=== PATIENT | female | born 1980 | race Caucasian/White ===

== ENCOUNTER 2019-04-27 17:23 | Emergency (ER) | payer OTHER, SELFPAY ==
[2019-04-27 17:33] VITALS: BP 122/78; PULSE 72; RESP 16; TEMP 36.9; O2SAT 99
--- NOTE | 2019-04-27 17:49 | ED.URI ---
HPI - URI/Sore Throat General Chief Complaint: Upper Respiratory Infection Stated Complaint: Sore Throat Time Seen by Provider: 04/27/19 17:49 Source: patient and RN notes reviewed Mode of arrival: ambulatory Limitations: no limitations History of Present Illness HPI Narrative: 38-year-old female presents with concern for sore throat, headache, exposure to strep pharyngitis, started this morning. Reports taking ibuprofen and Tylenol. MD elicited complaint: sore throat Related Data Home Medications Medication Instructions Recorded Confirmed lisinopril 02/10/19 Allergies Allergy/AdvReac Type Severity Reaction Status Date / Time codeine Allergy Intermediate Itching Verified 04/27/19 17:48 Sulfa (Sulfonamide Allergy Mild Unknown Verified 04/27/19 17:48 Antibiotics) Review of Systems Review of Systems: Narrative: CONSTITUTIONAL: Reports malaise, fatigue. Denies chills, sweats, or fever. EYES: Denies visual changes, redness, or discharge. ENT: Denies rhinorrhea, congestion, sinus pain, otalgia. Reports sore throat. CARDIOVASCULAR: Denies chest pain, palpitations, or edema. RESPIRATORY: Denies cough or dyspnea. GASTROINTESTINAL: Denies abdominal pain, nausea, vomiting, diarrhea SKIN: Denies rash or itching. MUSCULOSKELETAL: Denies myalgia. NEUROLOGIC: Reports headache. All systems reviewed & are unremarkable except as noted in HPI and below PMFSH Past Medical History Medical History Anxiety Hypertension Vapes nicotine containing substance Comments At time of signature, agree with nursing past medical, surgical, social and family history. There is no relevant family history pertinent to the presenting complaint Exam Narrative: Exam Narrative: GENERAL: Well-appearing, well-nourished, and in no acute distress. HEAD: Normocephalic EYES: PERRLA, conjunctivae clear ENT: Nares clear, turbinates pink, no discharge. Mucous membranes moist. TM pearly streeter with sharp light reflex bilaterally; no tragal tenderness. Oropharynx erythematous without lesions. Tonsils enlarged and without exudate, no drooling, no hoarseness, no trismus. NECK: Supple. CHEST: Clear to auscultation, breath sounds equal. No wheezing, rhonchi, rales, or stridor. No respiratory distress, speaks in full sentences. HEART: Regular rate and rhythm. No murmur heard. Normal peripheral pulses. SKIN: Warm, dry, no rash. NEURO: Alert and oriented x3. PSYCH: Normal mood and affect Course Course Emergency Course: Patient is aware of diagnosis, understands and agrees to treatment plan. Anticipatory guidance given. Patient agrees to follow-up as directed and is aware of reasons to seek care at the emergency department. Portions of this record may have been created with voice recognition software Vital Signs Vital signs: Vital Signs Temperature 98.4 F 04/27/19 17:33 Pulse Rate 72 04/27/19 17:33 Respiratory Rate 16 04/27/19 17:33 Blood Pressure 122/78 04/27/19 17:33 Pulse Oximetry 99 04/27/19 17:33 Temperature 98.4 F 04/27/19 17:33 Pulse Rate 72 04/27/19 17:33 Respiratory Rate 16 04/27/19 17:33 Blood Pressure 122/78 04/27/19 17:33 Pulse Oximetry 99 04/27/19 17:33 Reviewed. MDM - URI/Sore Throat MDM Narrative Medical decision making narrative: Differential diagnosis considered: Strep pharyngitis, allergic rhinitis, upper respiratory tract infection, sinusitis, rhinosinusitis, nasopharyngitis. viral pharyngitis, otitis media, otitis externa, pneumonia, bronchitis, viral cough syndrome, viral syndrome, and influenza. Exam findings show no acute concerns or changes; patient is non-toxic appearing and is in no distress. Patient is appropriate for outpatient treatment and follow-up. Lab Data Attestation: I reviewed the patient's lab results. Labs: Strep Screen Presumptive Negative *(Reference Range: Negative)* Critical Care Time Critical Care Time Critical Care Time: No Discharge Pl
== END 2019-04-27 18:17 | disposition home or self-care (01) ==
PROVIDERS: Emergency Provider Nurse Practitioner
DX: J03.90 Acute tonsillitis, unspecified (principal); Z20.818 Contact with and (suspected) exposure to other bacterial communicable diseases; I10 Essential (primary) hypertension; F17.200 Nicotine dependence, unspecified, uncomplicated
CPT/HCPCS: 87081; 87880; 99213; G0463

== ENCOUNTER 2021-01-25 17:59 | Emergency (ER) | payer OTHER, SELFPAY ==
[2021-01-25 18:14] VITALS: BP 141/93; PULSE 103; RESP 16; TEMP 36.9; O2SAT 99
--- NOTE | 2021-01-25 18:43 | ED.URI ---
HPI - URI/Sore Throat General Chief Complaint: Upper Respiratory Infection Stated Complaint: sore throat History of Present Illness HPI Narrative: This is a 40 year old female that come in complaining of 2 days of sore throat not feeling well, congestion, head pressure and feeling tired. Patient denies taking anything at this time for symptoms says that her child has strep throat at home Related Data Home Medications Medication Instructions Recorded Confirmed Iron 01/25/21 Xanax 01/25/21 ergocalciferol (vitamin D2) 01/25/21 folic acid 01/25/21 hydrochlorothiazide 01/25/21 lisinopril 01/25/21 metformin 01/25/21 Allergies Allergy/AdvReac Type Severity Reaction Status Date / Time codeine Allergy Intermediate Itching Verified 04/27/19 17:48 Sulfa (Sulfonamide Allergy Mild Unknown Verified 04/27/19 17:48 Antibiotics) vancomycin Allergy Hives Verified 01/25/21 18:29 Review of Systems Review of Systems: sore throat, body aches, headache All systems reviewed & are unremarkable except as noted in HPI and below PMFSH Past Medical History Medical History Anxiety Hypertension Vapes nicotine containing substance Comments At time as signature, I have reviewed and agree with nursing past medical, social, surgical and family history. Please see nursing chart for further information. There is no relevant family history pertinent to the presenting complaint. Exam Narrative: GENERAL:Ill-appearing, well-nourished, and in no acute distress. HEAD:Normocephalic EYES: PERRLA and EOMI. ENT: Nares clear,Mucous membranes moist. Pharyngeal erythema with enlarged tonsils CHEST: Clear to auscultation. No respiratory distress. HEART: Regular rate and rhythm. ABDOMEN: Soft, nontender,. EXTREMITIES: Normal range of motion. No edema. SKIN: Warm, dry, no rash. NEURO: No focal deficits. Alert and oriented x3. Course Course Emergency Course: Negative strep Vital Signs Vital signs: Vital Signs Temperature 98.4 F 01/25/21 18:14 Pulse Rate 103 H 01/25/21 18:14 Respiratory Rate 16 01/25/21 18:14 Blood Pressure 141/93 H 01/25/21 18:14 Pulse Oximetry 99 01/25/21 18:14 Temperature 98.4 F 01/25/21 18:14 Pulse Rate 103 H 01/25/21 18:14 Respiratory Rate 16 11/11/21 18:14 Blood Pressure 141/93 H 01/25/21 18:14 Pulse Oximetry 99 01/25/21 18:14 MDM - URI/Sore Throat Differential Diagnosis Differential diagnosis: Likely upper respiratory infection, otitis media, sinusitis, viral infection, bronchitis, influenza and pharyngitis Lab Data Labs: Strep Screen Presumptive Negative *(Reference Range: Negative)* Discharge Plan Discharge Clinical Impression: Upper respiratory infection Qualifiers: URI type: unspecified URI Qualified Code(s): J06.9 - Acute upper respiratory infection, unspecified Acute tonsillitis Qualifiers: Pharyngitis/tonsillitis etiology: unspecified etiology Qualified Code(s): J03.90 - Acute tonsillitis, unspecified Hypertension Qualifiers: Hypertension type: unspecified Qualified Code(s): I10 - Essential (primary) hypertension Patient Disposition: Home, Self-Care Condition: Stable Instructions: Antibiotic Form, Swimmer's Ear (ED), Tonsillitis (ED) Additional Instructions: Your strep test today was negative. A throat culture will be sent to the laboratory for further testing. IF the test is positive, you will receive a phone call within 48 hours and an appropriate antibiotic will be initiated at that time. You will not receive a phone call if the test is negative. Until the throat culture proves otherwise, you should proceed with treating this is as a viral pharyngitis. Salt water gargles may alleviate some of your throat discomfort. Take Tylenol and/or ibuprofen per the package instructions for pain/fever. We will go ahead and start you on some antibiotics Go to the ER if yo
== END 2021-01-25 18:52 | disposition home or self-care (01) ==
PROVIDERS: Emergency Provider Nurse Practitioner Family
DX: J06.9 Acute upper respiratory infection, unspecified (principal); J03.90 Acute tonsillitis, unspecified; I10 Essential (primary) hypertension; F17.290 Nicotine dependence, other tobacco product, uncomplicated
CPT/HCPCS: 87081; 87880; 99213; G0463

== ENCOUNTER 2021-06-08 10:36 | Emergency (ER) | payer OTHER, SELFPAY ==
[2021-06-08 10:51] VITALS: BP 126/83; PULSE 68; RESP 16; TEMP 37.1; O2SAT 100
--- NOTE | 2021-06-08 11:05 | ED.URI ---
HPI - URI/Sore Throat General Chief Complaint: Upper Respiratory Infection Stated Complaint: Sore Throat Time Seen by Provider: 06/08/21 11:05 Source: patient Mode of arrival: ambulatory Limitations: no limitations History of Present Illness HPI Narrative: 40-year-old female presents here with complaint of sore throat. States that it started this morning, also complaining of headache. Patient son was diagnosed with strep throat this morning. She is also wanting a strep swab. Denies fever and chills. Denies nausea vomiting diarrhea. All systems reviewed and negative except as noted above. Related Data Home Medications Medication Instructions Recorded Confirmed alprazolam 1 mg PO DIRECTED 06/08/21 06/08/21 amitriptyline 25 mg PO DIRECTED 06/08/21 06/08/21 ergocalciferol (vitamin D2) 1,250 mcg PO DIRECTED 06/08/21 06/08/21 famotidine 20 mg PO DAILY 06/08/21 06/08/21 folic acid 1 mg PO DAILY 06/08/21 06/08/21 lisinopril-hydrochlorothiazide 1 tablet PO DAILY 06/08/21 06/08/21 omeprazole 20 mg PO DAILY 06/08/21 06/08/21 trazodone 50 mg PO DIRECTED 06/08/21 06/08/21 Allergies Allergy/AdvReac Type Severity Reaction Status Date / Time codeine Allergy Mild Nausea and Verified 06/08/21 10:58 Vomiting Sulfa (Sulfonamide Allergy Mild Hives Verified 06/08/21 10:58 Antibiotics) vancomycin Allergy Hives Verified 06/08/21 10:58 Review of Systems Review of Systems: CONSTITUTIONAL: Denies fever, chills, or sweats. EYES: Denies visual changes, redness, or discharge. ENT: Denies rhinorrhea, congestion. Reports sore throat. Denies otalgia. CARDIOVASCULAR: Denies chest pain, palpitations, or edema. RESPIRATORY: Denies cough or dyspnea. GASTROINTESTINAL: Denies abdominal pain, nausea, vomiting, or diarrhea. GENITOURINARY: Denies dysuria or hematuria. SKIN: Denies rash or itching. MUSCULOSKELETAL: Denies back pain, joint pain, or myalgia. NEUROLOGIC: Reports headache. Denies numbness, or weakness. PSYCHIATRIC: Denies anxiety or depression. All other systems reviewed are negative, except as documented in HPI. PMFSH Past Medical History Medical History Anxiety Hypertension Vapes nicotine containing substance Comments At time of signature, agree with nursing past medical, surgical, social and family history. There is no relevant family history pertinent to the presenting complaint. Exam Narrative: GENERAL: This is a well-nourished, well-developed patient, in no apparent distress. HEAD: normocephalic, atraumatic. EYES: PERRL. Sclera clear/white. Vision is grossly intact. EARS: External ears normal NOSE: External nose normal THROAT: Mucous membranes moist, mild erythema to posterior pharynx with swelling. No exudates. NECK: Neck supple, non-tender without lymphadenopathy, masses or thyromegaly. CARDIOVASCULAR: Regular rate and rhythm without murmurs, gallops, or rubs. RESPIRATORY: Clear to auscultation. Breath sounds equal bilaterally. No wheezes, rales, or rhonchi. SKIN: warm, Dry, intact with no suspicious lesions or rash, good texture and turgor. NEURO: awake, alert, and oriented to person, place and time. There were no obvious focal neurologic abnormalities. EXTREMITIES: Normal range of motion to all extremities.. Course Course Level of Care: Express Care Visit Vital Signs Vital signs: Vital Signs Temperature 37.1 C 06/08/21 10:51 Pulse Rate 68 06/08/21 10:51 Respiratory Rate 16 06/08/21 10:51 Blood Pressure 126/83 06/08/21 10:51 Pulse Oximetry 100 06/08/21 10:51 Temperature 37.1 C 06/08/21 10:51 Pulse Rate 68 06/08/21 10:51 Respiratory Rate 16 06/08/21 10:51 Blood Pressure 126/83 06/08/21 10:51 Pulse Oximetry 100 06/08/21 10:51 Reviewed MDM - URI/Sore Throat MDM Narrative Medical decision making narrative: Rapid strep negative. Due to patient's symptoms and exposure to strep we will treat with ABX. Patient does not want amoxicillin, causes uses of
== END 2021-06-08 11:22 | disposition home or self-care (01) ==
PROVIDERS: Emergency Provider Nurse Practitioner Family
DX: J02.9 Acute pharyngitis, unspecified (principal); Z20.818 Contact with and (suspected) exposure to other bacterial communicable diseases; I10 Essential (primary) hypertension; F17.290 Nicotine dependence, other tobacco product, uncomplicated; F41.9 Anxiety disorder, unspecified
CPT/HCPCS: 87081; 87880; 99213; G0463

== ENCOUNTER 2021-07-29 10:33 | Emergency (ER) | payer OTHER, SELFPAY ==
[2021-07-29 10:43] VITALS: BP 119/81; PULSE 90; RESP 16; TEMP 36.6; O2SAT 100
--- NOTE | 2021-07-29 10:52 | ED.FEMALEGU ---
HPI - Female Genitourinary General Chief complaint: Urogenital-Female Stated complaint: UTI Time Seen by Provider: 07/29/21 10:52 Source: patient Mode of arrival: ambulatory Limitations: no limitations History of Present Illness HPI Narrative: 40-year-old female presents with complaint of urinary frequency, dysuria for 2 to 3 days. Reports she is using [id number] Azo with little relief. Today started having low back aching and pelvic pressure. Denies vaginal discharge. No concern for STDs. Afebrile. All systems reviewed and negative except as noted above. Related Data Home Medications Medication Instructions Recorded Confirmed alprazolam 1 mg PO DIRECTED 06/08/21 06/08/21 amitriptyline 25 mg PO DIRECTED 06/08/21 06/08/21 ergocalciferol (vitamin D2) 1,250 mcg PO DIRECTED 06/08/21 06/08/21 famotidine 20 mg PO DAILY 06/08/21 06/08/21 folic acid 1 mg PO DAILY 06/08/21 06/08/21 lisinopril-hydrochlorothiazide 1 tablet PO DAILY 06/08/21 06/08/21 omeprazole 20 mg PO DAILY 06/08/21 06/08/21 trazodone 50 mg PO DIRECTED 06/08/21 06/08/21 Allergies Allergy/AdvReac Type Severity Reaction Status Date / Time codeine Allergy Mild Nausea and Verified 06/08/21 10:58 Vomiting Sulfa (Sulfonamide Allergy Mild Hives Verified 06/08/21 10:58 Antibiotics) vancomycin Allergy Hives Verified 06/08/21 10:58 Review of Systems Review of Systems: CONSTITUTIONAL: Denies fever, chills, or sweats. EYES: Denies visual changes, redness, or discharge. ENT: Denies rhinorrhea, congestion, sore throat, or otalgia. CARDIOVASCULAR: Denies chest pain, palpitations, or edema. RESPIRATORY: Denies cough or dyspnea. GASTROINTESTINAL: Denies abdominal pain, nausea, vomiting, or diarrhea. GENITOURINARY: Reports dysuria, frequency, urgency. Denies hematuria. SKIN: Denies rash or itching. MUSCULOSKELETAL: Denies back pain, joint pain, or myalgia. NEUROLOGIC: Denies headache, numbness, or weakness. PSYCHIATRIC: Denies anxiety or depression. All other systems reviewed are negative, except as documented in HPI. PMFSH Past Medical History Medical History Anxiety Hypertension Vapes nicotine containing substance Comments At time of signature, agree with nursing past medical, surgical, social and family history. There is no relevant family history pertinent to the presenting complaint. Exam Narrative: GENERAL: This is a well-nourished, well-developed patient, in no apparent distress. HEAD: normocephalic, atraumatic. EYES: PERRL. Sclera clear/white. Vision is grossly intact. EARS: External ears normal NOSE: External nose normal NECK: Neck supple, non-tender without lymphadenopathy, masses or thyromegaly. CARDIOVASCULAR: Regular rate and rhythm without murmurs, gallops, or rubs. RESPIRATORY: Clear to auscultation. Breath sounds equal bilaterally. No wheezes, rales, or rhonchi. SKIN: warm, Dry, intact with no suspicious lesions or rash, good texture and turgor. NEURO: awake, alert, and oriented to person, place and time. There were no obvious focal neurologic abnormalities. EXTREMITIES: Normal range of motion to all extremities. Course Course Level of Care: Express Care Visit Vital Signs Vital signs: Vital Signs Temperature 36.6 C 07/29/21 10:43 Pulse Rate 90 07/29/21 10:43 Respiratory Rate 16 07/29/21 10:43 Blood Pressure 119/81 07/29/21 10:43 Pulse Oximetry 100 07/29/21 10:43 Temperature 36.6 C 07/29/21 10:43 Pulse Rate 90 07/29/21 10:43 Respiratory Rate 16 07/29/21 10:43 Blood Pressure 119/81 07/29/21 10:43 Pulse Oximetry 100 07/29/21 10:43 Reviewed MDM - Female Genitourinary MDM Narrative Medical decision making narrative: Patient is aware of diagnosis, understands and agrees to treatment plan. Anticipatory guidance given. Patient agrees to follow-up as directed and is aware of reasons to seek care at the emergency department. Portions of this record may have been created
== END 2021-07-29 11:06 | disposition home or self-care (01) ==
PROVIDERS: Emergency Provider Nurse Practitioner Family
DX: N39.0 Urinary tract infection, site not specified (principal); F41.9 Anxiety disorder, unspecified; I10 Essential (primary) hypertension; F17.290 Nicotine dependence, other tobacco product, uncomplicated
CPT/HCPCS: 81003; 87086; 87088; 99213; G0463

== ENCOUNTER 2021-08-28 17:44 | Outpatient (CLI) | payer OTHER, SELFPAY ==
--- NOTE | ~2021-08-28 | XR_ITS ---
EXAM: XR lumbar spine 2-3V DATE: 08/28/2021 18:09 HISTORY: ACUTE BI LOW BACK PAIN W/O SCIATICA . COMPARISON: 07/27/2018. FINDINGS: Cholecystectomy clips. 5 nonrib-bearing lumbar-type vertebral bodies. Pedicles intact. Nor mal vertebral body alignment. Vertebral body heights preserved. Mild disc space narrowing at L3-4 wit h marginal osteophytosis. Moderate disc space narrowing at L4-5. Multilevel lower lumbar facet sclero sis. No fracture or dislocation. IMPRESSION: Mild and moderate degenerative disc disease at L3-4 and L4-5, respectively. Multilevel lo wer lumbar facet arthropathy. Reviewed, dictated and finalized at location K. IMPRESSION: Mild and moderate degenerative disc disease at L3-4 and L4-5, respe ctively. Multilevel lower lumbar facet arthropathy.
== END 2021-08-28 17:45 | disposition home or self-care (01) ==
PROVIDERS: PCP Internal Medicine; Visit Provider Internal Medicine
DX: M47.816 Spondylosis without myelopathy or radiculopathy, lumbar region (principal)
CPT/HCPCS: 72100

== ENCOUNTER 2021-09-11 11:47 | Outpatient (CLI) | payer OTHER, SELFPAY ==
--- NOTE | ~2021-09-11 | MMUS_ITS ---
EXAMINATION: MM diagnostic dane BI w jermaine, US breast RT complete HISTORY: Possible right breast mass seen on outside CT examination. TECHNIQUE: Additional 3-D tomosynthesis images of the breasts were performed and synthetic 2-D images were generated. CAD analysis was submitted and interpreted. High resolution complete right breast ul trasound was performed. COMPARISON: Comparison to multiple prior studies sequentially, with oldest reviewed study dated 03/2017. BREAST PARENCHYMAL COMPOSITION: The breasts are heterogenously dense, which may obscure small masses FINDINGS: MAMMOGRAPHIC FINDINGS: There are no new masses, calcifications or architectural distortion in either breast to suggest malig tyrel. Stable benign-appearing left breast mass, previously biopsy-proven benign. ULTRASOUND: Complete US of all 4 quadrants of the right breast and retroareolar region was reviewed. Normal heter ogeneous echotexture without focal solid or cystic mass. IMPRESSION: 1. No evidence for malignancy in either breast. 2. Routine yearly screening mammogram and regular clinical breast examination are recommended. BI-RADS Category 2: Benign finding(s). Reviewed, dictated and finalized at location A. IMPRESSION: 1. No evidence for malignancy in either breast. 2. Routine yearly screening mammogram and regular clinical breast examination a re recommended. BI-RADS Category 2: Benign finding(s).
== END 2021-09-11 11:48 | disposition home or self-care (01) ==
LOC: ANHIMG 11:49
PROVIDERS: PCP Internal Medicine; Visit Provider Internal Medicine
DX: N63.11 Unspecified lump in the right breast, upper outer quadrant (principal)
CPT/HCPCS: 76641; 77062; 77066; G0279

== ENCOUNTER 2021-10-17 13:15 | Emergency (ER) | payer OTHER, SELFPAY ==
[2021-10-17 13:21] VITALS: BP 136/80; PULSE 78; RESP 16; TEMP 37.5; O2SAT 99
--- NOTE | 2021-10-17 13:38 | ED.URI ---
HPI - URI/Sore Throat General Chief Complaint: Upper Respiratory Infection Stated Complaint: sore throat Time Seen by Provider: 10/17/21 13:38 Source: patient Mode of arrival: ambulatory Limitations: no limitations History of Present Illness HPI Narrative: 40 yo F presents with c/o sore throat, sinus congestion, headache, fatigue since yesterday. No cough. Denes N/v/d. Taking tylenol to treat sore throat. Needs covid test before she can attend her PCP appt today at 3PM. All systems reviewed and negative except as noted above. Related Data Home Medications Medication Instructions Recorded Confirmed alprazolam 1 mg tablet 1 mg PO DIRECTED 06/08/21 06/08/21 amitriptyline 25 mg tablet 25 mg PO DIRECTED 06/08/21 06/08/21 ergocalciferol (vitamin D2) 1,250 1,250 mcg PO DIRECTED 06/08/21 06/08/21 mcg (50,000 unit) capsule famotidine 20 mg tablet 20 mg PO DAILY 06/08/21 06/08/21 folic acid 1 mg tablet 1 mg PO DAILY 06/08/21 06/08/21 omeprazole 20 mg capsule,delayed 20 mg PO DAILY 06/08/21 06/08/21 release trazodone 50 mg tablet 50 mg PO DIRECTED 06/08/21 06/08/21 atenolol 25 mg tablet mg 10/17/21 [id number] 10/17/21 hydrochlorothiazide 12.5 mg tablet mg 10/17/21 ondansetron HCl 4 mg tablet mg 10/17/21 potassium chloride 10 mEq meq PO 10/17/21 tablet,extended release Allergies Allergy/AdvReac Type Severity Reaction Status Date / Time codeine Allergy Mild Nausea and Verified 06/08/21 10:58 Vomiting Sulfa (Sulfonamide Allergy Mild Hives Verified 06/08/21 10:58 Antibiotics) vancomycin Allergy Hives Verified 06/08/21 10:58 Review of Systems Review of Systems: CONSTITUTIONAL: Reports fever, chills, or sweats. Reports fatigue. EYES: Denies visual changes, redness, or discharge. ENT: Denies rhinorrhea. Reports sinus congestion, sore throat. Denies otalgia. CARDIOVASCULAR: Denies chest pain, palpitations, or edema. RESPIRATORY: Denies cough or dyspnea. GASTROINTESTINAL: Denies abdominal pain, nausea, vomiting, or diarrhea. GENITOURINARY: Denies dysuria or hematuria. SKIN: Denies rash or itching. MUSCULOSKELETAL: Denies back pain, joint pain, or myalgia. NEUROLOGIC: Reports headache. Denies numbness, or weakness. PSYCHIATRIC: Denies anxiety or depression. All other systems reviewed are negative, except as documented in HPI. [facility] Past Medical History Medical History Anxiety Hypertension Vapes nicotine containing substance Comments At time of signature, agree with nursing past medical, surgical, social and family history. There is no relevant family history pertinent to the presenting complaint. Exam Narrative: GENERAL: This is a well-nourished, well-developed patient. Patient ill-appearing but no distress. HEAD: normocephalic, atraumatic. EYES: PERRL. Sclera clear/white. Vision is grossly intact. EARS: External ears normal, auditory canals clear and without drainage, TMs normal without perforation. Hearing grossly intact. NOSE: External nose normal with no obvious nasal discharge, nares without redness, no rhinorrhea. THROAT: Mucous membranes moist, mild erythema to posterior pharynx. No exudates, swelling or tonsillar enlargement. NECK: Neck supple, non-tender without lymphadenopathy, masses or thyromegaly. CARDIOVASCULAR: Regular rate and rhythm without murmurs, gallops, or rubs. RESPIRATORY: Clear to auscultation. Breath sounds equal bilaterally. No wheezes, rales, or rhonchi. SKIN: warm, Dry, intact with no suspicious lesions or rash, good texture and turgor. NEURO: awake, alert, and oriented to person, place and time. There were no obvious focal neurologic abnormalities. EXTREMITIES: No joint tenderness, effusion, or edema noted. Course Course Level of Care: Express Care Visit Vital Signs Vital signs: Vital Signs Temperature 37.5 C 10/17/21 13:21 Pulse Rate 78 10/17/21 13:21 Respiratory Rate 16 10/17/21 13:21 Blood Pressure 136/80 10/17/21 1
== END 2021-10-17 14:28 | disposition home or self-care (01) ==
PROVIDERS: Emergency Provider Nurse Practitioner Family; PCP Internal Medicine
DX: J06.9 Acute upper respiratory infection, unspecified (principal); Z20.822 Contact with and (suspected) exposure to COVID-19; I10 Essential (primary) hypertension; F17.290 Nicotine dependence, other tobacco product, uncomplicated; F41.9 Anxiety disorder, unspecified
CPT/HCPCS: 87081; 87426; 87804; 87880; 99213; C9803; G0463

== ENCOUNTER 2021-12-30 15:14 | Emergency (ER) | payer OTHER, SELFPAY ==
--- NOTE | 2021-12-30 15:21 | ED.URI ---
HPI - URI/Sore Throat General Chief Complaint: Upper Respiratory Infection Stated Complaint: Fever,Sore Throat Time Seen by Provider: 12/30/21 15:50 Source: patient and RN notes reviewed Mode of arrival: ambulatory Limitations: no limitations History of Present Illness HPI Narrative: 41-year-old female with history of asplenia presents with concern for sore throat, fever, headache that started yesterday. Reports exposure to people at home with similar symptoms. She has taken Tylenol. MD elicited complaint: sore throat Related Data Home Medications Medication Instructions Recorded Confirmed alprazolam 1 mg tablet 1 mg PO DIRECTED 06/08/21 12/30/21 amitriptyline 25 mg tablet 25 mg PO DIRECTED 06/08/21 12/30/21 ergocalciferol (vitamin D2) 1,250 1,250 mcg PO DIRECTED 06/08/21 12/30/21 mcg (50,000 unit) capsule famotidine 20 mg tablet 20 mg PO DAILY 06/08/21 12/30/21 folic acid 1 mg tablet 1 mg PO DAILY 06/08/21 12/30/21 omeprazole 20 mg capsule,delayed 20 mg PO DAILY 06/08/21 12/30/21 release trazodone 50 mg tablet 50 mg PO DIRECTED 06/08/21 12/30/21 atenolol 25 mg tablet 25 mg PO DAILY 10/17/21 12/30/21 hydrochlorothiazide 12.5 mg tablet 12.5 mg PO DAILY 10/17/21 12/30/21 Allergies Allergy/AdvReac Type Severity Reaction Status Date / Time codeine Allergy Mild Nausea and Verified 06/08/21 10:58 Vomiting Sulfa (Sulfonamide Allergy Mild Hives Verified 06/08/21 10:58 Antibiotics) vancomycin Allergy Hives Verified 06/08/21 10:58 Review of Systems Review of Systems: CONSTITUTIONAL: Reports malaise, fever. EYES: Denies visual changes, redness, or discharge. ENT: Denies rhinorrhea, congestion, sinus pain, otalgia. Reports sore throat. CARDIOVASCULAR: Denies chest pain, palpitations, or edema. RESPIRATORY: Reports cough. Denies dyspnea. GASTROINTESTINAL: Denies abdominal pain, nausea, vomiting, diarrhea SKIN: Denies rash or itching. MUSCULOSKELETAL: Denies myalgia. NEUROLOGIC: Reports headache. All systems reviewed & are unremarkable except as noted in HPI and below PMFSH Past Medical History Medical History Anxiety Hypertension Vapes nicotine containing substance Comments At time of signature, agree with nursing past medical, surgical, social and family history. There is no relevant family history pertinent to the presenting complaint Exam Narrative: GENERAL: Nontoxic-appearing and in no acute distress. HEAD: Normocephalic EYES: PERRLA, conjunctivae clear ENT: Nares clear. Mucous membranes moist. TM pearly streeter with sharp light reflex bilaterally; no tragal tenderness. Oropharynx erythematous without lesions. Tonsils not enlarged and without exudate, no drooling, no hoarseness, no trismus, uvula midline. NECK: Supple. No lymphadenopathy CHEST: Clear to auscultation, breath sounds equal. No wheezing, rhonchi, rales, or stridor. No respiratory distress, speaks in full sentences. HEART: Regular rate and rhythm. No murmur heard. SKIN: Warm, dry, no rash. NEURO: Alert and oriented x3. PSYCH: Normal mood and affect Course Course Emergency Course: Patient is aware of diagnosis, understands and agrees to treatment plan. Anticipatory guidance given. Patient agrees to follow-up as directed and is aware of reasons to seek care at the emergency department. Portions of this record may have been created with voice recognition software Level of Care: Express Care Visit Vital Signs Vital signs: Reviewed. MDM - URI/Sore Throat MDM Narrative Medical decision making narrative: Differential diagnosis considered: [place] virus, strep pharyngitis, allergic rhinitis, upper respiratory tract infection, sinusitis, rhinosinusitis, nasopharyngitis. viral pharyngitis, otitis media, otitis externa, pneumonia, bronchitis, viral cough syndrome, viral syndrome, and influenza. Exam findings show no acute concerns or changes; patient is non-toxic appearing and is in no distress. Patient is appropriate for outp
[2021-12-30 15:28] VITALS: BP 153/84; PULSE 96; RESP 16; TEMP 36.9; O2SAT 100
== END 2021-12-30 16:09 | disposition home or self-care (01) ==
PROVIDERS: Emergency Provider Nurse Practitioner; PCP Internal Medicine
DX: J02.0 Streptococcal pharyngitis (principal); F41.9 Anxiety disorder, unspecified; I10 Essential (primary) hypertension; F17.290 Nicotine dependence, other tobacco product, uncomplicated
CPT/HCPCS: 87880; 99213; G0463

== ENCOUNTER 2022-03-21 11:09 | Emergency (ER) | payer OTHER, SELFPAY ==
[2022-03-21 11:31] VITALS: BP 149/84; PULSE 86; RESP 16; TEMP 37.1; O2SAT 99
--- NOTE | 2022-03-21 11:56 | ED.URI ---
HPI - URI/Sore Throat General Chief Complaint: Upper Respiratory Infection Stated Complaint: e/n/t Time Seen by Provider: 03/21/22 11:57 History of Present Illness HPI Narrative: 41-year-old female presented for complaint of sore throat and the facial pressure over the last 2 days. She endorses she is ?breathing fire from nose up to eyes. She denies shortness of breath, wheezing, nausea, vomiting, diarrhea, fevers or chills. Not taking anything for symptoms. Reports sick contact 3 days ago. Patient vapes. 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 Cholecystectomy, pancreatic stents. Related Data Home Medications Medication Instructions Recorded Confirmed alprazolam 1 mg tablet 1 mg PO DIRECTED 06/08/21 03/21/22 amitriptyline 25 mg tablet 25 mg PO DIRECTED 06/08/21 03/21/22 ergocalciferol (vitamin D2) 1,250 1,250 mcg PO DIRECTED 06/08/21 03/21/22 mcg (50,000 unit) capsule famotidine 20 mg tablet 20 mg PO DAILY 06/08/21 03/21/22 folic acid 1 mg tablet 1 mg PO DAILY 06/08/21 03/21/22 omeprazole 20 mg capsule,delayed 20 mg PO DAILY 06/08/21 03/21/22 release trazodone 50 mg tablet 50 mg PO DIRECTED 06/08/21 03/21/22 atenolol 25 mg tablet 25 mg PO DAILY 10/17/21 03/21/22 hydrochlorothiazide 12.5 mg tablet 12.5 mg PO DAILY 10/17/21 03/21/22 Allergies Allergy/AdvReac Type Severity Reaction Status Date / Time codeine Allergy Mild Nausea and Verified 06/08/21 10:58 Vomiting Sulfa (Sulfonamide Allergy Mild Hives Verified 06/08/21 10:58 Antibiotics) vancomycin Allergy Hives Verified 06/08/21 10:58 Review of Systems Review of Systems: per HPI [facility] Past Medical History Medical History Anxiety Hypertension Vapes nicotine containing substance Exam Narrative: GENERAL: Ill-appearing, no acute distress. EYES: conjunctivae clear ENT: Mucous membranes moist. TMs pearly streeter with normal light reflex bilaterally; no tragal tenderness. Oropharynx erythematous without lesions. Tonsils enlarged 1+ without exudate. No drooling, no hoarseness, no trismus, uvula midline. No tripod positioning, hot potato voice, or soft palate swelling. NECK: Supple. No lymphadenopathy CHEST: Clear to auscultation, breath sounds equal. No respiratory distress, speaks in full sentences. HEART: Regular rate and rhythm. No murmur heard. SKIN: Warm, dry, no rash. NEURO: Alert and oriented x3. Course Course Emergency Course: Patient is aware of diagnosis, understands and agrees to treatment plan. Anticipatory guidance given. Patient agrees to follow-up as directed and is aware of reasons to seek care at the emergency department. Portions of this record may have been created with voice recognition software Level of Care: Express Care Visit Vital Signs Vital signs: Vital Signs Temperature 98.8 F 03/21/22 11:31 Pulse Rate 86 03/21/22 11:31 Respiratory Rate 16 03/21/22 11:31 Blood Pressure 149/84 H 03/21/22 11:31 Pulse Oximetry 99 03/21/22 11:31 Oxygen Delivery Room Air 03/21/22 11:31 Temperature 98.8 F 03/21/22 11:31 Pulse Rate 86 03/21/22 11:31 Respiratory Rate 16 03/21/22 11:31 Blood Pressure 149/84 H 03/21/22 11:31 Pulse Oximetry 99 03/21/22 11:31 Oxygen Delivery Room Air 03/21/22 11:31 MDM - URI/Sore Throat MDM Narrative Medical decision making narrative: flu and strep results reviewed with pt. Advise supportive treatments. Patient is appropriate for outpatient treatment and follow-up. Differential Diagnosis Differential diagnosis: Likely upper respiratory infection, viral infection and pharyngitis Lab Data Labs: Influenza A Screen Negative Reference Range: Negative Influenza B Screen Negative Reference Range: Negative Strep Screen Presumptive Negative *(Refer
== END 2022-03-21 12:36 | disposition home or self-care (01) ==
PROVIDERS: Emergency Provider Nurse Practitioner Family; PCP Internal Medicine
DX: J06.9 Acute upper respiratory infection, unspecified (principal); I10 Essential (primary) hypertension; F41.9 Anxiety disorder, unspecified
CPT/HCPCS: 87081; 87804; 87880; 99213; G0463

== ENCOUNTER 2022-04-19 12:04 | Emergency (ER) | payer OTHER, SELFPAY ==
--- NOTE | 2022-04-19 12:11 | ED.URI ---
HPI - URI/Sore Throat General Chief Complaint: Upper Respiratory Infection Stated Complaint: sore throat Time Seen by Provider: 04/19/22 12:39 Source: patient and RN notes reviewed Mode of arrival: ambulatory Limitations: no limitations History of Present Illness HPI Narrative: 41-year-old female presents with concern for nasal congestion, sinus pain, pressure, drainage for 9-10 days. Reports her son has strep throat. Reports she has been taking Tylenol and using sinus rinses. MD elicited complaint: cough, sore throat, rhinorrhea and nasal congestion Related Data Home Medications Medication Instructions Recorded Confirmed alprazolam 1 mg tablet 1 mg PO DIRECTED 06/08/21 04/19/22 amitriptyline 25 mg tablet 25 mg PO DIRECTED 06/08/21 04/19/22 ergocalciferol (vitamin D2) 1,250 1,250 mcg PO DIRECTED 06/08/21 04/19/22 mcg (50,000 unit) capsule famotidine 20 mg tablet 20 mg PO DAILY 06/08/21 04/19/22 folic acid 1 mg tablet 1 mg PO DAILY 06/08/21 04/19/22 omeprazole 20 mg capsule,delayed 20 mg PO DAILY 06/08/21 04/19/22 release trazodone 50 mg tablet 50 mg PO DIRECTED 06/08/21 04/19/22 atenolol 25 mg tablet 25 mg PO DAILY 10/17/21 04/19/22 hydrochlorothiazide 12.5 mg tablet 12.5 mg PO DAILY 10/17/21 04/19/22 Allergies Allergy/AdvReac Type Severity Reaction Status Date / Time codeine Allergy Mild Nausea and Verified 04/19/22 12:15 Vomiting Sulfa (Sulfonamide Allergy Mild Hives Verified 04/19/22 12:15 Antibiotics) vancomycin Allergy Hives Verified 04/19/22 12:15 Review of Systems Review of Systems: CONSTITUTIONAL: Denies malaise, chills, sweats, or fever. EYES: Denies visual changes, redness, or discharge. ENT: Reports rhinorrhea, congestion, sinus pain, and sore throat. CARDIOVASCULAR: Denies chest pain, palpitations, or edema. RESPIRATORY: Reports cough. Denies dyspnea. GASTROINTESTINAL: Denies abdominal pain, nausea, vomiting, diarrhea SKIN: Denies rash or itching. MUSCULOSKELETAL: Denies myalgia. NEUROLOGIC: Denies headache. All systems reviewed & are unremarkable except as noted in HPI and below PMFSH Past Medical History Medical History Anxiety Hypertension Vapes nicotine containing substance Comments At time of signature, agree with nursing past medical, surgical, social and family history. There is no relevant family history pertinent to the presenting complaint Exam Narrative: GENERAL: Well-appearing, well-nourished, and in no acute distress. HEAD: Normocephalic EYES: PERRLA, conjunctivae clear ENT: Nares clear, turbinates edematous and erythematous, clear discharge. Mucous membranes moist. TM pearly streeter with dull light reflex bilaterally; no tragal tenderness. Oropharynx not erythematous without lesions. Tonsils not enlarged and without exudate, no drooling, no hoarseness, no trismus, uvula midline. NECK: Supple. No lymphadenopathy CHEST: Clear to auscultation, breath sounds equal. No wheezing, rhonchi, rales, or stridor. No respiratory distress, speaks in full sentences. HEART: Regular rate and rhythm. No murmur heard. SKIN: Warm, dry, no rash. NEURO: Alert and oriented x3. PSYCH: Normal mood and affect Course Course Emergency Course: Patient is aware of diagnosis, understands and agrees to treatment plan. Anticipatory guidance given. Patient agrees to follow-up as directed and is aware of reasons to seek care at the emergency department. Portions of this record may have been created with voice recognition software Level of Care: Express Care Visit Vital Signs Vital signs: Reviewed. MDM - URI/Sore Throat MDM Narrative Medical decision making narrative: Differential diagnosis considered: [place] virus, strep pharyngitis, allergic rhinitis, upper respiratory tract infection, sinusitis, rhinosinusitis, nasopharyngitis. viral pharyngitis, otitis media, otitis externa, pneumonia, bronchitis, viral cough syndrome, viral syndrome, and influenza. Exam findings show no acute
[2022-04-19 12:19] VITALS: BP 142/82; PULSE 85; RESP 14; TEMP 37.2; O2SAT 100
== END 2022-04-19 13:03 | disposition home or self-care (01) ==
PROVIDERS: Emergency Provider Nurse Practitioner
DX: J06.9 Acute upper respiratory infection, unspecified (principal); Z20.818 Contact with and (suspected) exposure to other bacterial communicable diseases; I10 Essential (primary) hypertension; F41.9 Anxiety disorder, unspecified
CPT/HCPCS: 87081; 87880; 99213; G0463

== ENCOUNTER 2022-07-01 10:07 | Emergency (ER) | payer OTHER, SELFPAY ==
[2022-07-01 10:32] VITALS: BP 146/88; PULSE 76; RESP 16; TEMP 37.2; O2SAT 98
[2022-07-01 10:37] VITALS: BP 146/88; PULSE 76; RESP 16; TEMP 37.2; O2SAT 98
--- NOTE | 2022-07-01 11:21 | ED.URI ---
HPI - URI/Sore Throat General Chief Complaint: Upper Respiratory Infection Stated Complaint: Sore Throat Time Seen by Provider: 07/01/22 10:59 Source: patient Mode of arrival: ambulatory Limitations: no limitations History of Present Illness HPI Narrative: Patient presents today with a one-week history of sore throat, hoarseness, postnasal drip. Denies congestion, rhinorrhea, fever. Reports history of seasonal allergies for which he takes an antihistamine. She has also been gargling with salt water. She currently rates her pain 4/10. She is asplenic. Related Data Home Medications Medication Instructions Recorded Confirmed alprazolam 1 mg tablet 1 mg PO DIRECTED 06/08/21 04/19/22 amitriptyline 25 mg tablet 25 mg PO DIRECTED 06/08/21 04/19/22 ergocalciferol (vitamin D2) 1,250 1,250 mcg PO DIRECTED 06/08/21 04/19/22 mcg (50,000 unit) capsule famotidine 20 mg tablet 20 mg PO DAILY 06/08/21 04/19/22 folic acid 1 mg tablet 1 mg PO DAILY 06/08/21 04/19/22 omeprazole 20 mg capsule,delayed 20 mg PO DAILY 06/08/21 04/19/22 release atenolol 25 mg tablet 25 mg PO DAILY 10/17/21 04/19/22 hydrochlorothiazide 12.5 mg tablet 12.5 mg PO DAILY 10/17/21 04/19/22 acetaminophen 300 mg-codeine 30 mg tablet 07/01/22 tablet cyproheptadine 4 mg tablet mg 07/01/22 divalproex 125 mg tablet,delayed mg PO 07/01/22 release furosemide 20 mg tablet mg 07/01/22 potassium chloride 10 mEq meq PO 07/01/22 tablet,extended release Allergies Allergy/AdvReac Type Severity Reaction Status Date / Time codeine Allergy Mild Nausea and Verified 07/01/22 10:33 Vomiting Sulfa (Sulfonamide Allergy Mild Hives Verified 07/01/22 10:33 Antibiotics) vancomycin Allergy Mild Hives Verified 07/01/22 10:33 Review of Systems Review of Systems: CONSTITUTIONAL: Denies body aches, fever, chills, or sweats. EYES: Denies visual changes, redness, or discharge. ENT: Denies rhinorrhea, congestion, or otalgia.+ sore throat, postnasal drip, hoarseness CARDIOVASCULAR: Denies chest pain, palpitations, or edema. RESPIRATORY: Denies cough or dyspnea. GASTROINTESTINAL: Denies abdominal pain, nausea, vomiting, or diarrhea. GENITOURINARY: Denies dysuria or hematuria. SKIN: Denies rash, itching, or wounds. MUSCULOSKELETAL: Denies back pain, joint pain, or myalgia. NEUROLOGIC: Denies headache, numbness, tingling, or weakness. PSYCH: Denies depression or anxiety. PMFSH Past Medical History Medical History Anxiety Asplenia Hypertension Vapes nicotine containing substance Comments At time of signature, I have reviewed and agree with nursing past medical, surgical, social and family history unless otherwise noted. Please see nursing chart for further information. There is no relevant family history pertinent to the presenting complaint Exam Narrative: GENERAL: Well-appearing, well-nourished, and in no acute distress. HEAD: Normocephalic, atraumatic. EYES: EOMI. No redness or drainage. Conjunctivae normal. ENT: Mucous membranes pink and moist. Nares clear. No rhinorrhea. TMs normal bilaterally. Throat mildly erythematous without edema or exudate. Small amount of postnasal drainage. Uvula midline. Voice is worse. NECK: Normal AROM. Supple. No lymphadenopathy. CHEST: No respiratory distress. Clear to auscultation. HEART: Regular rate and rhythm. No murmur appreciated. Normal peripheral pulses. EXTREMITIES: Normal range of motion. No edema. SKIN: Warm, dry, no rash. Capillary refill normal. Normal skin turgor. NEURO: No focal deficits. Alert and oriented x3. Gait steady. PSYCH: Normal affect. No signs of depression or anxiety. Course Course Level of Care: Express Care Visit Vital Signs Vital signs: Vital Signs Temperature 98.9 F 07/01/22 10:32 Pulse Rate 76 07/01/22 10:32 Respiratory Rate 16 07/01/22 10:32 Blood Pressure 146/88 H 07/01/22 10:32 Pulse Oximetry 98 07/01/22 10:32 Oxygen Delivery Room Air 0
== END 2022-07-01 11:30 | disposition home or self-care (01) ==
PROVIDERS: Emergency Provider Nurse Practitioner; PCP Internal Medicine
DX: J30.2 Other seasonal allergic rhinitis (principal); I10 Essential (primary) hypertension; F41.9 Anxiety disorder, unspecified
CPT/HCPCS: 87081; 87880; 99213; G0463

== ENCOUNTER 2022-08-01 10:36 | Emergency (ER) | payer OTHER, SELFPAY ==
--- NOTE | 2022-08-01 10:41 | ED.SKABFB ---
HPI - Skin/Abscess/Foreign Bdy General Chief complaint: Skin/Abscess/Foreign Body Stated complaint: Wounds/Bumps Time Seen by Provider: 08/01/22 10:38 Source: patient Mode of arrival: ambulatory Limitations: no limitations History of Present Illness HPI narrative: Patient is a 41-year-old female that presents with draining wound under left breast. Patient states that has had large amounts of white discharge followed by some bloody discharge since last night. Patient also reports smaller wound to back that is painful and red. Denies any drainage to wound on back. Denies any nausea, vomiting, diarrhea, fever, chills. Reports history of staph infection. Related Data Home Medications Medication Instructions Recorded Confirmed alprazolam 1 mg tablet 1 mg PO DIRECTED 06/08/21 08/01/22 amitriptyline 25 mg tablet 25 mg PO DIRECTED 06/08/21 08/01/22 ergocalciferol (vitamin D2) 1,250 1,250 mcg PO DIRECTED 06/08/21 08/01/22 mcg (50,000 unit) capsule famotidine 20 mg tablet 20 mg PO DAILY 06/08/21 08/01/22 folic acid 1 mg tablet 1 mg PO DAILY 06/08/21 08/01/22 omeprazole 20 mg capsule,delayed 20 mg PO DAILY 06/08/21 08/01/22 release atenolol 25 mg tablet 25 mg PO DAILY 10/17/21 08/01/22 hydrochlorothiazide 12.5 mg tablet 12.5 mg PO DAILY 10/17/21 08/01/22 acetaminophen 300 mg-codeine 30 mg 1 tablet PO DIRECTED 07/01/22 08/01/22 tablet cyproheptadine 4 mg tablet 4 mg PO DIRECTED 07/01/22 08/01/22 divalproex 125 mg tablet,delayed 125 mg PO DIRECTED 07/01/22 08/01/22 release furosemide 20 mg tablet 20 mg PO DAILY 07/01/22 08/01/22 potassium chloride 10 mEq 10 meq PO DAILY 07/01/22 08/01/22 tablet,extended release Allergies Allergy/AdvReac Type Severity Reaction Status Date / Time codeine Allergy Mild Nausea and Verified 08/01/22 10:40 Vomiting Sulfa (Sulfonamide Allergy Mild Hives Verified 08/01/22 10:40 Antibiotics) vancomycin Allergy Mild Hives Verified 08/01/22 10:40 Review of Systems Review of Systems: All systems reviewed & are unremarkable except as noted in HPI and below Constitutional: Constitutional: Denies body ache(s), Denies chills, Denies fatigue, Denies fever(s), Denies headache(s), Denies malaise and Denies weakness Eyes: Eyes: Denies blurry vision, Denies irritation and Denies loss of vision ENT: Denies otalgia, Denies headache(s), Denies nasal discharge, Denies sinus pain and Denies sore throat Cardiovascular: Cardiovascular: Denies chest pain, Denies irregular heart rhythm and Denies dyspnea Respiratory: Respiratory: Denies dyspnea Gastrointestinal: Gastrointestinal: Denies abdominal pain, Denies melena, Denies hematochezia, Denies diarrhea, Denies nausea and Denies vomiting Musculoskeletal: Musculoskeletal: Denies back pain, Denies myalgias and Denies arthralgias Integumentary/Breasts: Skin/Breast: Denies pruritus, Denies rash and Reports wounds Neurologic: Denies headache(s), Denies loss of vision and Denies weakness Psychiatric: Psychiatric: Reports no additional psychiatric complaints Endocrine: Endocrine: Denies fatigue PMFSH Past Medical History Medical History Anxiety Asplenia Hypertension Vapes nicotine containing substance Comments At time of signature, agree with nursing past medical, surgical, social and family history. There is no relevant family history pertinent to the presenting complaint. Exam Const: General: cooperative, healthy appearing, comfortable, no acute distress and well nourished Nutritional Appearance: well nourished Orientation/consciousness: patient oriented x3 Limitations: no limitations HENMT: Head: normal to inspection, normocephalic and atraumatic Ears: hearing grossly normal bilaterally and external ears normal Face/Nose/Sinus: Normal external nose present, normal facial exam and face symmetric Face and sinus: normal facial exam and face symmetric Mouth: Yes lip normal Eyes: General: appearance normal, both eye
[2022-08-01 10:56] VITALS: BP 140/86; PULSE 85; RESP 16; TEMP 37.1; O2SAT 100
== END 2022-08-01 11:25 | disposition home or self-care (01) ==
PROVIDERS: Emergency Provider Nurse Practitioner Family; PCP Internal Medicine
DX: L02.213 Cutaneous abscess of chest wall (principal); I10 Essential (primary) hypertension; F17.290 Nicotine dependence, other tobacco product, uncomplicated; F41.9 Anxiety disorder, unspecified
CPT/HCPCS: 87070; 87075; 87076; 87205; 99213; G0463

== ENCOUNTER 2022-08-14 18:04 | Emergency (ER) | payer OTHER, SELFPAY ==
[2022-08-14 18:25] VITALS: BP 159/86; PULSE 72; RESP 16; TEMP 36.9; O2SAT 100
--- NOTE | 2022-08-14 18:43 | ED.GENADULT ---
HPI - General Adult General Chief complaint: Unspecified Stated complaint: multi complaints Source: patient Mode of arrival: ambulatory Limitations: no limitations History of Present Illness HPI narrative: 41-year-old female presenting for multiple complaints today. She endorses she was seen here recently for abscess under left breast, completed the prescribed antibiotics as directed. Now is concerned the abscess is returning and thinks she has a yeast infection from completing the antibiotics. States the abscess site had a 'pus pocket' on it and after scratching it the site drained blood, and states there is a 'core' that needs to come out. Has kept it covered with bandaid. Also reports redness under the left breast with itching and burning sensation under the breast and around the nipple. Since the clinic visit, she took a steroid course for poison [place] to left forearm which is now healing. States she tends to get UTI's after taking steroids, Endorses burning with urination, frequency. Denies flank pain, abdominal pain, n/v/d/f/c. Related Data Home Medications Medication Instructions Recorded Confirmed alprazolam 1 mg tablet 1 mg PO DIRECTED 06/08/21 08/14/22 amitriptyline 25 mg tablet 25 mg PO DIRECTED 06/08/21 08/14/22 ergocalciferol (vitamin D2) 1,250 1,250 mcg PO DIRECTED 06/08/21 08/14/22 mcg (50,000 unit) capsule famotidine 20 mg tablet 20 mg PO DAILY 06/08/21 08/14/22 folic acid 1 mg tablet 1 mg PO DAILY 06/08/21 08/14/22 omeprazole 20 mg capsule,delayed 20 mg PO DAILY 06/08/21 08/14/22 release atenolol 25 mg tablet 25 mg PO DAILY 10/17/21 08/14/22 hydrochlorothiazide 12.5 mg tablet 12.5 mg PO DAILY 10/17/21 08/14/22 acetaminophen 300 mg-codeine 30 mg 1 tablet PO DIRECTED 07/01/22 08/14/22 tablet cyproheptadine 4 mg tablet 4 mg PO DIRECTED 07/01/22 08/14/22 divalproex 125 mg tablet,delayed 125 mg PO DIRECTED 07/01/22 08/14/22 release furosemide 20 mg tablet 20 mg PO DAILY 04/17/23 05/31/23 potassium chloride 10 mEq 10 meq PO DAILY 07/01/22 08/14/22 tablet,extended release Allergies Allergy/AdvReac Type Severity Reaction Status Date / Time codeine Allergy Mild Nausea and Verified 08/14/22 18:21 Vomiting Sulfa (Sulfonamide Allergy Mild Hives Verified 08/14/22 18:21 Antibiotics) vancomycin Allergy Mild Hives Verified 08/14/22 18:21 Review of Systems Review of Systems: CONSTITUTIONAL: Denies body aches, fever, chills, or sweats. EYES: Denies visual changes, redness, or discharge. ENT: Denies rhinorrhea, congestion CARDIOVASCULAR: Denies chest pain, palpitations, or edema. RESPIRATORY: Denies cough or dyspnea. GASTROINTESTINAL: Denies abdominal pain, nausea, vomiting, or diarrhea. : per HPI SKIN: per HPI MUSCULOSKELETAL: Denies back pain, joint pain, or myalgia. NEUROLOGIC: Denies headache, numbness, tingling, or weakness. PMFSH Past Medical History Medical History Anxiety Asplenia Hypertension Vapes nicotine containing substance Comments At time of signature, I have reviewed and agree with nursing past medical, surgical, social and family history unless otherwise noted. Please see nursing chart for further information. There is no relevant family history pertinent to the presenting complaint Exam Narrative: GENERAL: Well-appearing HEAD: Normocephalic, atraumatic. EYES: conjunctivae clear, and EOMI. ENT: Mucous membranes moist. Oropharynx without edema, erythema or lesions. NECK: Supple. No lymphadenopathy CHEST: Clear to auscultation. HEART: Regular rate and rhythm. SKIN: Warm, dry. Erythematous papular rash under the left breast c/w candidiasis. Left lateral breast fold with approximately 1 cm diameter brown flat nodule consistent with healing abscess. No fluctuance or induration to the site, no active drainage. Left forearm with scaly erythematous rash c/w healing contact dermatitis. Scattered mildly erythematous/pink papules to arms an
== END 2022-08-14 19:40 | disposition home or self-care (01) ==
PROVIDERS: Emergency Provider Nurse Practitioner Family
DX: L30.9 Dermatitis, unspecified (principal); R10.2 Pelvic and perineal pain; I10 Essential (primary) hypertension; F17.290 Nicotine dependence, other tobacco product, uncomplicated; F41.9 Anxiety disorder, unspecified
CPT/HCPCS: 81003; 87086; 99213; G0463

== ENCOUNTER → 2022-08-25 13:57 | Outpatient (CLI) | payer OTHER, SELFPAY ==
--- NOTE | ~2022-08-25 | XR_ITS ---
XR shoulder RT min 2V DATE: 08/25/2022 15:13 INDICATION: Right shoulder pain, limited range of motion TECHNIQUE: 4 views COMPARISON: right shoulder FINDINGS: No fracture or dislocation, periosteal reaction or bone destruction or abnormal soft tissue calcification. Normal alignment at the acromioclavicular and glenohumeral joints. IMPRESSION: Negative Reviewed, dictated and finalized at location A. IMPRESSION: Negative
== END ==
PROVIDERS: PCP Pain Medicine Pain Medicine; Visit Provider Pain Medicine Pain Medicine
DX: M25.511 Pain in right shoulder (principal)
CPT/HCPCS: 73030

== ENCOUNTER 2022-08-25 14:18 | Emergency (ER) | payer OTHER, SELFPAY ==
[2022-08-25 14:22] VITALS: BP 153/83; PULSE 96; RESP 16; TEMP 36.9; O2SAT 100
[2022-08-25 14:24] VITALS: BP 153/83; PULSE 96; RESP 16; TEMP 36.9; O2SAT 100
--- NOTE | 2022-08-25 14:24 | ECG_ITS ---
Measurements Intervals [place] Rate: 86 P: 57 VT: 142 QRS: 52 QRSD: 88 T: 32 QT: 366 QTc: 438 Interpretive Statements SINUS RHYTHM NORMAL ELECTROCARDIOGRAM COMPARED WITH 08/12/2018 NO DIFFERENCE Electronically Signed On 08-26-2022 11:14:22 CDT by Kirk Acharya M.D.
--- NOTE | 2022-08-25 14:26 | ED.GENADULT ---
HPI - General Adult General Chief complaint: Unspecified Stated complaint: Multiple Complaints Time Seen by Provider: 08/25/22 14:20 Source: patient Mode of arrival: ambulatory Limitations: no limitations History of Present Illness HPI narrative: Margarita is a 41-year-old female patient presenting to clinic today with complaints of heart palpitations. She reports that she feels as though her heart rate is dropping and increasing. States that her watch stated her highest heart rate was 120s and lowest heart rate was in the 40s. She is currently taking atenolol. Has taken is Xanax prior to arrival in the clinic today. States she experiences some short of breath when her heart rate drops in the 40s. Denies any chest pain or shortness of breath currently. Vital signs are currently stable with a heart rate of 96 beats per minute. EKG was completed in the clinic. She denies any headache, dizziness, weakness, visual changes, chest pain, edema, or abdominal pain. 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 No history of Jaimee Parkinson's white or other cardiac dysrhythmias Related Data Home Medications Medication Instructions Recorded Confirmed alprazolam 1 mg tablet 1 mg PO DIRECTED 06/08/21 08/14/22 amitriptyline 25 mg tablet 25 mg PO DIRECTED 06/08/21 08/14/22 ergocalciferol (vitamin D2) 1,250 1,250 mcg PO DIRECTED 06/08/21 08/14/22 mcg (50,000 unit) capsule famotidine 20 mg tablet 20 mg PO DAILY 06/08/21 08/14/22 folic acid 1 mg tablet 1 mg PO DAILY 06/08/21 08/14/22 omeprazole 20 mg capsule,delayed 20 mg PO DAILY 06/08/21 08/14/22 release atenolol 25 mg tablet 25 mg PO DAILY 10/17/21 08/14/22 hydrochlorothiazide 12.5 mg tablet 12.5 mg PO DAILY 10/17/21 08/14/22 acetaminophen 300 mg-codeine 30 mg 1 tablet PO DIRECTED 07/01/22 08/14/22 tablet cyproheptadine 4 mg tablet 4 mg PO DIRECTED 07/01/22 08/14/22 divalproex 125 mg tablet,delayed 125 mg PO DIRECTED 07/01/22 08/14/22 release furosemide 20 mg tablet 20 mg PO DAILY 07/01/22 08/14/22 potassium chloride 10 mEq 10 meq PO DAILY 07/01/22 08/14/22 tablet,extended release buprenorphine 5 mcg/hour weekly 08/25/22 transdermal patch Allergies Allergy/AdvReac Type Severity Reaction Status Date / Time codeine Allergy Mild Nausea and Verified 08/25/22 14:21 Vomiting Sulfa (Sulfonamide Allergy Mild Hives Verified 08/25/22 14:21 Antibiotics) vancomycin Allergy Mild Hives Verified 08/25/22 14:21 Review of Systems Review of Systems: Pertinent positives per HPI. Patient denies any fever, chills, rash, headache, visual changes, dizziness, cough, runny nose, sore throat,chest pain, palpitations, nausea, vomiting, diarrhea, constipation, abdominal pain, or any urinary issues. PMFSH Past Medical History Medical History Anxiety Asplenia Hypertension Vapes nicotine containing substance Comments At the time of my signature, I reviewed and agree with the nursing past medical, surgical, social, and family history. There is no relevant family history pertinent to the patient complaint. Exam Narrative: General: Well-developed, in no apparent distress Head: Normocephalic, atraumatic. Cardio: Regular rate and rhythm, s1 and s2 normal, no murmur appreciated. Resp: Clear to auscultation bilaterally, no rhonchi, rales, wheezing or rubs. Extremities: No deformity, no edema, no cyanosis, capillary refill less than 2 seconds, peripheral pulses palpable and strong. Integumentary: [place], warm, and dry, intact without lesion, no rashes. Course Course Emergency Course: Portions of this record may have been created with voice recognition software. Level of Care: Express Care Visit Vital Signs Vital signs: Vital Signs Temperature 36.9 C 08/25/22 14:22 Pulse Rate 96 08/25/22 14:22 Respiratory Rate 16 08/25/22 14:22 Blood Pressure 153/83 H 08/25/22 14:22 Pulse Oximetry 100 08/25/22 14:22 Oxygen Delivery Room Air 08/25/22 14
== END 2022-08-25 15:00 | disposition home or self-care (01) ==
PROVIDERS: Emergency Provider Nurse Practitioner Family; PCP Pain Medicine Pain Medicine
DX: R00.2 Palpitations (principal); I10 Essential (primary) hypertension; F17.200 Nicotine dependence, unspecified, uncomplicated; F41.9 Anxiety disorder, unspecified
CPT/HCPCS: 93005; 99213; G0463

== ENCOUNTER 2022-10-18 14:17 | Emergency (ER) | payer OTHER, SELFPAY ==
--- NOTE | 2022-10-18 14:25 | ED.GENADULT ---
HPI - General Adult General Chief complaint: Urogenital-Female Stated complaint: Sore Throat Time Seen by Provider: 10/18/22 14:26 Source: patient, RN notes reviewed and old records reviewed Mode of arrival: ambulatory Limitations: no limitations History of Present Illness HPI narrative: 41-year-old female presents to the [facility] with multiple complaints. 1. First complaint is patient states that she just finished an antibiotic from a UTI, developed a yeast infection and has been using [id number] products for the last 3-4 days. Also tried calling her primary care provider and they will not return her call. Requesting a Diflucan Patient also has a small red itchy rash to the right forearm, and also the right lower abdomen. States it just appeared today. Denies any fevers. No new contacts. No new soaps, ointments, lotions, detergents or foods. Patient also states she has had sore throat and sore gums. Was not able to put her dentures in today. States it just started just prior to arrival Related Data Home Medications Medication Instructions Recorded Confirmed alprazolam 1 mg tablet 1 mg PO DIRECTED 06/08/21 10/18/22 ergocalciferol (vitamin D2) 1,250 1,250 mcg PO DIRECTED 06/08/21 10/18/22 mcg (50,000 unit) capsule famotidine 20 mg tablet 20 mg PO DAILY 06/08/21 10/18/22 folic acid 1 mg tablet 1 mg PO DAILY 06/08/21 10/18/22 omeprazole 20 mg capsule,delayed 20 mg PO DAILY 06/08/21 10/18/22 release atenolol 25 mg tablet 25 mg PO DAILY 10/17/21 10/18/22 hydrochlorothiazide 12.5 mg tablet 12.5 mg PO DAILY 10/17/21 10/18/22 acetaminophen 300 mg-codeine 30 mg 1 tablet PO DIRECTED 07/01/22 10/18/22 tablet divalproex 125 mg tablet,delayed 125 mg PO DIRECTED 07/01/22 10/18/22 release potassium chloride 10 mEq 10 meq PO DAILY 07/01/22 10/18/22 tablet,extended release Allergies Allergy/AdvReac Type Severity Reaction Status Date / Time codeine Allergy Mild Nausea and Verified 08/25/22 14:21 Vomiting Sulfa (Sulfonamide Allergy Mild Hives Verified 08/25/22 14:21 Antibiotics) vancomycin Allergy Mild Hives Verified 08/25/22 14:21 Review of Systems Review of Systems: All systems reviewed & are unremarkable except as noted in HPI and below Constitutional: Constitutional: Reports no additional constitutional complaints Eyes: Eyes: Reports no additional eye complaints ENT: Reports as per HPI Cardiovascular: Cardiovascular: Reports no additional cardiovascular complaints, Denies chest pain and Denies dyspnea Respiratory: Respiratory: Reports no additional respiratory complaints, Denies chest congestion, Denies cough and Denies dyspnea Gastrointestinal: Gastrointestinal: Reports no additional gastrointestinal complaints, Denies abdominal pain, Denies nausea and Denies vomiting Genitourinary: Genitourinary: Reports as per HPI Musculoskeletal: Musculoskeletal: Reports no additional musculoskeletal complaints Integumentary/Breasts: Skin/Breast: Reports as per HPI Neurologic: Reports system reviewed and no additional complaints, except as documented Psychiatric: Psychiatric: Reports no additional psychiatric complaints Allergic/Immunologic: Allergic/Immunologic: Reports no additional allergic/immunologic complaints PMFSH Past Medical History Medical History Anxiety Asplenia Back pain Hypertension Leg pain, bilateral Vapes nicotine containing substance Comments At the time of my signature, I reviewed and agree with the nursing past medical, surgical, social, and family history. There is no relevant family history pertinent to the patient complaint. Exam Const: General: cooperative, healthy appearing, comfortable, no acute distress, well developed, alert and well nourished Nutritional Appearance: well nourished Orientation/consciousness: patient oriented x3 Limitations: no limitations HENMT: Head: normal to inspection Ears: hearing grossly normal bilaterally, exter
[2022-10-18 14:26] VITALS: BP 142/97; PULSE 85; RESP 16; TEMP 36.9; O2SAT 100
== END 2022-10-18 14:47 | disposition home or self-care (01) ==
PROVIDERS: Emergency Provider Nurse Practitioner; PCP Pain Medicine Pain Medicine
DX: J02.9 Acute pharyngitis, unspecified (principal); B37.31 Acute candidiasis of vulva and vagina; L25.9 Unspecified contact dermatitis, unspecified cause; I10 Essential (primary) hypertension; F41.9 Anxiety disorder, unspecified; F12.90 Cannabis use, unspecified, uncomplicated
CPT/HCPCS: 87081; 87880; 99213; G0463

== ENCOUNTER 2022-11-14 10:31 | Emergency (ER) | payer OTHER, SELFPAY ==
[2022-11-14 10:52] VITALS: BP 151/83; PULSE 88; RESP 16; TEMP 37.4; O2SAT 100
[2022-11-14 10:55] VITALS: BP 151/83; PULSE 88; RESP 16; TEMP 37.4; O2SAT 100
--- NOTE | 2022-11-14 11:39 | ED.GENADULT ---
HPI - General Adult General Chief complaint: Upper Respiratory Infection Stated complaint: fever, mouth hurts, bump on nose, heart beat off Time Seen by Provider: 11/14/22 11:39 Source: patient, RN notes reviewed and old records reviewed Mode of arrival: ambulatory Limitations: no limitations History of Present Illness HPI narrative: 42 year old female who presents to [facility] care with complaints of 2 day history of nasal congestion and drainage and awoke this morning with 102 fever. Patient reports that she feels like a 'walking Zombie' with generalized body pain, her nose is sore inside and has red raised bump on the bridge of her nose and also has some white spots on her gums. She states that her blood pressure has been fluctuating more lately and she has had more palpitation than usual. Patient denies any known exposure to anyone ill. Patient reports that she has used peroxide gargles for her mouth and has taken some Tylenol for her fever. MD complaint: nasal drainage, generalized body aches, temperature reported, spots gums Onset (ago): day(s) (2) Location: face (nose) and mouth (gums) Severity scale (1-10): 8 Quality: aching and other (soreness) Treatments prior to arrival: other (Tylenol, peroxide/H20 gargles for her mouth) Related Data Home Medications Medication Instructions Recorded Confirmed alprazolam 1 mg tablet 1 mg PO DIRECTED 06/08/21 11/14/22 ergocalciferol (vitamin D2) 1,250 1,250 mcg PO DIRECTED 06/08/21 11/14/22 mcg (50,000 unit) capsule famotidine 20 mg tablet 20 mg PO DAILY 06/08/21 11/14/22 folic acid 1 mg tablet 1 mg PO DAILY 06/08/21 11/14/22 omeprazole 20 mg capsule,delayed 20 mg PO DAILY 06/08/21 11/14/22 release atenolol 25 mg tablet 25 mg PO DAILY 10/17/21 11/14/22 hydrochlorothiazide 12.5 mg tablet 12.5 mg PO DAILY 10/17/21 11/14/22 acetaminophen 300 mg-codeine 30 mg 1 tablet PO DIRECTED 07/01/22 11/14/22 tablet divalproex 125 mg tablet,delayed 125 mg PO DIRECTED 07/01/22 11/14/22 release potassium chloride 10 mEq 10 meq PO DAILY 07/01/22 11/14/22 tablet,extended release tizanidine 2 mg tablet 2 mg DIRECTED 11/14/22 11/14/22 Allergies Allergy/AdvReac Type Severity Reaction Status Date / Time codeine Allergy Mild Nausea and Verified 08/25/22 14:21 Vomiting nitrofurantoin Allergy Mild Swelling Verified 11/14/22 10:51 [From Macrobid] Sulfa (Sulfonamide Allergy Mild Hives Verified 08/25/22 14:21 Antibiotics) vancomycin Allergy Mild Hives Verified 08/25/22 14:21 Review of Systems Review of Systems: CONSTITUTIONAL: Reports fever this morning, chills, or sweats. EYES: Denies visual changes, redness, or discharge. ENT: Positive for rhinorrhea, congestion,no sore throat, or otalgia. CARDIOVASCULAR: Denies chest pain, states some palpitations, no edema. RESPIRATORY: Denies cough or dyspnea. GASTROINTESTINAL: Denies abdominal pain, nausea, vomiting, or diarrhea. GENITOURINARY: Denies dysuria or hematuria. SKIN: Denies rash or itching. MUSCULOSKELETAL: Reports chronic back and neck pain, ,reports generalized body aches NEUROLOGIC: Denies headache, numbness, or weakness. PSYCHIATRIC: Positive for history of anxiety or depression. 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, bilateral Vapes nicotine containing substance Surgical History Surgical History (Updated 11/15/22 @ 11:20 by Gudelia Rainey NP) H/O splenectomy thrombocytopenia,reports has 2 pancreatic stents History of bladder suspension procedure Hx of cholecystectomy Previous section Social History Social History (Updated 11/15/22 @ 11:21 by Gudelia Rainey NP) Smoking status: Current every day smoker Tobacco type: e-cigarettes/vaping Living arrangements: with family Gender identity
== END 2022-11-14 12:10 | disposition home or self-care (01) ==
PROVIDERS: Emergency Provider Registered Nurse; PCP Internal Medicine
DX: J32.9 Chronic sinusitis, unspecified (principal); K13.70 Unspecified lesions of oral mucosa; K21.9 Gastro-esophageal reflux disease without esophagitis; I10 Essential (primary) hypertension; F17.290 Nicotine dependence, other tobacco product, uncomplicated; F41.9 Anxiety disorder, unspecified
CPT/HCPCS: 99213; G0463

== ENCOUNTER 2022-11-21 10:19 | Emergency (ER) | payer OTHER, SELFPAY ==
[2022-11-21 10:45] VITALS: BP 122/77; PULSE 60; RESP 16; TEMP 36.9; O2SAT 100
--- NOTE | 2022-11-21 11:25 | ED.GENADULT ---
HPI - General Adult General Chief complaint: Ear Stated complaint: Ear Irritation/Sore Throat Time Seen by Provider: 11/21/22 11:13 Source: patient and RN notes reviewed Mode of arrival: ambulatory Limitations: no limitations History of Present Illness HPI narrative: Patient presents today complaining of fever up to 101, right jaw pain, sore throat, and right ear pain since last night. Pain increases with chewing. She has been taking ibuprofen for pain and also takes [place] 3 times daily for her chronic pain. Patient was sick last week with some sinus symptoms and was seen at [facility] and prescribed azithromycin. States those symptoms had resolved prior to current symptoms appearing. Patient was exposed to COVID-19 last week, and although she was also tested during her last week's visit, she is also requesting a test today. Related Data Home Medications Medication Instructions Recorded Confirmed alprazolam 1 mg tablet 1 mg PO DIRECTED 06/08/21 11/21/22 ergocalciferol (vitamin D2) 1,250 1,250 mcg PO DIRECTED 06/08/21 11/21/22 mcg (50,000 unit) capsule famotidine 20 mg tablet 20 mg PO DAILY 06/08/21 11/21/22 folic acid 1 mg tablet 1 mg PO DAILY 06/08/21 11/21/22 omeprazole 20 mg capsule,delayed 20 mg PO DAILY 06/08/21 11/21/22 release atenolol 25 mg tablet 25 mg PO DAILY 10/17/21 11/21/22 divalproex 125 mg tablet,delayed 125 mg PO DIRECTED 07/01/22 11/21/22 release potassium chloride 10 mEq 10 meq PO DAILY 07/01/22 11/21/22 tablet,extended release tizanidine 2 mg tablet 2 mg DIRECTED 11/14/22 11/21/22 Iron 65 mg PO DAILY 11/21/22 hydrocodone 7.5 mg-acetaminophen 1 tablet PO DIRECTED PRN Pain, 11/21/22 11/21/22 325 mg tablet Moderate Allergies Allergy/AdvReac Type Severity Reaction Status Date / Time codeine Allergy Mild Nausea and Verified 11/21/22 10:23 Vomiting nitrofurantoin Allergy Mild Swelling Verified 11/21/22 10:23 [From Macrobid] Sulfa (Sulfonamide Allergy Mild Hives Verified 11/21/22 10:23 Antibiotics) vancomycin Allergy Mild Hives Verified 11/21/22 10:23 Review of Systems Review of Systems: CONSTITUTIONAL: Denies body aches, chills, or sweats.+ fever EYES: Denies visual changes, redness, or discharge. ENT: Denies rhinorrhea, congestion.+ sore throat, right ear pain, jaw pain CARDIOVASCULAR: Denies chest pain, palpitations, or edema. RESPIRATORY: Denies cough or dyspnea. GASTROINTESTINAL: Denies abdominal pain, nausea, vomiting, or diarrhea. GENITOURINARY: Denies dysuria or hematuria. SKIN: Denies rash, itching, or wounds. MUSCULOSKELETAL: Denies back pain, joint pain, or myalgia. NEUROLOGIC: Denies headache, numbness, tingling, or weakness. PSYCH: Denies depression or anxiety. 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, bilateral Vapes nicotine containing substance Surgical History Surgical History H/O splenectomy thrombocytopenia,reports has 2 pancreatic stents History of bladder suspension procedure Hx of cholecystectomy Previous section Social History Social History Smoking status: Current every day smoker Tobacco type: e-cigarettes/vaping Living arrangements: with family Gender identity (if verbalized by the patient): Female Comments At time of signature, I have reviewed and agree with nursing past medical, surgical, social and family history unless otherwise noted. Please see nursing chart for further information. There is no relevant family history pertinent to the presenting complaint Exam Narrative: GENERAL: Well-appearing, well-nourished, and in no acute distress. HEAD: Normocephalic, atraumatic. EYES: EOMI. No redness or drainage. Conjunctivae normal. ENT: Mucous membranes
== END 2022-11-21 12:15 | disposition home or self-care (01) ==
PROVIDERS: Emergency Provider Nurse Practitioner; PCP Internal Medicine
DX: J02.9 Acute pharyngitis, unspecified (principal); Z20.822 Contact with and (suspected) exposure to COVID-19; F17.290 Nicotine dependence, other tobacco product, uncomplicated; K21.9 Gastro-esophageal reflux disease without esophagitis; I10 Essential (primary) hypertension; F41.9 Anxiety disorder, unspecified
CPT/HCPCS: 87081; 87426; 87880; 99213; C9803; G0463

== ENCOUNTER 2022-12-08 13:00 | Outpatient (CLI) | payer OTHER, SELFPAY ==
--- NOTE | ~2022-12-08 | MR_ITS ---
EXAMINATION: MR lumbar spine wo con DATE: 12/08/2022 13:37 INDICATION: Dorsalgia, unspecified. TECHNIQUE: Magnetic resonance imaging (MRI) of the lumbar spine was performed without intravenous con trast. Sequences included sagittal T2-weighted FSE, sagittal T2-weighted FS FSE, sagittal T1-weighted FSE, and axial T2-weighted FSE. COMPARISON: None FINDINGS: Bone alignment is normal. There are Schmorl's nodes at multiple levels. There is mildly dec reased disc height at L4-L5. The distal spinal cord signal intensity is normal. The conus medullaris is at L1-L2. The following disc levels are specifically discussed: L1-L2: The disc does not extend beyond the endplate margin. There is mild bilateral facet joint osteo arthritis. There is no neural foraminal stenosis. There is no central canal stenosis. L2-L3: The disc is mildly bulging. There is moderate right and severe left facet joint osteoarthritis . There is mild bilateral neural foraminal stenosis. There is no central canal stenosis. L3-L4: The disc is bulging. There is severe bilateral facet joint osteoarthritis. There is mild bilat eral neural foraminal stenosis. There is no central canal stenosis. L4-L5: The disc is bulging and has an annular fissure. There is moderate bilateral facet joint osteoa rthritis. There is mild bilateral neural foraminal stenosis. There is mild central canal stenosis. L5-S1: The disc does not extend beyond the endplate margin. There is severe bilateral facet joint ost eoarthritis. There is no neural foraminal stenosis. There is no central canal stenosis. IMPRESSION: 1. Mild lumbar spondylosis. Reviewed, dictated and finalized at location A. IMPRESSION: 1. Mild lumbar spondylosis.
== END 2022-12-08 13:01 | disposition home or self-care (01) ==
PROVIDERS: PCP Internal Medicine; Referring Provider Anesthesiology Pain Medicine; Visit Provider Neurological Surgery
DX: M79.604 Pain in right leg (principal); M79.605 Pain in left leg; M47.896 Other spondylosis, lumbar region
CPT/HCPCS: 72148

== ENCOUNTER 2022-12-19 19:02 | Emergency (ER) | payer OTHER, SELFPAY ==
[2022-12-19 19:10] VITALS: BP 136/81; PULSE 79; RESP 16; TEMP 37.3; O2SAT 100
--- NOTE | 2022-12-19 19:23 | ED.SKABFB ---
HPI - Skin/Abscess/Foreign Bdy General Chief complaint: Skin/Abscess/Foreign Body Stated complaint: Insect Bite History of Present Illness HPI narrative: Pt is a 42 y/o female, presents to with insect bite to her nose that she sustained on Friday while walking outdoors. She notes the area was painful briefly but improved after until yesterday when she noticed redness that worsened this morning after applying several OTC topical products, makeup and makeup remover. She has no pain to the inner nares bilaterally and she has no swelling or pain extending from the nasal bridge to the periorbital regions. She does endorse hx of similar skin infections in the past that resolved with oral abx and topical abx ointment. She is UTD on tetanus. She denies chance of . Related Data Home Medications Medication Instructions Recorded Confirmed alprazolam 1 mg tablet 1 mg PO DIRECTED 06/08/21 12/19/22 ergocalciferol (vitamin D2) 1,250 1,250 mcg PO DIRECTED 06/08/21 12/19/22 mcg (50,000 unit) capsule famotidine 20 mg tablet 20 mg PO DAILY 06/08/21 12/19/22 folic acid 1 mg tablet 1 mg PO DAILY 06/08/21 12/19/22 omeprazole 20 mg capsule,delayed 20 mg PO DAILY 06/08/21 12/19/22 release atenolol 25 mg tablet 25 mg PO DAILY 10/17/21 12/19/22 divalproex 125 mg tablet,delayed 125 mg PO DIRECTED 07/01/22 12/19/22 release potassium chloride 10 mEq 10 meq PO DAILY 07/01/22 12/19/22 tablet,extended release Iron 65 mg PO DAILY 11/21/22 12/19/22 hydrocodone 7.5 mg-acetaminophen 1 tablet PO DIRECTED PRN Pain, 11/21/22 12/19/22 325 mg tablet Moderate Allergies Allergy/AdvReac Type Severity Reaction Status Date / Time codeine Allergy Mild Nausea and Verified 12/19/22 19:05 Vomiting nitrofurantoin Allergy Mild Swelling Verified 12/19/22 19:05 [From Macrobid] Sulfa (Sulfonamide Allergy Mild Hives Verified 12/19/22 19:05 Antibiotics) vancomycin Allergy Mild Hives Verified 12/19/22 19:05 Review of Systems Constitutional: Constitutional: Reports as per HPI and Reports no additional constitutional complaints Eyes: Eyes: Reports as per HPI ENT: Reports as per HPI 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, bilateral Vapes nicotine containing substance Surgical History Surgical History H/O splenectomy thrombocytopenia,reports has 2 pancreatic stents History of bladder suspension procedure Hx of cholecystectomy Previous section Social History Social History Smoking status: Current every day smoker Tobacco type: e-cigarettes/vaping Living arrangements: with family Gender identity (if verbalized by the patient): Female Exam Const: General: healthy appearing and no acute distress Nutritional Appearance: well nourished Orientation/consciousness: patient oriented x3 Limitations: no limitations HENMT: Head: normal to inspection Ears: external ears normal and TM's normal bilaterally Face and sinus: sinuses nontender Mouth: Yes Normal oral and palatal mucosa present Throat: posterior oropharynx normal and uvula midline Other: pt has a small area of erythema to the mid nasal bridge with TTP. THere is some honey crusting present. No lymphangitis, no periorbital erythema, nasal turbinates and nares are unremarkable bilaterally Eyes: Conjunctivae: conjunctivae normal Pupils: Equal, round and reactive pupils present EOM: EOMs intact bilaterally Neck: Neck: normal visual inspection, no lymphadenopathy and no meningeal signs Resp: Effort & Inspection: normal respiratory effort Auscultation: clear to auscultation bilaterally Cardio: Rate: regular rate Rhythm: regular rhythm Back/Spine/Pelvis: Back: no CVA tenderness Skin: General skin exam: normal color O
== END 2022-12-19 19:38 | disposition home or self-care (01) ==
PROVIDERS: Emergency Provider Nurse Practitioner Family; PCP Internal Medicine
DX: J34.0 Abscess, furuncle and carbuncle of nose (principal); K21.9 Gastro-esophageal reflux disease without esophagitis; I10 Essential (primary) hypertension; F41.9 Anxiety disorder, unspecified; F17.290 Nicotine dependence, other tobacco product, uncomplicated
CPT/HCPCS: 97110; 97140; 97161; 99213; G0463

== ENCOUNTER 2022-12-26 11:24 | Outpatient (CLI) | payer OTHER, SELFPAY ==
--- NOTE | ~2022-12-26 | MMUS_ITS ---
EXAMINATION: MM diagnostic dane BI w jermaine, US breast LT limited HISTORY: Lump outer half of left breast TECHNIQUE: ML, MLO and CC 3-D tomosynthesis images of both breasts and additional cone compression To mosynthesis images of left breast were performed and synthetic 2-D images were generated. CAD analysi s was submitted and interpreted. High resolution upper outer and lower-outer quadrant left breast ult rasound was performed. COMPARISON: 09/11/2021 diagnostic bilateral mammogram and complete right breast ultrasound 08/12/2018 bilateral diagnostic mammogram and limited left breast ultrasound FINDINGS: MAMMOGRAPHIC FINDINGS: Approximately 1.5 x 2.3 cm circumscribed low-density mass with halo sign and biopsy marker is noted i n the upper outer left breast posteriorly. Another biopsy marker is noted anteriorly in the upper outer quadrant. Benign-appearing grouping microcalcifications are noted in the posterior outer mid left breast. No suspicious mass, architectural distortion, malignant calcification, skin thickening or retraction or significant new or developing density of either breast is noted otherwise. ULTRASOUND: 2:00 8 cm from nipple: 2.3 x 1.2 x 2.3 cm circumscribed hypoechoic solid mass without posterior shado wing, with some through transmission, likely a benign fibroadenoma 3:00 4 cm from nipple: Superficial parallel circumscribed hypoechoic lesion measuring 2.8 x 5.4 x 4.1 mm, with some through transmission, benign in appearance. No suspicious mass or shadowing is detected in the outer half of the left breast sonographically. IMPRESSION: 1. Benign findings 2. Routine annual mammographic screening is recommended BI-RADS Category 2: Benign finding(s). Reviewed, dictated and finalized at location A. IMPRESSION: 1. Benign findings 2. Routine annual mammographic screening is recommended BI-RADS Category 2: Benign finding(s).
== END 2022-12-26 11:25 | disposition home or self-care (01) ==
PROVIDERS: PCP Internal Medicine; Visit Provider Nurse Practitioner
DX: N63.20 Unspecified lump in the left breast, unspecified quadrant (principal)
CPT/HCPCS: 76642; 77062; 77066; G0279

== ENCOUNTER 2023-01-06 12:42 | Emergency (ER) | payer OTHER, SELFPAY ==
[2023-01-06 12:51] VITALS: BP 128/79; PULSE 62; RESP 16; TEMP 36.7; O2SAT 100
--- NOTE | 2023-01-06 13:06 | ED.EAR ---
HPI - Ear Problem General Chief complaint: Ear Stated complaint: nose swollen,left ear pain Time Seen by Provider: 01/06/23 13:06 Source: patient Mode of arrival: ambulatory Limitations: no limitations History of Present Illness HPI Narrative: 42-year-old female presents with complaint of redness and swelling to external aspect left nose that improved after taking doxycycline but is still painful. States now it feels like infection is inside left nare. Afebrile. No drainage. Patient thinks she needs another antibiotic. Also reports sticky drainage from bilateral eyes. No injury, does wear contacts. All systems reviewed and negative except as noted above. Related Data Home Medications Medication Instructions Recorded Confirmed alprazolam 1 mg tablet 1 mg PO DIRECTED 06/08/21 01/06/23 ergocalciferol (vitamin D2) 1,250 1,250 mcg PO DIRECTED 06/08/21 01/06/23 mcg (50,000 unit) capsule famotidine 20 mg tablet 20 mg PO DAILY 06/08/21 01/06/23 folic acid 1 mg tablet 1 mg PO DAILY 06/08/21 01/06/23 omeprazole 20 mg capsule,delayed 20 mg PO DAILY 06/08/21 01/06/23 release atenolol 25 mg tablet 25 mg PO DAILY 10/17/21 01/06/23 divalproex 125 mg tablet,delayed 125 mg PO DIRECTED 07/01/22 01/06/23 release potassium chloride 10 mEq 10 meq PO DAILY 07/01/22 01/06/23 tablet,extended release Iron 65 mg PO DAILY 11/21/22 12/19/22 Allergies Allergy/AdvReac Type Severity Reaction Status Date / Time codeine Allergy Mild Nausea and Verified 01/06/23 12:53 Vomiting nitrofurantoin Allergy Mild Swelling Verified 01/06/23 12:53 [From Macrobid] Sulfa (Sulfonamide Allergy Mild Hives Verified 01/06/23 12:53 Antibiotics) vancomycin Allergy Mild Hives Verified 01/06/23 12:53 Review of Systems Review of Systems: CONSTITUTIONAL: Denies fever, chills, or sweats. EYES: Denies visual changes, redness . Reports discharge from both eyes. ENT: Denies rhinorrhea, congestion, sore throat, or otalgia. CARDIOVASCULAR: Denies chest pain, palpitations, or edema. RESPIRATORY: Denies cough or dyspnea. GASTROINTESTINAL: Denies abdominal pain, nausea, vomiting, or diarrhea. GENITOURINARY: Denies dysuria or hematuria. SKIN: Denies rash or itching. Reports redness, swelling and pain to external and internal aspect of left nare MUSCULOSKELETAL: Denies back pain, joint pain, or myalgia. NEUROLOGIC: Denies headache, numbness, or weakness. PSYCHIATRIC: Denies anxiety or depression. All other systems reviewed are negative, except as documented in HPI. 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, bilateral Vapes nicotine containing substance Surgical History Surgical History H/O splenectomy thrombocytopenia,reports has 2 pancreatic stents History of bladder suspension procedure Hx of cholecystectomy Previous section Social History Social History Smoking status: Current every day smoker Tobacco type: e-cigarettes/vaping Living arrangements: with family Gender identity (if verbalized by the patient): Female Comments At time of signature, agree with nursing past medical, surgical, social and family history. There is no relevant family history pertinent to the presenting complaint. Exam Narrative: GENERAL: This is a well-nourished, well-developed patient, in no apparent distress. HEAD: normocephalic, atraumatic. EYES: PERRL. Sclera clear/white. Vision is grossly intact. EARS: External ears normal, auditory canals clear and without drainage, TMs normal without perforation. Hearing grossly intact. NOSE: redness, swelling and tenderness to L side of nose approx. 2cm diameter. L nare is swollen with redness, tender on exam. no drainage. noted. THROAT: Mucous membranes moist, po
== END 2023-01-06 13:26 | disposition home or self-care (01) ==
PROVIDERS: Emergency Provider Nurse Practitioner Family; PCP Internal Medicine
DX: J34.0 Abscess, furuncle and carbuncle of nose (principal); H10.33 Unspecified acute conjunctivitis, bilateral; F17.290 Nicotine dependence, other tobacco product, uncomplicated; K21.9 Gastro-esophageal reflux disease without esophagitis; I10 Essential (primary) hypertension; F41.9 Anxiety disorder, unspecified
CPT/HCPCS: 99213; G0463

== ENCOUNTER 2023-01-23 12:17 | Emergency (ER) | payer OTHER, SELFPAY ==
--- NOTE | 2023-01-23 12:28 | ED.GENADULT ---
HPI - General Adult General Chief complaint: Skin/Abscess/Foreign Body Stated complaint: stuffy nose, nose swollen on inside Time Seen by Provider: 01/23/23 12:28 Source: patient, RN notes reviewed and old records reviewed Mode of arrival: ambulatory Limitations: no limitations History of Present Illness HPI narrative: 42-year-old female presents to the [facility] with complaints of left-sided near swelling, redness, pain Patient had been seen for same on December 19 and again on January 06. Reports that she did follow-up with her primary care provider last week Patient has been prescribed doxycycline on the 1st visit, 2nd visit was a clindamycin. Has been using Mupirocin twice daily with a Q-tip Discussed with patient concern for treatment failure offered to send patient to ER for evaluation, patient states ?I do not have time right now. ? Will send in more Mupirocin and cefuroxime Will treat was being completed patient states that she will go to [facility]. Will drive herself. Related Data Home Medications Medication Instructions Recorded Confirmed alprazolam 1 mg tablet 1 mg PO DIRECTED 06/08/21 01/23/23 ergocalciferol (vitamin D2) 1,250 1,250 mcg PO DIRECTED 06/08/21 01/23/23 mcg (50,000 unit) capsule famotidine 20 mg tablet 20 mg PO DAILY 06/08/21 01/23/23 folic acid 1 mg tablet 1 mg PO DAILY 06/08/21 01/23/23 omeprazole 20 mg capsule,delayed 20 mg PO DAILY 06/08/21 01/23/23 release atenolol 25 mg tablet 25 mg PO DAILY 10/17/21 01/23/23 divalproex 125 mg tablet,delayed 125 mg PO DIRECTED 07/01/22 01/23/23 release potassium chloride 10 mEq 10 meq PO DAILY 07/01/22 01/23/23 tablet,extended release Allergies Allergy/AdvReac Type Severity Reaction Status Date / Time codeine Allergy Mild Nausea and Verified 01/23/23 12:27 Vomiting nitrofurantoin Allergy Mild Swelling Verified 01/23/23 12:27 [From Macrobid] Sulfa (Sulfonamide Allergy Mild Hives Verified 01/23/23 12:27 Antibiotics) vancomycin Allergy Mild Hives Verified 01/23/23 12:27 Review of Systems Review of Systems: All systems reviewed & are unremarkable except as noted in HPI and below Constitutional: Constitutional: Reports no additional constitutional complaints Eyes: Eyes: Reports no additional eye complaints ENT: Reports as per HPI Cardiovascular: Cardiovascular: Reports no additional cardiovascular complaints, Denies chest pain and Denies dyspnea Respiratory: Respiratory: Reports no additional respiratory complaints, Denies chest congestion, Denies cough and Denies dyspnea Gastrointestinal: Gastrointestinal: Reports no additional gastrointestinal complaints, Denies abdominal pain, Denies nausea and Denies vomiting Musculoskeletal: Musculoskeletal: Reports no additional musculoskeletal complaints Integumentary/Breasts: Skin/Breast: Reports system reviewed and no additional complaints, except as docu Neurologic: Reports system reviewed and no additional complaints, except as documented Psychiatric: Psychiatric: Reports no additional psychiatric complaints Allergic/Immunologic: Allergic/Immunologic: Reports no additional allergic/immunologic complaints 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, bilateral Vapes nicotine containing substance Surgical History Surgical History H/O splenectomy thrombocytopenia,reports has 2 pancreatic stents History of bladder suspension procedure Hx of cholecystectomy Previous section Social History Social History Smoking status: Current every day smoker Tobacco type: e-cigarettes/vaping Living arrangements: with family Gender identity (if verbalized by the patient): Female Comments At the time of my signature, I reviewed
[2023-01-23 12:31] VITALS: BP 129/84; PULSE 77; RESP 16; TEMP 37.1; O2SAT 100
[2023-01-23 12:34] VITALS: BP 129/84; PULSE 77; RESP 16; TEMP 37.1; O2SAT 100
== END 2023-01-23 13:01 | disposition short-term general hospital (02) ==
PROVIDERS: Emergency Provider Nurse Practitioner; PCP Internal Medicine
DX: J34.0 Abscess, furuncle and carbuncle of nose (principal); I10 Essential (primary) hypertension; F17.290 Nicotine dependence, other tobacco product, uncomplicated; Z79.899 Other long term (current) drug therapy
CPT/HCPCS: 99212; G0463

== ENCOUNTER 2023-02-01 09:35 | Emergency (ER) | payer OTHER, SELFPAY ==
[2023-02-01 09:56] VITALS: BP 176/81; PULSE 92; RESP 16; TEMP 37.4; O2SAT 99
--- NOTE | 2023-02-01 10:46 | ED.GENADULT ---
HPI - General Adult General Chief complaint: Recheck/Abnormal Lab/Rx Stated complaint: lost medicine last pm Time Seen by Provider: 02/01/23 10:46 Source: patient Mode of arrival: ambulatory Limitations: no limitations History of Present Illness HPI narrative: 42-year-old female [facility] with complaints of a numbness on the top of her head, down her left arm, and of the left lower leg. Patient states she is unaware whether the symptoms are due to her present anxiety, her cervical neck problems, or not having her medications. Patient reports going to the bar last night and took her medications with her in her purse. She states she walked away briefly and when she came back the medications were gone. Patient is reporting high anxiety at the current moment. Denies headaches, dizziness, blurred vision. Patient reports having water retention due to not having her water pill. Pt denies chest pain or SOB but states she is having difficulty breathing due to her anxiety. Related Data Home Medications Medication Instructions Recorded Confirmed alprazolam 1 mg tablet 1 mg PO TID 06/08/21 01/23/23 ergocalciferol (vitamin D2) 1,250 1,250 mcg PO DIRECTED 06/08/21 01/23/23 mcg (50,000 unit) capsule famotidine 20 mg tablet 20 mg PO BID 06/08/21 01/23/23 folic acid 1 mg tablet 1 mg PO DAILY 06/08/21 01/23/23 omeprazole 20 mg capsule,delayed 20 mg PO DAILY 06/08/21 01/23/23 release atenolol 25 mg tablet 12.5 mg PO DAILY 10/17/21 01/23/23 divalproex 125 mg tablet,delayed 125 mg PO HS 07/01/22 01/23/23 release potassium chloride 10 mEq 10 meq PO DAILY 07/01/22 01/23/23 tablet,extended release amoxicillin 875 mg-potassium tablet 02/01/23 clavulanate 125 mg tablet clindamycin HCl 300 mg capsule mg 02/01/23 hydrochlorothiazide 12.5 mg tablet mg 02/01/23 02/01/23 mupirocin 2 % topical ointment topical 02/01/23 pregabalin 75 mg capsule 75 mg PO DAILY radiculopathy 02/01/23 Allergies Allergy/AdvReac Type Severity Reaction Status Date / Time codeine Allergy Mild Nausea and Verified 02/01/23 10:18 Vomiting nitrofurantoin Allergy Mild Swelling Verified 02/01/23 10:18 [From Macrobid] Sulfa (Sulfonamide Allergy Mild Hives Verified 02/01/23 10:18 Antibiotics) vancomycin Allergy Mild Hives Verified 02/01/23 10:18 Review of Systems Review of Systems: CONSTITUTIONAL: Denies fever, chills, or sweats. Positive shakiness in general unwell feeling. EYES: Denies visual changes, redness, or discharge. ENT: Denies rhinorrhea, congestion, sore throat, or otalgia. CARDIOVASCULAR: Denies chest pain, palpitations, or edema. RESPIRATORY: Denies cough or dyspnea. GASTROINTESTINAL: Denies abdominal pain, nausea, vomiting, or diarrhea. GENITOURINARY: Denies dysuria or hematuria. SKIN: Denies rash or itching. MUSCULOSKELETAL: Positive upper back pain, joint pain of the left shoulder elbow and hands as well as the left lower leg, and generalized myalgia. NEUROLOGIC: Denies headache, positive numbness of the top of her head left arm and lower leg, denies weakness. PSYCHIATRIC: Positive anxiety, denies depression. [facility] Past Medical History Medical History Anxiety Asplenia Back pain GERD (gastroesophageal reflux disease) Heart palpitations Hypertension Leg pain, bilateral 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 Lumbosacral radiculopathy Vapes nicotine containing substance Surgical History Surgical History H/O splenectomy thrombocytopenia,reports has 2 pancreatic stents History of bladder suspension procedure Hx of cholecystectomy Previous section Social History Social History Smoking status: Current every day smoker Tobacco type: e-cigarettes/vaping Living arrangements: with family Gender identity (if verbalized by the patient): Female Comments Vital signs r
== END 2023-02-01 11:20 | disposition home or self-care (01) ==
PROVIDERS: Emergency Provider Nurse Practitioner Family; PCP Internal Medicine
DX: Z76.0 Encounter for issue of repeat prescription (principal); K21.9 Gastro-esophageal reflux disease without esophagitis; I10 Essential (primary) hypertension; F41.9 Anxiety disorder, unspecified
CPT/HCPCS: 99211; 99213; G0463

== ENCOUNTER 2023-02-11 13:11 | Emergency (ER) | payer OTHER, SELFPAY ==
--- NOTE | 2023-02-11 13:15 | ED.EAR ---
HPI - Ear Problem General Chief complaint: Ear Stated complaint: left ear pain Time Seen by Provider: 02/11/23 14:10 Source: patient and RN notes reviewed Mode of arrival: ambulatory Limitations: no limitations History of Present Illness HPI Narrative: 42-year-old female presents concern for left ear pain. She reports feeling of fullness, fluid in the ear. She is currently taking an antibiotic for a staph infection. She denies taking any [id number] medications for her ear pain. She denies drainage from the ear MD Complaint: ear pain Related Data Home Medications Medication Instructions Recorded Confirmed alprazolam 1 mg tablet 1 mg PO TID 06/08/21 01/23/23 ergocalciferol (vitamin D2) 1,250 1,250 mcg PO DIRECTED 06/08/21 01/23/23 mcg (50,000 unit) capsule famotidine 20 mg tablet 20 mg PO BID 06/08/21 01/23/23 folic acid 1 mg tablet 1 mg PO DAILY 06/08/21 01/23/23 omeprazole 20 mg capsule,delayed 20 mg PO DAILY 06/08/21 01/23/23 release potassium chloride 10 mEq 10 meq PO DAILY 07/01/22 01/23/23 tablet,extended release clindamycin HCl 300 mg capsule 300 mg PO DAILY 02/01/23 02/11/23 pregabalin 75 mg capsule 75 mg PO DAILY radiculopathy 02/01/23 ferrous gluconate 324 mg (38 mg mg 02/11/23 iron) tablet hydrochlorothiazide 25 mg tablet mg 02/11/23 naproxen 500 mg tablet mg 02/11/23 Allergies Allergy/AdvReac Type Severity Reaction Status Date / Time codeine Allergy Mild Nausea and Verified 02/11/23 13:19 Vomiting nitrofurantoin Allergy Mild Swelling Verified 02/11/23 13:19 [From Macrobid] Sulfa (Sulfonamide Allergy Mild Hives Verified 02/11/23 13:19 Antibiotics) vancomycin Allergy Mild Hives Verified 02/11/23 13:19 Review of Systems Review of Systems: CONSTITUTIONAL: Denies malaise, chills, sweats, or fever. EYES: Denies visual changes, redness, or discharge. ENT: Reports left ear pain and fullness CARDIOVASCULAR: Denies chest pain, palpitations, or edema. RESPIRATORY: Denies cough. Denies dyspnea. GASTROINTESTINAL: Denies abdominal pain, nausea, vomiting, diarrhea SKIN: Denies rash or itching. MUSCULOSKELETAL: Denies myalgia. NEUROLOGIC: Denies headache. 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, bilateral detention (current) use 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 Lumbosacral radiculopathy Vapes nicotine containing substance Surgical History Surgical History H/O splenectomy thrombocytopenia,reports has 2 pancreatic stents History of bladder suspension procedure Hx of cholecystectomy Previous section Social History Social History Smoking status: Current every day smoker Tobacco type: e-cigarettes/vaping Living arrangements: with family Gender identity (if verbalized by the patient): Female Comments At time of signature, agree with nursing past medical, surgical, social and family history. There is no relevant family history pertinent to the presenting complaint Exam Narrative: GENERAL: Well-appearing, well-nourished, and in no acute distress. HEAD: Normocephalic EYES: PERRLA, conjunctivae clear ENT: Nares clear. Mucous membranes moist. Left TM pearly streeter with dull light reflex, right TM a sharp might reflux; no tragal tenderness. NECK: Supple. No lymphadenopathy CHEST: Clear to auscultation, breath sounds equal. No wheezing, rhonchi, rales, or stridor. No respiratory distress, speaks in full sentences. HEART: Regular rate and rhythm. No murmur heard. SKIN: Warm, dry, no rash. NEURO: Alert and oriented x3. PSYCH: Normal mood and affect Course Course Emergency Course: Patient is aware of diagnosis, understands and agrees to treatment plan. Anticipatory
[2023-02-11 13:27] VITALS: BP 126/82; PULSE 66; RESP 16; TEMP 37; O2SAT 100
== END 2023-02-11 14:34 | disposition home or self-care (01) ==
PROVIDERS: Emergency Provider Nurse Practitioner; PCP Internal Medicine
DX: H73.892 Other specified disorders of tympanic membrane, left ear (principal); K21.9 Gastro-esophageal reflux disease without esophagitis; I10 Essential (primary) hypertension; F41.9 Anxiety disorder, unspecified
CPT/HCPCS: 99213; G0463

== ENCOUNTER 2023-02-17 11:15 | Outpatient (RCR) | payer OTHER, SELFPAY ==
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
--- NOTE | 2022-12-19 11:12 | OPREHPOC ---
Outpatient Therapy Plan of Care This is a Multidisciplinary Plan of Care that may contain components documented by all disciplines (PT, OT, and ST.) PT Problem 1 PT Problem #1 Knowledge Deficit PT Goal 1 Goal Independent with a HEP addressing strength, ROM and postural awareness Target Visit 2 PT Problem 2 PT Problem #2 Pain PT Goal 1 Goal Pt. will report pain levels at 5/10 at worst and demonsrate 20% improvement in NDI score. Target Visit 10 PT Problem 3 PT Problem #3 Impaired Functional Mobil PT Goal 1 Goal -Pt. will demonstrate safe mechanics with lifting from floor to waist with 10-20# object. -Pt. will report being able to sleep through the night without pain disturbance. PT Problem 4 PT Problem #4 Impaired Range of Motion PT Goal 1 Goal Pt. will increase cervical rotation to 85 degrees to the right and cervical lateral flexion to 40 degrees to the right for improved visual field. Target Visit 10 PT Problem 5 PT Problem #5 Impaired Strength PT Goal 1 Goal Pt. will present with 5/5 hip abduction strength, 4/5 lower abdominal and oblique abdominal strength -Increase strength to allow for improve postural awareness in standing. Target Visit 10
--- NOTE | 2022-12-24 13:08 | PCPTNOTE ---
pt was 15 minutes late for appt today, reports she was delayed due to road construction.
--- NOTE | 2023-01-07 12:57 | PCPTNOTE ---
Cancelled scheduled appointment this date due to showing up with an active staff infection. Advised Pt to be on medication for 24hrs prior to returning to therapy. Also advised Pt to call MD to discuss therapy and approve use of electrical stimulation as treatment even though Pt has an active staff infection. Physical therapist informed.
--- NOTE | 2023-01-16 11:01 | PCPTNOTE ---
Pt. did not show for appointment on 01/16/23.
--- NOTE | 2023-01-23 11:41 | PTOPPROG ---
Assessment and note entered by Javier Atkinson, PT Evaluation Information Assessment Status Progress Diagnosis neck pain and low back pain Onset 09/14/21 Subjective Information Reports that since starting therapy she has not seen consistent improvement to this point. Pain is still consistently high and she has not been able to sleep well at night. She has been going through a custody hoang for her son so she is trying to not take pain medication even as prescribed just in case. Pain is mostly on her left side today and has historically been a little more present on her right side. Has pain at end range of all cervical motions. Assessment PT Clinical Summary Patient continues to present with significant debilitating pain in neck. Objectively she has shown improvement but subjective symptoms continue to limit quality of life and sleep. Patient presented very fatigued this session. Would continue to benefit from skilled therapy to address deficits and emphasize pain relief with integration of Dry Needling. Plan of Care Interventions Electrical Stimulation,Hot Pack/Cold Pack,Manual Therapy,Neuro Re-education,Patient/Caregiver Educati,Therapeutic Activities,Therapeutic Exercise PT Services Indicated Yes Treatment Frequency and 2x/week x 10 visits Duration These treatments will address the objective and functional deficits as defined above. The patient will be advanced safely and appropriately in order for the patient to progress towards his/her prior level of function. Additional exercises will be introduced and as well as a comprehensive home exercise program upon discharge, if needed, ?to ensure carryover of functional gains achieved in the clinic. This treatment plan has been reviewed and agreement upon by the patient.
--- NOTE | 2023-02-04 16:30 | PCPTNOTE ---
Patient did not show up for scheduled appointment this date. Called Pt, she apologized because she forgot to call and cancel appointment due to not having her script yet to aid with pain. This is Pt's second N/S.
--- NOTE | 2023-02-11 13:14 | PCPTNOTE ---
Pt NS visit today.
--- NOTE | 2023-02-13 11:56 | PCPTNOTE ---
Patient no show for todays appointment.
--- NOTE | 2023-03-03 09:46 | PTOPDC ---
Assessment and note entered by Melissa Baltazar, PT Discharge Information Assessment Status Discharge - Pt Not Present Diagnosis neck pain and low back pain Onset 09/14/21 Assessment PT Clinical Summary PHYSICAL THERAPY DISCHARGE Margarita has received 8 PT sessions, from December 19 to today. She called and canceled 1 and did not show for 4 appointments. Then, she did not show for today's reevaluation, therefore she will be discharged from PT services. The goals were not addressed. Plan of Care PT Services Indicated No
== END 2023-03-03 11:54 | disposition home or self-care (01) ==
LOC: ANHPT 11:15
PROVIDERS: PCP Internal Medicine; Visit Provider Anesthesiology Pain Medicine
DX: M54.2 Cervicalgia (principal); M54.17 Radiculopathy, lumbosacral region; M54.12 Radiculopathy, cervical region; M54.9 Dorsalgia, unspecified
CPT/HCPCS: 97014; 97110; 97140; 97161; 99199; 99212; G0283; G0463

== ENCOUNTER 2023-03-07 12:23 | Emergency (ER) | payer OTHER, SELFPAY ==
[2023-03-07 12:39] VITALS: BP 123/81; PULSE 69; RESP 16; TEMP 36.5; O2SAT 100
--- NOTE | 2023-03-07 13:42 | ED.URI ---
HPI - URI/Sore Throat General Chief Complaint: Skin/Abscess/Foreign Body Stated Complaint: Sore Throat/Multiple Complaints Time Seen by Provider: 03/07/23 13:27 Source: patient and RN notes reviewed Mode of arrival: ambulatory Limitations: no limitations History of Present Illness HPI Narrative: Patient presents today complaining of sore throat, headache, rhinorrhea since yesterday with subjective fever today. Denies cough congestion. She has been taking Tylenol and ibuprofen without much relief. She also reports some scabs to her right upper buttock area that have been there for, ?a while?. States she has had something similar in the past related to staph infection. Related Data Home Medications Medication Instructions Recorded Confirmed alprazolam 1 mg tablet 1 mg PO TID 06/08/21 03/07/23 ergocalciferol (vitamin D2) 1,250 1,250 mcg PO DIRECTED 06/08/21 03/07/23 mcg (50,000 unit) capsule omeprazole 20 mg capsule,delayed 20 mg PO DAILY 06/08/21 03/07/23 release potassium chloride 10 mEq 20 meq PO DAILY 07/01/22 03/07/23 tablet,extended release pregabalin 75 mg capsule 75 mg PO DAILY radiculopathy 02/01/23 03/07/23 ferrous gluconate 324 mg (38 mg 324 mg PO DAILY 02/11/23 03/07/23 iron) tablet naproxen 500 mg tablet 500 mg PO DAILY 02/11/23 03/07/23 furosemide 20 mg tablet mg 03/07/23 03/07/23 midodrine 5 mg tablet mg 03/07/23 Allergies Allergy/AdvReac Type Severity Reaction Status Date / Time codeine Allergy Mild Nausea and Verified 03/07/23 12:56 Vomiting nitrofurantoin Allergy Mild Swelling Verified 03/07/23 12:56 [From Macrobid] Sulfa (Sulfonamide Allergy Mild Hives Verified 03/07/23 12:56 Antibiotics) vancomycin Allergy Mild Hives Verified 03/07/23 12:56 Review of Systems Review of Systems: CONSTITUTIONAL: Denies body aches, fever, chills, or sweats. EYES: Denies visual changes, redness, or discharge. ENT: Denies congestion, or otalgia.+ rhinorrhea, sore throat CARDIOVASCULAR: Denies chest pain, palpitations, or edema. RESPIRATORY: Denies cough or dyspnea. GASTROINTESTINAL: Denies abdominal pain, nausea, vomiting, or diarrhea. GENITOURINARY: Denies dysuria or hematuria. SKIN: Denies rash, itching, or wounds.+ scabs to right buttock MUSCULOSKELETAL: Denies back pain, joint pain, or myalgia. NEUROLOGIC: Denies numbness, tingling, or weakness.+ headache PSYCH: Denies depression or anxiety. 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 Please see nursing chart for further information. There is no relevant family history pertinent to the presenting complaint Exam Narrative: GENERAL: Mildly ill-appearing, well-nourished, and in no acute distress. HEAD: Normocephalic, atraumatic. EYES: EOMI. No redness or drainage. Conjunctivae normal. ENT: Mucous membranes pink and moist. Nares congested. No rhinorrhea. TMs normal bilaterally. Throat normal. Uvula midline. NECK: Normal AROM. Supple. No lymphadenopathy. CHEST: No respiratory distress. Clear to auscultation. HEART: Regular rate and rhythm
== END 2023-03-07 13:58 | disposition home or self-care (01) ==
PROVIDERS: Emergency Provider Nurse Practitioner; PCP Internal Medicine
DX: L98.9 Disorder of the skin and subcutaneous tissue, unspecified (principal); J06.9 Acute upper respiratory infection, unspecified; I10 Essential (primary) hypertension; F17.290 Nicotine dependence, other tobacco product, uncomplicated; Z79.899 Other long term (current) drug therapy; Z79.1 Long term (current) use of non-steroidal anti-inflammatories (NSAID)
CPT/HCPCS: 87081; 87804; 87880; 99213; G0463

== ENCOUNTER 2023-03-22 10:53 | Emergency (ER) | payer OTHER, SELFPAY ==
[2023-03-22 11:15] VITALS: BP 110/73; PULSE 86; RESP 16; TEMP 36.9; O2SAT 100
--- NOTE | 2023-03-22 11:26 | ED.URI ---
HPI - URI/Sore Throat General Chief Complaint: Upper Respiratory Infection Stated Complaint: Sore Throat/Eyes Irritation Time Seen by Provider: 03/22/23 11:26 Source: patient and RN notes reviewed Mode of arrival: ambulatory Limitations: no limitations History of Present Illness HPI Narrative: 42-year-old female presents with concern for 2 day history of sore throat, hoarse voice, runny nose, nasal congestion, sinus pain, eye drainage. She reports her child has strep throat. MD elicited complaint: sore throat and sinus pain Related Data Home Medications Medication Instructions Recorded Confirmed alprazolam 1 mg tablet 1 mg PO TID 06/08/21 03/07/23 ergocalciferol (vitamin D2) 1,250 1,250 mcg PO DIRECTED 06/08/21 03/07/23 mcg (50,000 unit) capsule omeprazole 20 mg capsule,delayed 20 mg PO DAILY 06/08/21 03/07/23 release potassium chloride 10 mEq 20 meq PO DAILY 07/01/22 03/07/23 tablet,extended release ferrous gluconate 324 mg (38 mg 324 mg PO DAILY 02/11/23 03/07/23 iron) tablet naproxen 500 mg tablet 500 mg PO DAILY 02/11/23 03/07/23 furosemide 20 mg tablet mg 03/07/23 03/07/23 midodrine 5 mg tablet mg 03/07/23 Allergies Allergy/AdvReac Type Severity Reaction Status Date / Time codeine Allergy Mild Nausea and Verified 03/22/23 11:17 Vomiting nitrofurantoin Allergy Mild Swelling Verified 03/22/23 11:17 [From Macrobid] Sulfa (Sulfonamide Allergy Mild Hives Verified 03/22/23 11:17 Antibiotics) vancomycin Allergy Mild Hives Verified 03/22/23 11:17 Review of Systems Review of Systems: CONSTITUTIONAL: Reports malaise. Denies fever. EYES: Denies visual changes, redness, or discharge. ENT: Reports rhinorrhea, congestion, sinus pain, and sore throat. CARDIOVASCULAR: Denies chest pain, palpitations, or edema. RESPIRATORY: Denies cough. Denies dyspnea. GASTROINTESTINAL: Denies abdominal pain, nausea, vomiting, diarrhea SKIN: Denies rash or itching. MUSCULOSKELETAL: Denies myalgia. NEUROLOGIC: Reports headache. 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, bilateral longterm (current) use 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 Lumbosacral radiculopathy Vapes nicotine containing substance Surgical History Surgical History H/O splenectomy thrombocytopenia,reports has 2 pancreatic stents History of bladder suspension procedure Hx of cholecystectomy Previous section Social History Social History Smoking status: Current every day smoker Tobacco type: e-cigarettes/vaping Living arrangements: with family Gender identity (if verbalized by the patient): Female Comments At time of signature, agree with nursing past medical, surgical, social and family history. There is no relevant family history pertinent to the presenting complaint Exam Narrative: GENERAL: Nontoxic-appearing, well-nourished, and in no acute distress. HEAD: Normocephalic EYES: PERRLA, conjunctivae clear ENT: Nares clear, turbinates edematous and erythematous. Mucous membranes moist. TM pearly streeter with sharp light reflex bilaterally; no tragal tenderness. Oropharynx erythematous without lesions. Tonsils not enlarged and without exudate, no drooling, no hoarseness, no trismus, uvula midline. NECK: Supple. No lymphadenopathy CHEST: Clear to auscultation, breath sounds equal. No wheezing, rhonchi, rales, or stridor. No respiratory distress, speaks in full sentences. HEART: Regular rate and rhythm. No murmur heard. SKIN: Warm, dry, no rash. NEURO: Alert and oriented x3. PSYCH: Normal mood and affect Course Course Emergency Course: Patient is aware of diagnosis, understands and agrees to treatment plan. Raymundo
== END 2023-03-22 12:20 | disposition home or self-care (01) ==
PROVIDERS: Emergency Provider Nurse Practitioner; PCP Internal Medicine
DX: J06.9 Acute upper respiratory infection, unspecified (principal); Z20.822 Contact with and (suspected) exposure to COVID-19; F17.290 Nicotine dependence, other tobacco product, uncomplicated; K21.9 Gastro-esophageal reflux disease without esophagitis; I10 Essential (primary) hypertension; F41.9 Anxiety disorder, unspecified
CPT/HCPCS: 87081; 87426; 87804; 87880; 99213; C9803; G0463

== ENCOUNTER 2023-03-31 00:37 | Day surgery (SDC) | payer OTHER, SELFPAY ==
[2023-03-25 09:23] VITALS: BMI 24.5
--- NOTE | 2023-03-25 09:37 | PC.NURSE ---
Report to the Outpatient Waiting Room, entrance under the green pavilion located off [facility], at time __1445__ on date _03/31/23_. Planned Procedure Time: ___1545 . Time changes happen often and if your time is changed the preop area will call you the afternoon before. - You and your visitor will be asked to self-screen and do not enter if you have any COVID symptoms. - A mask is optional within the hospital at this time. Patients may have clear liquids (water, carbonated beverages, clear teas, apple juice) until hours prior to surgery with a maximum of 20 ounces. - No food from midnight until time of surgery - Infants may have breast milk until 4 hours before surgery, infant formula 6 hours prior to surgery. - Children will be allowed to drink immediately following surgery. If applicable, please bring a bottle or sippy cup to assist with drinking. Juice, water, soda, and popsicles are readily available. For infants on formula, please bring formula the day of surgery. Pacifiers are allowed. Take the following medications with a SIP of water the morning of surgery: ____MORNING MEDICATIONS DO NOT STOP ANY OF YOUR OTHER PRESCRIPTION MEDICATIONS PRIOR TO SURGERY ?EXCEPT THE FOLLOWING Medications to discontinue per physician NONE Date to take last dose Please no make-up, nail latvian, hairspray, perfume, deodorant, or body powder the day of surgery. No jewelry (including any body piercings) or valuables the day of surgery, leave them at home. Please take a shower or bath the night before, or the morning of, surgery with an antibacterial soap. Wear comfortable, loose fitting clothing. Children are encouraged to wear pajamas. - Jewelry must be removed prior to entering the operating room. Rings and piercings that are not removed may be cut off. - The hospital will not accept responsibility for valuables. - Please leave all valuables, including medications, at home the day of surgery. If you are going home after surgery, a licensed salesperson driver must drive you home. - NO public transportation without another adult if you receive anesthesia. - We recommend that an adult stay with you for 24 hours following discharge. - We also recommend that you do not drive, make important decision, drink alcoholic beverages, or take any drugs that were not prescribed by your health care provider for at least 24 hours after your discharge time. For Pediatric surgeries, we recommend two adults accompany the child home. Follow any additional instructions given to you from your surgeon. If you or anyone in your household have experienced Covid symptoms in the past week, please notify your surgeon or the nurse liaison at the phone number below for possible testing. Telephone instructions given to __PATIENT___and asked if any additional questions and then verbalized understanding. Patient advised to call surgeon office or pre surgery nurse liaison [phone] if any additional questions.
--- NOTE | ~2023-03-31 | XR_ITS ---
EXAMINATION: XR fluoroscopy no charge INDICATION: Steroid injection TECHNIQUE: Three intraoperative fluoroscopic images are submitted for review. Total fluoroscopic time was 21 seconds. COMPARISON: None available FINDINGS: Fluoroscopic image demonstrates a posterior needle at the level of the C6 vertebral body. P lease refer to procedure note for full details. IMPRESSION: 1. Please refer to procedure note for full details. Reviewed, dictated and finalized at location [facility]
--- NOTE | 2023-03-31 10:50 | PM.HPGS ---
History of Present Illness History of Present Illness Consent: Risks, benefits, and alternatives have been discussed and questions answered. Patient agrees to proceed with procedure. Chief complaint: Radiculopathy Cervical Region Narrative: Margarita Anaya is a 42 year old female with chronic , disabling and recalcitrant right upper extremity and neck pain consistent with cervical radiculopathy confirmed by appropriate findings and MRI. She has failed to respond to conservative therapies to include physical therapy, medications, opioid and nonopioid medications, oral and topical analgesics, time, rest and activity/behavior modification. presents for cervical interlaminar epidural steroid injection from the right for approach at the C6-7 level. she denies any interval change in her medical history although she has been to the emergency department several times for recurrent upper respiratory infections, likely viral. Symptoms have resolved. Review of Systems Review of Systems: patient denies any interval change in her cardiopulmonary status, presence of new neurologic deficit, development of any new cough/ cold or flu-like symptoms, denies fevers /chills /night sweats, denies dysuria or diarrhea, increasing shortness of breath or dyspnea on exertion, increasing peripheral edema or activity limitations related to other medical conditions than pain since last seen in November of 2022. 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 Lumbosacral radiculopathy Vapes nicotine containing substance Surgical History Surgical History H/O splenectomy thrombocytopenia,reports has 2 pancreatic stents History of bladder suspension procedure Hx of cholecystectomy Previous section Social History Social History Smoking packs per day: 1 Smoking cigarettes per day: 20.0 Years smoked: 20 Smoking pack-years: 20.00 Smoking status: Former smoker Tobacco type: cigarettes and e-cigarettes/vaping Additional smoking assessment comments: 1.5 YR VAPING Alcohol intake: former Substance use: former Substance use type: prescription drug Other substance usage details: FENTANYL Last use: 2008 Living arrangements: alone Gender identity (if verbalized by the patient): Female Meds Home Medications and Allergies Home Medications Medication Instructions Recorded Confirmed Type alprazolam 1 mg tablet 1 mg PO TID 06/08/21 03/25/23 History ergocalciferol (vitamin D2) 1,250 1,250 mcg PO DIRECTED 06/08/21 03/25/23 History mcg (50,000 unit) capsule omeprazole 20 mg capsule,delayed 20 mg PO DAILY 06/08/21 03/25/23 History release potassium chloride 10 mEq 20 meq PO DAILY 07/01/22 03/25/23 History tablet,extended release divalproex 125 mg tablet,delayed 125 mg PO DAILY #14 tabs 02/01/23 03/25/23 Rx release folic acid 1 mg tablet 1 mg PO DAILY #30 tabs 02/01/23 03/25/23 Rx ferrous gluconate 324 mg (38 mg 324 mg PO DAILY 02/11/23 03/25/23 History iron) tablet naproxen 500 mg tablet 500 mg PO DAILY PRN Pain 02/11/23 03/25/23 History furosemide 20 mg tablet 20 mg PO DAILY 03/07/23 03/25/23 History midodrine 5 mg tablet 5 mg PO PRN PRN HYPOTESION 03/07/23 03/25/23 History pregabalin 75 mg capsule 75 mg PO Q12H radiculopathy 30 03/19/23 03/25/23 Rx days #60 caps famotidine 20 mg tablet 20 mg PO BID 03/25/23 03/25/23 History Allergies Allergy/AdvReac Type Severity Reaction Status Date / Time codeine Allergy Mild Nausea and Verified 03/22/23 11:17 Vomiting nitrofurantoin Allergy Mild Swelling Verified 03/22/23 11:17 [From Macrobid] Sul
--- NOTE | 2023-03-31 10:57 | WPDHPUPDATE1 ---
History and Physical Update Update Date/Time: 03/31/23 10:57 History and Physical has been reviewed, including an updated exam of the patient. There are NO changes in the patient's condition. Risks, benefits, and alternatives have been discussed and questions answered. Patient agrees to proceed with procedure.
[2023-03-31 15:41] VITALS: BP 121/71; PULSE 87; RESP 14; TEMP 36.9; O2SAT 100
--- NOTE | 2023-03-31 16:33 | W.PM.PROC2 ---
Procedure Note - Detailed Date of Procedure 03/31/23 Pre-op Diagnosis Radiculopathy Cervical Region Post-op Diagnosis Same Procedure Performed rightward C6-7 interlaminar epidural steroid injection under fluoroscopic guidance with contrast control. Surgeon Haim Moreno MD Anesthesia Local Description of Procedure INFORMED CONSENT: Risks, benefits and alternatives to the procedure were discussed in detail with the patient who expressed explicit understanding and consent to proceed. Patient was informed verbally and in written form regarding the risks associated with the procedure including the low risk of serious infection, bleeding/bruising, allergic reaction, nerve or organ injury, paralysis, procedural site pain or discomfort, worsening pain and/or mobility, failure to treat and/or disfigurement. The patient expressed explicit understanding and consent to proceed. All materials required for the procedure were available prior to procedure start. Site and side was marked prior to procedure and confirmed in the presence of the patient. PROCEDURE IN DETAIL: The patient was brought to the procedural suite and placed in the prone position. Patient's head was positioned and stabilized with a ProneView pillow or equivalent. Patient was made comfortable with use of pillows under the chest, hips and ankles. Skin overlying the injection site was prepared broadly with ChloraPrep applicator and draped in a sterile manner. Aseptic technique was employed throughout. The endplates of the vertebral body at the site of interest were aligned in the AP view. Slight caudad tilt and ipsilateral oblique angulation was utilized to optimize visualization of the targeted posterior intervertebral foramen at C6-7. Local anesthesia was established by infiltration with approximately 5 mL of 2% lidocaine via a 1-1/2 inch 27-gauge needle. A 20-gauge 4-inch Tuohy epidural needle was advanced intermittently until appropriate loss of resistance to air was identified via plastic loss of resistance syringe. Lateral view was used to confirm the appropriate positioning of the needle tip within the posterior epidural space. In the AP view, 2.0 mL of Omnipaque 300 contrast medium was injected after negative aspiration for CSF, blood or other bodily fluid, showing appropriate epidural spread of contrast without evidence of intravascular or intrathecal placement. After negative repeat aspiration for CSF, blood or other bodily fluid, A 4 mL solution containing 6 mg of betamethasone in sterile PF Normal Saline was injected after negative repeat aspiration. Appropriate spread of the injectate was confirmed with washout of previously injected contrast. No parasthesias were elicited. Needle was removed completely intact without difficulty. Images were saved and documented in the patient chart. Patient's skin was cleansed and sterile bandage applied. The patient tolerated the procedure well. The patient was transported to the recovery area in stable condition where they were observed for an appropriate amount of time prior to discharge, without evidence of complication. The patient was instructed to avoid excessive activity for the next 48 hours, including overhead work, reaching or extended device/computer usage. Showers only for 48 hours. They were instructed not to drive or operate heavy machinery for 24 hours. They are to monitor for severe headaches, fevers, chills, night sweats, erythema/swelling at the site or any other signs of infection, bleeding/bruising, bowel or bladder changes as well as new pain, weakness or numbness in the upper or lower extremity. Should they notice these changes, they are instructed to call our office immediately or report directly to the nearest Emergency Department if no answer or if after posted office hours. CONTRAST WASTED: 28mL Omnipaque 300. Complications None Condition Stable Disposition Same day [facility] Billing Surgery - Charge Forward: Surgery Billing
[2023-03-31 16:42] VITALS: BP 123/83; PULSE 63; RESP 14; O2SAT 100
[2023-03-31 16:50] VITALS: BP 149/91; PULSE 64; RESP 14; O2SAT 100
[2023-03-31] MEDS: LIDOCAINE HCL 1% LOCAL INJ 20 ML VIAL 5 ML INFILTRATE (16:53)
[2023-03-31] MEDS: BETAMETHASONE SODIUM PHOSPHATE PF INJ 6 MG/ML VIAL INFILTRATE (16:53)
[2023-03-31 16:56] VITALS: BP 135/81; PULSE 72; RESP 16; O2SAT 100
== END 2023-03-31 17:34 | disposition home or self-care (01) ==
PROVIDERS: PCP Internal Medicine; Visit Provider Anesthesiology Pain Medicine
PROC: (CPT 62321; principal; 2023-03-31 15:45)
DX: M54.12 Radiculopathy, cervical region (principal); F41.9 Anxiety disorder, unspecified; K21.9 Gastro-esophageal reflux disease without esophagitis; I10 Essential (primary) hypertension; Z79.1 Long term (current) use of non-steroidal anti-inflammatories (NSAID); Z90.49 Acquired absence of other specified parts of digestive tract; Z90.81 Acquired absence of spleen; Z87.891 Personal history of nicotine dependence
CPT/HCPCS: 62321; 99199

== ENCOUNTER 2023-04-30 10:31 | Outpatient (CLI) | payer OTHER, SELFPAY ==
--- NOTE | ~2023-04-30 | US_ITS ---
EXAMINATION: US venous doppler [facility] DATE: 04/30/2023 11:53 INDICATION: Lower limb pain and swelling TECHNIQUE: Grayscale ultrasound images without and with compression and Doppler ultrasound images of the bilateral lower extremity veins were obtained. COMPARISON: None. FINDINGS: The visualized portions of right common femoral vein, profunda (deep) femoral vein, femoral vein, pop liteal vein, posterior tibial veins, peroneal veins and greater saphenous vein outflow are patent. The visualized portions of left common femoral vein, profunda femoral vein, femoral vein, popliteal v ein, posterior tibial veins, peroneal veins and greater saphenous vein outflow are patent. IMPRESSION: 1. No deep venous thrombosis in either lower limb. Reviewed, dictated and finalized at location [facility] [employer]
== END 2023-04-30 10:32 | disposition home or self-care (01) ==
LOC: ANHIMG 10:34
PROVIDERS: PCP Internal Medicine; Visit Provider Internal Medicine
DX: R60.0 Localized edema (principal)
CPT/HCPCS: 93970

== ENCOUNTER 2023-05-23 08:04 | Emergency (ER) | payer OTHER, SELFPAY ==
--- NOTE | 2023-05-23 08:14 | ED.FEMALEGU ---
HPI - Female Genitourinary General Chief complaint: Urogenital-Female Stated complaint: urinary issue/passed kidney stone Sun Time Seen by Provider: 05/23/23 08:16 Source: patient Mode of arrival: ambulatory Limitations: no limitations History of Present Illness HPI Narrative: Margarita is a 42-year-old female patient presenting to the clinic today with complaints of possible UTI. She reports she is having burning with urination, frequency, and some low back pain. She states that this started after passing a kidney stone on Friday. She reports she does have a history of kidney stones and passes kidney stones frequently. She denies any fever but has had some chills. She denies any concern for sexually transmitted infections. Denies any vaginal discharge. Related Data Home Medications Medication Instructions Recorded Confirmed alprazolam 1 mg tablet 1 mg PO TID 06/08/21 05/23/23 ergocalciferol (vitamin D2) 1,250 1,250 mcg PO DIRECTED 06/08/21 05/23/23 mcg (50,000 unit) capsule omeprazole 20 mg capsule,delayed 20 mg PO DAILY 06/08/21 05/23/23 release potassium chloride 10 mEq 40 meq PO DAILY 07/01/22 05/23/23 tablet,extended release ferrous gluconate 324 mg (38 mg 324 mg PO DAILY 02/11/23 05/23/23 iron) tablet naproxen 500 mg tablet 500 mg PO DAILY PRN Pain 02/11/23 05/23/23 furosemide 20 mg tablet 20 mg PO DAILY 03/07/23 05/23/23 midodrine 5 mg tablet 5 mg PO PRN PRN HYPOTESION 03/07/23 05/23/23 famotidine 20 mg tablet 20 mg PO BID 03/25/23 05/23/23 pregabalin 150 mg capsule 150 mg PO BID 04/18/23 05/23/23 tizanidine 2 mg tablet 2 mg PO TID 04/18/23 05/23/23 tramadol 50 mg tablet See Rx Instructions .Route .COMPLEX 05/23/23 05/23/23 Allergies Allergy/AdvReac Type Severity Reaction Status Date / Time codeine Allergy Mild Nausea and Verified 05/23/23 08:11 Vomiting nitrofurantoin Allergy Mild Swelling Verified 05/23/23 08:11 [From Macrobid] Sulfa (Sulfonamide Allergy Mild Hives Verified 05/23/23 08:11 Antibiotics) vancomycin Allergy Mild Hives Verified 05/23/23 08:11 Review of Systems Review of Systems: Pertinent positives per HPI. Patient denies any fever, chills, rash, headache, visual changes, dizziness, cough, runny nose, sore throat, shortness of breath, chest pain, palpitations, nausea, vomiting, diarrhea, constipation, abdominal pain, or any urinary issues. 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 Lumbosacral radiculopathy Vapes nicotine containing substance Surgical History Surgical History H/O splenectomy thrombocytopenia,reports has 2 pancreatic stents History of bladder suspension procedure Hx of cholecystectomy Previous section Social History Social History Smoking packs per day: 1 Smoking cigarettes per day: 20.0 Years smoked: 20 Smoking pack-years: 20.00 Smoking status: Former smoker Tobacco type: cigarettes and e-cigarettes/vaping Additional smoking assessment comments: 1.5 YR VAPING Alcohol intake: former Substance use: former Substance use type: prescription drug Other substance usage details: FENTANYL Last use: 2008 Living arrangements: alone Gender identity (if verbalized by the patient): Female Comments At the time of my signature, I reviewed and agree with the nursing past medical, surgical, social, and family history. There is no relevant family history pertinent to the patient complaint. Exam Narrative: General: Well-developed, well nourished, in no apparent distress. Head: Normocephalic, atraumatic. Cardio: Regular rate and rhythm, s1 and s2 normal, no murmur appreciated. Resp: Clear to auscultation bilaterally, no rhonchi,
[2023-05-23 08:23] VITALS: BP 132/74; PULSE 63; RESP 16; TEMP 36.8; O2SAT 99
== END 2023-05-23 08:42 | disposition home or self-care (01) ==
PROVIDERS: Emergency Provider Nurse Practitioner Family
DX: N30.01 Acute cystitis with hematuria (principal); I10 Essential (primary) hypertension; Z79.899 Other long term (current) drug therapy; Z79.1 Long term (current) use of non-steroidal anti-inflammatories (NSAID); Z87.891 Personal history of nicotine dependence
CPT/HCPCS: 81003; 87077; 87086; 87088; 87186; 99213; G0463

== ENCOUNTER 2023-07-02 11:55 | Emergency (ER) | payer OTHER, SELFPAY ==
[2023-07-02 12:06] VITALS: BP 126/92; PULSE 81; RESP 16; TEMP 37.2; O2SAT 100
--- NOTE | 2023-07-02 12:53 | ED.URI ---
HPI - URI/Sore Throat General Chief Complaint: Upper Respiratory Infection Stated Complaint: Neck/Eyes Pain Time Seen by Provider: 07/02/23 12:44 Source: patient and RN notes reviewed Mode of arrival: ambulatory Limitations: no limitations History of Present Illness HPI Narrative: Patient presents today with a 4 day history of nasal congestion, postnasal drip, headache, left ear pain, chills. She also reports tenderness and swelling of the lymph node on the left side of her neck. Denies sore throat, fever, cough. No known sick contacts. She has been using ibuprofen, Zyrtec, and Flonase without much relief. Related Data Home Medications Medication Instructions Recorded Confirmed alprazolam 1 mg tablet 1 mg PO TID 06/08/21 07/02/23 ergocalciferol (vitamin D2) 1,250 1,250 mcg PO DIRECTED 06/08/21 07/02/23 mcg (50,000 unit) capsule omeprazole 20 mg capsule,delayed 20 mg PO DAILY 06/08/21 07/02/23 release potassium chloride 10 mEq 40 meq PO DAILY 07/01/22 07/02/23 tablet,extended release ferrous gluconate 324 mg (38 mg 324 mg PO DAILY 02/11/23 07/02/23 iron) tablet naproxen 500 mg tablet 500 mg PO DAILY PRN Pain 02/11/23 05/23/23 furosemide 20 mg tablet 20 mg PO DAILY 03/07/23 07/02/23 midodrine 5 mg tablet 5 mg PO PRN PRN HYPOTESION 03/07/23 07/02/23 famotidine 20 mg tablet 20 mg PO BID 03/25/23 07/02/23 pregabalin 150 mg capsule 150 mg PO BID 04/18/23 07/02/23 tizanidine 2 mg tablet 2 mg PO TID 04/18/23 07/02/23 tramadol 50 mg tablet See Rx Instructions .Route .COMPLEX 05/23/23 07/02/23 Allergies Allergy/AdvReac Type Severity Reaction Status Date / Time codeine Allergy Mild Nausea and Verified 07/02/23 12:05 Vomiting nitrofurantoin Allergy Mild Swelling Verified 07/02/23 12:05 [From Macrobid] Sulfa (Sulfonamide Allergy Mild Hives Verified 07/02/23 12:05 Antibiotics) vancomycin Allergy Mild Hives Verified 07/02/23 12:05 Review of Systems Review of Systems: CONSTITUTIONAL: Denies body aches, fever, or sweats.+ chills EYES: Denies visual changes, redness, or discharge. ENT: Denies rhinorrhea, sore throat.+ congestion, postnasal drip, ear pain, left neck pain CARDIOVASCULAR: Denies chest pain, palpitations, or edema. RESPIRATORY: Denies cough or dyspnea. GASTROINTESTINAL: Denies abdominal pain, nausea, vomiting, or diarrhea. GENITOURINARY: Denies dysuria or hematuria. SKIN: Denies rash, itching, or wounds. MUSCULOSKELETAL: Denies back pain, joint pain, or myalgia. NEUROLOGIC: Denies numbness, tingling, or weakness.+ headache PSYCH: Denies depression or anxiety. 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 Lumbosacral radiculopathy Vapes nicotine containing substance Surgical History Surgical History H/O splenectomy thrombocytopenia,reports has 2 pancreatic stents History of bladder suspension procedure Hx of cholecystectomy Previous section Social History Social History Smoking packs per day: 1 Smoking cigarettes per day: 20.0 Years smoked: 20 Smoking pack-years: 20.00 Smoking status: Former smoker Tobacco type: cigarettes and e-cigarettes/vaping Additional smoking assessment comments: 1.5 YR VAPING Alcohol intake: former Substance use: former Substance use type: prescription drug Other substance usage details: FENTANYL Last use: 2008 Living arrangements: alone Gender identity (if verbalized by the patient): Female Comments At time of signature, I have reviewed and agree with nursing past medical, surgical, social and family history unless otherwise noted. Please see nursing chart for further information. There is no relevant family history pertinen
== END 2023-07-02 13:05 | disposition home or self-care (01) ==
PROVIDERS: Emergency Provider Nurse Practitioner; PCP Internal Medicine
DX: J06.9 Acute upper respiratory infection, unspecified (principal); F17.290 Nicotine dependence, other tobacco product, uncomplicated; K21.9 Gastro-esophageal reflux disease without esophagitis; I10 Essential (primary) hypertension; F41.9 Anxiety disorder, unspecified
CPT/HCPCS: 99213; G0463

== ENCOUNTER 2023-07-28 11:27 | Emergency (ER) | payer OTHER, SELFPAY ==
--- NOTE | ~2023-07-28 | XR_ITS ---
EXAMINATION: XR abdomen/kub 1V DATE: 07/28/2023 12:07 INDICATION: Flank pain. Nephrolithiasis. TECHNIQUE: A supine view of the abdomen on 2 radiographs was obtained. COMPARISON: None. FINDINGS: Cholecystectomy clips in right upper quadrant. There are few round calcifications in the pelvis with appearance and location most consistent with phleboliths. No other suspicious calcifications in the a bdomen or pelvis to suggest urolithiasis. Normal bowel gas pattern. Mild to moderate lower lumbar spo ndylosis. IMPRESSION: 1. Several small round calcifications in the pelvis and favor phleboliths over urolithiasis. Reviewed, dictated and finalized at location B.
--- NOTE | 2023-07-28 11:34 | ED.FEMALEGU ---
HPI - Female Genitourinary General Chief complaint: Urogenital-Female Stated complaint: passed a kidney stone,now spasm,fever Time Seen by Provider: 07/28/23 11:46 Source: patient and RN notes reviewed Mode of arrival: ambulatory Limitations: no limitations History of Present Illness HPI Narrative: 42-year-old female presents with concern for hematuria, urethral spasming, flank pain, fever, body aches, chills. Reports she passed a stone on Friday and has been having hematuria and pain since then. She has taken [id number] urine pain medication. MD elicited complaint: flank pain Related Data Home Medications Medication Instructions Recorded Confirmed alprazolam 1 mg tablet 1 mg PO TID 06/08/21 07/28/23 ergocalciferol (vitamin D2) 1,250 1,250 mcg PO DIRECTED 06/08/21 07/28/23 mcg (50,000 unit) capsule omeprazole 20 mg capsule,delayed 20 mg PO DAILY 06/08/21 07/28/23 release potassium chloride 10 mEq 40 meq PO DAILY 07/01/22 07/28/23 tablet,extended release ferrous gluconate 324 mg (38 mg 324 mg PO DAILY 02/11/23 07/28/23 iron) tablet naproxen 500 mg tablet 500 mg PO DAILY PRN Pain 02/11/23 07/28/23 furosemide 20 mg tablet 20 mg PO DAILY 03/07/23 07/28/23 midodrine 5 mg tablet 5 mg PO PRN PRN HYPOTESION 03/07/23 07/28/23 famotidine 20 mg tablet 20 mg PO BID 03/25/23 07/28/23 pregabalin 150 mg capsule 150 mg PO BID 04/18/23 07/28/23 tizanidine 2 mg tablet 2 mg PO TID 04/18/23 07/28/23 tramadol 50 mg tablet See Rx Instructions .Route .COMPLEX 05/23/23 07/28/23 Allergies Allergy/AdvReac Type Severity Reaction Status Date / Time codeine Allergy Mild Nausea and Verified 07/28/23 11:38 Vomiting nitrofurantoin Allergy Mild Swelling Verified 07/28/23 11:38 [From Macrobid] Sulfa (Sulfonamide Allergy Mild Hives Verified 07/28/23 11:38 Antibiotics) vancomycin Allergy Mild Hives Verified 07/28/23 11:38 Review of Systems Review of Systems: CONSTITUTIONAL: Reports malaise, fever. CARDIOVASCULAR: Denies chest pain, palpitations, or edema. RESPIRATORY: Denies cough or dyspnea. GASTROINTESTINAL: Denies abdominal pain, nausea, vomiting, diarrhea GENITOURINARY: Reports dysuria, bladder spasms, flank pain, hematuria. SKIN: Denies rash or itching. MUSCULOSKELETAL: Reports back pain, myalgia. 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 Lumbosacral radiculopathy Vapes nicotine containing substance Surgical History Surgical History H/O splenectomy thrombocytopenia,reports has 2 pancreatic stents History of bladder suspension procedure Hx of cholecystectomy Previous section Social History Social History Smoking packs per day: 1 Smoking cigarettes per day: 20.0 Years smoked: 20 Smoking pack-years: 20.00 Smoking status: Former smoker Tobacco type: cigarettes and e-cigarettes/vaping Additional smoking assessment comments: 1.5 YR VAPING Alcohol intake: former Substance use: former Substance use type: prescription drug Other substance usage details: FENTANYL Last use: 2008 Living arrangements: alone Gender identity (if verbalized by the patient): Female Comments At time of signature, agree with nursing past medical, surgical, social and family history. There is no relevant family history pertinent to the presenting complaint Exam Narrative: GENERAL: Well-appearing, well-nourished, and in no acute distress. HEAD: Normocephalic. EYES: PERRLA, conjunctivae clear. NECK: Supple. No lymphadenopathy CHEST: Clear to auscultation. No respiratory distress. HEART: Regular rate and rhythm. ABDOMEN:
[2023-07-28 11:36] VITALS: BP 167/86; PULSE 77; RESP 14; TEMP 36.9; O2SAT 100
== END 2023-07-28 12:27 | disposition short-term general hospital (02) ==
PROVIDERS: Emergency Provider Nurse Practitioner; PCP Internal Medicine
DX: R31.9 Hematuria, unspecified (principal); F41.9 Anxiety disorder, unspecified; K21.9 Gastro-esophageal reflux disease without esophagitis; I10 Essential (primary) hypertension; F17.290 Nicotine dependence, other tobacco product, uncomplicated
CPT/HCPCS: 74018; 81003; 99213; G0463

== ENCOUNTER 2023-07-28 12:48 | Emergency (ER) | payer OTHER, SELFPAY ==
--- NOTE | ~2023-07-28 | CT_ITS ---
EXAMINATION: CT abdomen pelvis wo con DATE: 07/28/2023 13:39 INDICATION: Left flank pain. TECHNIQUE: Computed tomography (CT) of the abdomen and pelvis was performed without intravenous contr ast. Automated exposure control and iterative reconstruction technique were employed. The dose-length product was 295.55 mGy-cm. COMPARISON: CT abdomen and pelvis 06/24/2013 FINDINGS: The visualized portions of the lung bases demonstrate mild atelectasis. No pleural effusion . The heart size is normal. No pericardial effusion. The liver is normal. There are changes of cholec ystectomy. There are changes of splenectomy. There is splenosis in left upper quadrant. The pancreas, adrenal glands, and kidneys are normal. There is no urolithiasis. There is physiologic fluid in the pelvis. There are no dilated loops of bowel. The appendix is normal. There are no pathologically enla rged lymph nodes. There is mild thoracic and lumbar spondylosis. IMPRESSION: 1. No urolithiasis. Reviewed, dictated and finalized at location A. IMPRESSION: 1. No urolithiasis.
[2023-07-28 12:55] VITALS: BP 159/82; PULSE 78; RESP 12; TEMP 36.8; O2SAT 100
[2023-07-28 13:38] LABS: Basophils Absolute Auto 0.1 K/mm3 (0.0-0.1); Eosinophils Absolute Auto 0.6 K/mm3 (0-0.3); Eosinophils Percent Auto 5.3 % (0-4.4); Hematocrit 39.7 % (37.0-47.0); Hemoglobin 13.1 g/dL (12.0-15.0); Immature Granulocyte Absolute 0.02 K/mm3 (0.00-0.031); Immature Granulocyte Percent A 0.2 % (0-0.5); Lymphocytes Absolute Auto 3.51 K/mm3 (0.9-3.2); Lymphocytes Percent Auto 32.7 % (18.3-44.2); Mean Corpuscular Hemoglobin 32.6 pg (26-34); Mean Corpuscular Volume 98.8 fl (80-100); Mean Platelet Volume 9.4 fl (7.4-10.4); Monocytes Absolute Auto 0.9 K/mm3 (0.1-0.6); Monocytes Percent Auto 8.8 % (2.6-8.5); Neutrophils Absolute Auto 5.6 K/mm3 (1.3-6.7); Platelet Count Result 448 k/mm3 (150-375); Red Blood Count 4.02 M/mm3 (4.2-5.4); Red Cell Distribution Width 14.7 % (11.5-14.5); White Blood Count 10.7 K/mm3 (4.5-10.0)
[2023-07-28 13:51] LABS: Lactic Acid Reflex 0.8 mmol/L (0.7-2.0)
[2023-07-28 13:53] VITALS: BP 147/78; PULSE 62; RESP 18; O2SAT 100
[2023-07-28 13:53] LABS: Alanine Aminotransferase 19 U/L (6-35); Albumin Level 4.9 g/dL (3.5-5.1); Alkaline Phosphatase 66 U/L (38-126); Anion Gap 9 mmol/L (4-12); Aspartate Amino Transferase 29 U/L (14-36); Bilirubin,Total 0.8 mg/dL (0.2-1.3); Blood Urea Nitrogen 12 mg/dL (7-17); Calcium 9.9 mg/dL (8.4-10.2); Carbon Dioxide 26 mmol/L (22-30); Chloride 106 mmol/L (98-107); Estimated CRCL calculation 78 ml/min; Estimated Glomerular Filt Rate > 60; Glucose 81 mg/dL (65-110); Potassium 3.6 mmol/L (3.4-5.0); Sodium 141 mmol/L (137-145)
[2023-07-28] MEDS: SODIUM CHLORIDE 0.9% IV 1,000 ML 999 ML IV CONT (13:54)
[2023-07-28] MEDS: ONDANSETRON INJ 4 MG/2 ML VIAL IV PUSH (13:54)
[2023-07-28] MEDS: MORPHINE SULFATE (*CRX) 4 MG/ML INJ IV PUSH (13:54)
[2023-07-28 14:01] LABS: Appearance Urine Clear (Clear); Bilirubin Urine Negative (Negative); Blood Urine Negative (Negative); Color Urine Dark Yellow (Yellow); Glucose Urine UA Negative (Negative); Ketones Urine Negative (Negative); Leukocyte Esterase Ur Negative LEU/UL (Negative); Need Manual Microscopic Need Manual; Nitrate Urine Positive (Negative); Non Pathogenic Casts 0-2; Protein Urine Negative (Negative); RBC Urine 0-2 /hpf (0-2); Specific Grav Ur 1.014 (1.001-1.035); Squamous Epithelial Cell Urine Occasional /hpf (Few); WBC Urine 0-5 /hpf (0-3); pH Urine 6.5 (5.0-9.0)
[2023-07-28 14:02] LABS: Bacteria Urine 1+ /hpf
[2023-07-28 14:06] LABS: Add Urine Microscopic? YES
[2023-07-28 14:36] VITALS: BP 138/82; PULSE 67; RESP 18; O2SAT 99
[2023-07-28 15:00] VITALS: BP 144/83; PULSE 67; RESP 18; O2SAT 100
--- NOTE | 2023-07-28 15:15 | ED.GENADULT ---
HPI - General Adult General Chief complaint: Urogenital-Female Stated complaint: hematuria, flank pain Time Seen by Provider: 07/28/23 13:06 History of Present Illness HPI narrative: Patient is a 42-year-old female who presents ER with hematuria. She passed a kidney stone over the weekend and has continued to have intermittent hematuria since then. She will also have cramping in lower abdomen moving up the left side. No fevers or chills or sweats. She has not been seen for her kidney stones years recently started passing them more frequently. Related Data Home Medications Medication Instructions Recorded Confirmed alprazolam 1 mg tablet 1 mg PO TID 06/08/21 07/28/23 ergocalciferol (vitamin D2) 1,250 1,250 mcg PO DIRECTED 06/08/21 07/28/23 mcg (50,000 unit) capsule omeprazole 20 mg capsule,delayed 20 mg PO DAILY 06/08/21 07/28/23 release potassium chloride 10 mEq 40 meq PO DAILY 07/01/22 07/28/23 tablet,extended release ferrous gluconate 324 mg (38 mg 324 mg PO DAILY 02/11/23 07/28/23 iron) tablet naproxen 500 mg tablet 500 mg PO DAILY PRN Pain 02/11/23 07/28/23 furosemide 20 mg tablet 20 mg PO DAILY 03/07/23 07/28/23 midodrine 5 mg tablet 5 mg PO PRN PRN HYPOTESION 03/07/23 07/28/23 famotidine 20 mg tablet 20 mg PO BID 03/25/23 07/28/23 pregabalin 150 mg capsule 150 mg PO BID 04/18/23 07/28/23 tizanidine 2 mg tablet 2 mg PO TID 04/18/23 07/28/23 tramadol 50 mg tablet See Rx Instructions .Route .COMPLEX 05/23/23 07/28/23 Allergies Allergy/AdvReac Type Severity Reaction Status Date / Time codeine Allergy Mild Nausea and Verified 07/28/23 13:06 Vomiting nitrofurantoin Allergy Mild Swelling Verified 07/28/23 13:06 [From Macrobid] Sulfa (Sulfonamide Allergy Mild Hives Verified 07/28/23 13:06 Antibiotics) vancomycin Allergy Mild Hives Verified 07/28/23 13:06 Review of Systems Review of Systems: All systems reviewed & are unremarkable except as noted in HPI and below Constitutional: Constitutional: Reports no additional constitutional complaints Cardiovascular: Cardiovascular: Reports no additional cardiovascular complaints Respiratory: Respiratory: Reports no additional respiratory complaints Gastrointestinal: Gastrointestinal: Reports no additional gastrointestinal complaints Genitourinary: Genitourinary: Reports hematuria, Reports nocturia, Denies dysuria and Reports flank pain 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, bilateral 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 Lumbosacral radiculopathy Vapes nicotine containing substance Surgical History Surgical History H/O splenectomy thrombocytopenia,reports has 2 pancreatic stents History of bladder suspension procedure Hx of cholecystectomy Previous section Social History Social History Smoking packs per day: 1 Smoking cigarettes per day: 20.0 Years smoked: 20 Smoking pack-years: 20.00 Smoking status: Former smoker Tobacco type: cigarettes and e-cigarettes/vaping Additional smoking assessment comments: 1.5 YR VAPING Alcohol intake: former Substance use: former Substance use type: prescription drug Other substance usage details: FENTANYL Last use: 2008 Living arrangements: alone Gender identity (if verbalized by the patient): Female Exam Narrative: GENERAL: Well-appearing, well-nourished, and in no acute distress. HEAD: Normocephalic, atraumatic. ENT: Mucous membranes moist. CHEST: Clear to auscultation. No respiratory distress. HEART: Regular rate and rhythm. Normal peripheral pulses. ABDOMEN: Soft, nontender, nondistended, Mild left CVA tenderness. EXTREMITIES: Normal range of motion. No edema. SKIN: Warm, dry, no rash. NEURO: Alert
== END 2023-07-28 15:35 | disposition home or self-care (01) ==
PROVIDERS: Physician Assistant; Emergency Provider Emergency Medicine; PCP Internal Medicine
DX: N39.0 Urinary tract infection, site not specified (principal); I10 Essential (primary) hypertension; K21.9 Gastro-esophageal reflux disease without esophagitis; F41.9 Anxiety disorder, unspecified; F17.290 Nicotine dependence, other tobacco product, uncomplicated; Z90.81 Acquired absence of spleen; Z90.49 Acquired absence of other specified parts of digestive tract; Z79.891 Long term (current) use 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; Z79.899 Other long term (current) drug therapy
CPT/HCPCS: 36415; 74018; 74176; 80053; 81001; 81003; 81025; 83605; 85025; 96361; 96374; 96375; 99284; J2270; J2405; J7030

== ENCOUNTER 2023-09-04 15:15 | Outpatient (RCR) | payer OTHER, SELFPAY ==
--- NOTE | 2023-08-12 09:05 | OPREHPOC ---
Outpatient Therapy Plan of Care This is a Multidisciplinary Plan of Care that may contain components documented by all disciplines (PT, OT, and ST.) PT Problem 1 PT Problem #1 Knowledge Deficit PT Goal 1 Goal *pt able to state 3 methods for pain control Target Visit 8 PT Problem 2 PT Problem #2 Pain PT Goal 1 Goal 1* pt report pain at worst of 8/10 2* self assessment Neck Disability Index rating of 50% limitation 3* pt report sleeping duration of 1 & 1/ 2 hour at time Target Visit 8 PT Problem 3 PT Problem #3 Impaired Range of Motion PT Goal 1 Goal 1*active cervical rotation R/L and shoulder flexion and abduction ROM R and L, maintain at WNL, to be able to perform self care and light home tasks Target Visit 8
--- NOTE | 2023-08-12 09:05 | PTOPEVAL1 ---
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 prior to neck pain--active, ran, did pilates Reported Pain Level Pain Score Self Report Additional Pain Score Comments pain range of 6-15/10; neck, radicular into R UE to finger tips--numbness comes and goes, but pain is constant; increase pain: sitting, move arm, move head, lie down, driving decrease pain: nothing try stretching, muscle relaxer, heat, ice, every muscle cream---nothing really helps sleeping is about 3 hours total/night, with awakening about every 45 minutes also---lumbar pain with radicular pain into L LE have home stim unit--helps a little, only helps when it it on and going discussed cervical collar for relief of neck; Assessment PT Clinical Summary Margarita has the diagnosis of cervical herniated disc. Neck Disability Index self rating of 62% limitation. She is not working due to cervical pain and radicular into both UE's. Sleep and activity level are disrupted. She is scheduled for surgery November 03. With the evaluation: cervical and shoulder ROM active is WNL with increase pain; tightness and spasms over cervical and upper traps areas. Skilled PT services are indicated for modalities and education to manage her pain prior to surgery; orders for education for home traction use. Plan of Care Interventions Hot Pack/Cold Pack,Manual Therapy,Mechanical Traction,Neuro Re-education,Therapeutic Activities ,Therapeutic Exercise,Ultrasound,pt education Other Interventions taping, dry needling PT Services Indicated
--- NOTE | 2023-08-21 12:52 | PCPTNOTE ---
No call No show. AKS
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
--- NOTE | 2023-09-02 09:24 | PCPTNOTE ---
Pt no showed visit today and was left message about next appt and to call and cancel if she needed.
--- NOTE | 2023-09-09 12:05 | PCPTNOTE ---
pt did not show for today's appt; called her and she reported she slept through her alarm this AM; stated she will be here at next appt on Fri.
--- NOTE | 2023-09-12 10:14 | PCPTNOTE ---
No call No show, reason unknown. AKLiyah
--- NOTE | 2023-09-16 15:16 | PCPTNOTE ---
Pt NS visit today.
--- NOTE | 2023-09-19 08:42 | PTOPDC ---
Assessment and note entered by Melissa Baltazar, PT Discharge Report Assessment Status Discharge - Pt Not Present Diagnosis C 4-5, C 5-6 and C6-7 herniated disc Onset Mar 2023 Subjective Information pt was not seen this date Assessment PT Clinical Summary Margarita has received 4 PT sessions, from August 11 to September 03. She call/cancelled 1 and did not show for 5 appointments. Discharge PT due to not attending. The goals were not addressed. Plan of Care PT Services Indicated No
== END 2023-10-20 11:01 | disposition home or self-care (01) ==
LOC: ANHPT 15:15
PROVIDERS: PCP Internal Medicine; Visit Provider Neurological Surgery
DX: M50.221 Other cervical disc displacement at C4-C5 level (principal); M50.222 Other cervical disc displacement at C5-C6 level; M50.223 Other cervical disc displacement at C6-C7 level
CPT/HCPCS: 97012; 97035; 97110; 97140; 97161

== ENCOUNTER 2023-11-25 13:27 | Emergency (ER) | payer OTHER, SELFPAY ==
[2023-11-25 13:33] VITALS: BP 127/84; PULSE 67; RESP 16; TEMP 37.1; O2SAT 99
[2023-11-25 13:34] VITALS: BP 127/84; PULSE 67; RESP 16; TEMP 37.1; O2SAT 99
--- NOTE | 2023-11-25 13:38 | ED.DENTAL ---
HPI - Dental/Oral General Chief complaint: Dental/Oral Stated complaint: Dental Pain Time Seen by Provider: 11/25/23 13:38 Source: patient Mode of arrival: ambulatory Limitations: no limitations History of Present Illness HPI Narrative: Patient is a 43-year-old female who presents with right lower dental pain due to dentures rubbing. Patient states her dentist cannot get her in until next week. Reports there is a sore and has had pus draining from it with bitter taste in mouth. Related Data Home Medications Medication Instructions Recorded Confirmed alprazolam 1 mg tablet 1 mg PO TID 06/08/21 11/25/23 ergocalciferol (vitamin D2) 1,250 1,250 mcg PO DIRECTED 06/08/21 11/25/23 mcg (50,000 unit) capsule omeprazole 20 mg capsule,delayed 20 mg PO DAILY 06/08/21 11/25/23 release potassium chloride 10 mEq 40 meq PO DAILY 07/01/22 11/25/23 tablet,extended release ferrous gluconate 324 mg (38 mg 324 mg PO DAILY 02/11/23 11/25/23 iron) tablet furosemide 20 mg tablet 20 mg PO DAILY 03/07/23 11/25/23 famotidine 20 mg tablet 20 mg PO BID 03/25/23 11/25/23 tramadol 50 mg tablet See Rx Instructions .Route .COMPLEX 05/23/23 11/25/23 Allergies Allergy/AdvReac Type Severity Reaction Status Date / Time cephalexin Allergy Intermediate Swelling Verified 11/25/23 13:34 Sulfa (Sulfonamide Allergy Intermediate Hives Verified 10/27/23 16:29 Antibiotics) vancomycin Allergy Intermediate Hives Verified 10/27/23 16:29 codeine Allergy Mild Nausea and Verified 10/27/23 16:29 Vomiting nitrofurantoin Allergy Mild Swelling Verified 10/27/23 16:29 [From Macrobid] Review of Systems Review of Systems: All systems reviewed & are unremarkable except as noted in HPI and below Constitutional: Constitutional: Denies body ache(s), Denies fever(s), Denies headache(s), Denies malaise and Denies weakness Eyes: Eyes: Denies loss of vision ENT: Denies otalgia, Reports facial pain (jaw), Denies headache(s), Denies nasal discharge, Denies sinus pain and Denies sore throat Cardiovascular: Cardiovascular: Denies chest pain, Denies irregular heart rhythm and Denies dyspnea Respiratory: Respiratory: Denies dyspnea Gastrointestinal: Gastrointestinal: Denies abdominal pain, Denies melena, Denies hematochezia, Denies diarrhea, Denies nausea and Denies vomiting Musculoskeletal: Musculoskeletal: Denies back pain, Denies myalgias and Denies arthralgias Integumentary/Breasts: Skin/Breast: Denies pruritus and Denies rash Neurologic: Denies headache(s), Denies loss of vision and Denies weakness Psychiatric: Psychiatric: Reports no additional psychiatric complaints [facility] Past Medical History Medical History Anxiety Asplenia Back pain GERD (gastroesophageal reflux disease) Heart palpitations Hypertension Leg pain, bilateral 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) use 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 Lumbosacral radiculopathy Vapes nicotine containing substance Surgical History Surgical History H/O splenectomy thrombocytopenia,reports has 2 pancreatic stents History of bladder suspension procedure Hx of cholecystectomy Previous section Social History Social History Smoking packs per day: 1 Smoking cigarettes per day: 20.0 Years smoked: 20 Smoking pack-years: 20.00 Smoking status: Former smoker Tobacco type: cigarettes and e-cigarettes/vaping Additional smoking assessment comments: 1.5 YR VAPING Alcohol intake: former Substance use: former Substance use type: prescription drug Other substance usage details: FENTANYL Last use: 2008 Do You Feel Safe in your Home?: Yes Lack of Transportation: No Lack of Food: Sometimes True Current Housing: I Have Housing Concerned About Future Housing: Decline to Answer Difficulty Paying Gas/Electric Bills: YES Difficulty Paying for Meds: YES Currently Unemployed: Dec
== END 2023-11-25 14:00 | disposition home or self-care (01) ==
PROVIDERS: Emergency Provider Nurse Practitioner Family; PCP Internal Medicine
DX: K04.7 Periapical abscess without sinus (principal); F17.290 Nicotine dependence, other tobacco product, uncomplicated; K21.9 Gastro-esophageal reflux disease without esophagitis; I10 Essential (primary) hypertension; F41.9 Anxiety disorder, unspecified
CPT/HCPCS: 99213; G0463

== ENCOUNTER 2024-02-03 15:13 | Outpatient (CLI) | payer OTHER, SELFPAY ==
--- NOTE | ~2024-02-03 | CT_ITS ---
EXAMINATION: CT abdomen pelvis wo/w con DATE: 02/03/2024 16:35 INDICATION: Gross hematuria. TECHNIQUE: Computed tomography (CT) of the abdomen and pelvis was performed without and with intraven ous contrast using a total of 130 mL Omnipaque-350 intravenous contrast with a double-bolus technique for simultaneous opacification of the renal parenchyma and renal collecting system. Automated exposu re control and iterative reconstruction technique were employed. The dose-length product was 1502.64 mGy-cm. COMPARISON: CT abdomen and pelvis 07/28/2023 FINDINGS: The visualized portions of the lung bases demonstrate mild atelectasis. No pleural effusion. The hear t size is normal. No pericardial effusion. The liver is normal. There are changes of cholecystectomy. The spleen is absent. The pancreas and adrenal glands are normal. Right kidney is normal. There is a 10 mm cyst in left kidney. There is no urolithiasis. The ureters are well opacified and are normal. There is motion artifact on the postcontrast images. The bladder is normal. There are no dilated loop s of bowel. There are no pathologically enlarged lymph nodes. There is physiologic fluid in the pelvi s. There is mild thoracic and lumbar spondylosis. IMPRESSION: 1. No etiology for hematuria. Reviewed, dictated and finalized at location A. BUSTER
== END 2024-02-03 15:14 | disposition home or self-care (01) ==
PROVIDERS: PCP Internal Medicine; Visit Provider Internal Medicine
DX: R31.0 Gross hematuria (principal)
CPT/HCPCS: 74178; Q9967

== ENCOUNTER 2024-02-03 16:50 | Emergency (ER) | payer OTHER, SELFPAY ==
[2024-02-03 16:59] VITALS: BP 128/75; PULSE 72; RESP 16; TEMP 36.7; O2SAT 99
--- NOTE | 2024-02-03 17:22 | ED.GENADULT ---
HPI - General Adult General Chief complaint: Upper Respiratory Infection Stated complaint: NAUSEA/POSS STREP Source: patient Mode of arrival: ambulatory Limitations: no limitations History of Present Illness HPI narrative: Patient presents for evaluation of sore throat. Symptom onset today. She reports cervical lymphadenopathy and left ear pain. Her boyfriend's child was diagnosed with strep today. No fever, chills, shortness of breath or cough. She also indicates that she had a CT scan done today. She had nausea and vomiting after receiving IV dye. She was advised to go to urgent care to get a prescription for antiemetics. Related Data Home Medications Medication Instructions Recorded Confirmed alprazolam 1 mg tablet 1 mg PO TID 06/08/21 11/25/23 ergocalciferol (vitamin D2) 1,250 1,250 mcg PO DIRECTED 06/08/21 11/25/23 mcg (50,000 unit) capsule omeprazole 20 mg capsule,delayed 20 mg PO DAILY 06/08/21 11/25/23 release potassium chloride 10 mEq 40 meq PO DAILY 07/01/22 11/25/23 tablet,extended release ferrous gluconate 324 mg (38 mg 324 mg PO DAILY 02/11/23 11/25/23 iron) tablet furosemide 20 mg tablet 20 mg PO DAILY 03/07/23 11/25/23 famotidine 20 mg tablet 20 mg PO BID 03/25/23 11/25/23 tramadol 50 mg tablet See Rx Instructions .Route .COMPLEX 05/23/23 11/25/23 Allergies Allergy/AdvReac Type Severity Reaction Status Date / Time cephalexin Allergy Intermediate Swelling Verified 02/03/24 16:52 Sulfa (Sulfonamide Allergy Intermediate Hives Verified 02/03/24 16:52 Antibiotics) vancomycin Allergy Intermediate Hives Verified 02/03/24 16:52 codeine Allergy Mild Nausea and Verified 02/03/24 16:52 Vomiting nitrofurantoin Allergy Mild Swelling Verified 02/03/24 16:52 [From Macrobid] Review of Systems Review of Systems: CONSTITUTIONAL: Denies fever, chills, or sweats. EYES: Denies visual changes, redness, or discharge. ENT: Reports sore throat and left sided ear pain. Denies rhinorrhea and congestion. CARDIOVASCULAR: Denies chest pain, palpitations, or edema. RESPIRATORY: Denies cough or dyspnea. GASTROINTESTINAL:Reports nausea and vomiting earlier, now resolved. Denies abdominal pain or diarrhea. GENITOURINARY: Denies dysuria or hematuria. SKIN: Denies rash or itching. MUSCULOSKELETAL: Denies back pain, joint pain, or myalgia. NEUROLOGIC: Denies headache, numbness, dizziness, or weakness. PSYCHIATRIC: Denies anxiety or depression. 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 Lumbosacral radiculopathy Vapes nicotine containing substance Surgical History Surgical History H/O splenectomy thrombocytopenia,reports has 2 pancreatic stents History of bladder suspension procedure Hx of cholecystectomy Previous section Social History Social History Smoking packs per day: 1 Smoking cigarettes per day: 20.0 Years smoked: 20 Smoking pack-years: 20.00 Smoking status: Former smoker Tobacco type: cigarettes and e-cigarettes/vaping Additional smoking assessment comments: 1.5 YR VAPING Alcohol intake: former Substance use: former Substance use type: prescription drug Other substance usage details: FENTANYL Last use: 2008 Do You Feel Safe in your Home?: Yes Lack of Transportation: No Lack of Food: Sometimes True Current Housing: I Have Housing Concerned About Future Housing: Decline to Answer Difficulty Paying Gas/Electric Bills: YES Difficulty Paying for Meds: YES Currently Unemployed: Decline to Answer Education: High School Diploma/GED Difficulty w/ Childcare or Family Care: YES Living arrangements: alone Gender identity (if verbalized by the patient): Female Exam Narrative: GENERAL: Well-appearing, well-nourished, and in no acute distress. HEAD: Normocephalic, atraumatic. EYES: PERRLA and EOMI. ENT: Nares clear, no rhinorrhea or epistaxis. Mucous membranes moist. Posterior pharyngeal erythema without exudate. Uvula is midline. Mild left TM erythema NECK: Supple. No adenopathy or masses. No carotid bruits or JVD CHEST: Clear to auscultation. No respiratory distress. No wheezes rales or rhonchi HEART: Regular rate and rhythm. No murmur heard. Normal peripheral pulses. ABDOMEN: Soft, nontender, nondistended, normal active bowel sounds. EXTREMITIES: Normal range of motion. No edema. SKIN: Warm, dry, no rash. NEURO: No focal deficits. Alert and oriented x3. PSYCH: Normal mood and affect. Course Course Emergency Course: This is a 43-year-old female who presented for evaluation of sore throat and left ear pain after recent strep exposure. Through shared decision making opted to proceed with antibiotic therapy. She has several drug allergies was given azithromycin. [id number] agents for symptom management. Follow up with primary provider. Go to the ER for worsening symptoms. Will give her prescription for Zofran. Patient in agreement plan of care Level of Care: Express Care Visit Vital Signs Vital signs: Vital Signs Temperature 36.7 C 02/03/24 16:59 Pulse Rate 72 02/03/24 16:59 Respiratory Rate 16 02/03/24 16:59 Blood Pressure 128/75 02/03/24 16:59 Pulse Oximetry 99 02/03/24 16:59 Oxygen Delivery Room Air 02/03/24 16:59 Temperature 36.7 C 02/03/24 16:59 Pulse Rate 72 02/03/24 16:59 Respiratory Rate 16 02/03/24 16:59 Blood Pressure 128/75 02/03/24 16:59 Pulse Oximetry 99 02/03/24 16:59 Oxygen Delivery Room Air 02/03/24 16:59 Medical Decision Making Vital Signs Vital Signs: Vital Signs Temperature 36.7 C 02/03/24 16:59 Pulse Rate 72 02/03/24 16:59 Respiratory Rate 16 02/03/24 16:59 Blood Pressure 128/75 02/03/24 16:59 Pulse Oximetry 99 02/03/24 16:59 Oxygen Delivery Room Air 02/03/24 16:59 Temperature 36.7 C 02/03/24 16:59 Pulse Rate 72 02/03/24 16:59 Respiratory Rate 16 02/03/24 16:59 Blood Pressure 128/75 02/03/24 16:59 Pulse Oximetry 99 02/03/24 16:59 Oxygen Delivery Room Air 02/03/24 16:59 Discharge Plan Discharge Clinical Impression: Exposure to strep throat, Pharyngitis, Nausea & vomiting Patient Disposition: Home, Self-Care Condition: Stable Instructions: Antibiotic Form, Pharyngitis (ED), Acute Nausea and Vomiting (ED) Patient Language: Luxembourgish Prescriptions: New ondansetron 4 mg tablet,disintegrating 4 mg PO Q8H PRN (Reason: nausea and vomiting) Qty: 15 0RF azithromycin 250 mg tablet See Rx Instructions .ROUTE .COMPLEX Qty: 6 0RF Rx Instructions: For 250 mg dose pack: take 500 mg today (day 1), then 250 mg for 4 days (days 2-5) No Action folic acid 1 mg tablet 1 mg PO DAILY Qty: 30 0RF divalproex 125 mg tablet,delayed release (DR/EC) 125 mg PO DAILY Qty: 14 0RF ferrous gluconate 324 mg (38 mg iron) tablet 324 mg PO DAILY alprazolam 1 mg tablet 1 mg PO TID omeprazole 20 mg capsule,delayed release(DR/EC) 20 mg PO DAILY ergocalciferol (vitamin D2) 1,250 mcg (50,000 unit) capsule 1,250 mcg PO DIRECTED Rx Instructions: -FRIDAY potassium chloride 10 mEq tablet extended release 40 meq PO DAILY furosemide 20 mg tablet 20 mg PO DAILY tramadol 50 mg tablet See Rx Instructions .ROUTE .COMPLEX Rx Instructions: Rx amoxicillin-pot clavulanate 875-125 mg tablet 1 tablet PO Q12H 10 Days Qty: 20 0RF lidocaine HCl [Lidocaine Viscous] 2 % solution 1 applic mucous membrane TID PRN (Reason: pain) 7 Days Qty: 600 0RF lidocaine 5 % adhesive patch,medicated 1 patch topical DAILY Qty: 30 1RF Rx Instructions: leave on most painful area for up to 12 hrs famotidine 20 mg tablet 20 mg PO BID methocarbamol 500 mg tablet 500 mg PO QID PRN (Reason: spasms) Qty: 30 1RF Follow-up/Referrals: Travis Laura DO [Physician] - Time of Disposition: 17:20
[2024-02-03 17:23] LABS: EDSTREPNEGPOS1 Negative (Negative)
== END 2024-02-03 17:25 | disposition home or self-care (01) ==
PROVIDERS: Emergency Provider Nurse Practitioner
DX: J02.9 Acute pharyngitis, unspecified (principal); R11.2 Nausea with vomiting, unspecified; Z20.818 Contact with and (suspected) exposure to other bacterial communicable diseases; F17.290 Nicotine dependence, other tobacco product, uncomplicated; K21.9 Gastro-esophageal reflux disease without esophagitis; I10 Essential (primary) hypertension; F41.9 Anxiety disorder, unspecified
CPT/HCPCS: 87081; 87880; 99213; G0463

== ENCOUNTER 2024-05-05 16:59 | Emergency (ER) | payer OTHER, SELFPAY ==
--- NOTE | ~2024-05-05 | XR_ITS ---
EXAMINATION: XR chest 2V DATE: 05/05/2024 18:23 INDICATION: Cough and fever. TECHNIQUE: Frontal and lateral views of the chest were obtained. COMPARISON: Chest single view 12/10/2017 FINDINGS: There is no pneumonia, pleural effusion, or pneumothorax. The heart size is normal. Surgica l clips in the right upper quadrant are likely from cholecystectomy. IMPRESSION: 1. No acute cardiopulmonary disease. Reviewed, dictated and finalized at location A. 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
[2024-05-05 17:15] VITALS: BP 156/88; PULSE 97; RESP 16; TEMP 36.8; O2SAT 100
--- NOTE | 2024-05-05 17:57 | ED_ITS ---
HPI - URI/Sore Throat General Chief Complaint: Upper Respiratory Infection Stated Complaint: Sinus/Sore Throat Time Seen by Provider: 05/05/24 17:57 Source: patient, RN notes reviewed and old records reviewed Mode of arrival: ambulatory Limitations: no limitations History of Present Illness HPI Narrative: Patient presents with complaints of right ear pain, sore throat, fever, chills, sweats, coughing. She also complains of diarrhea. Symptoms present for about 3 days Related Data Home Medications ?Medication ?Instructions ?Recorded ?Confirmed ?Last Taken ?Type alprazolam 1 mg tablet 1 mg PO TID 06/08/21 11/25/23 Unknown History ergocalciferol (vitamin D2) 1,250 1,250 mcg PO DIRECTED 06/08/21 11/25/23 Unknown History mcg (50,000 unit) capsule omeprazole 20 mg capsule,delayed 20 mg PO DAILY 06/08/21 11/25/23 Unknown History release potassium chloride 10 mEq 40 meq PO DAILY 07/01/22 11/25/23 Unknown History tablet,extended release ferrous gluconate 324 mg (38 mg 324 mg PO DAILY 02/11/23 11/25/23 Unknown History iron) tablet furosemide 20 mg tablet 20 mg PO DAILY 03/07/23 11/25/23 Unknown History famotidine 20 mg tablet 20 mg PO BID 03/25/23 11/25/23 Unknown History tramadol 50 mg tablet See Rx Instructions .Route .COMPLEX 05/23/23 11/25/23 Unknown History Allergies Allergy/AdvReac Type Severity Reaction Status Date / Time cephalexin Allergy Intermediate Swelling Verified 05/05/24 17:24 Sulfa (Sulfonamide Allergy Intermediate Hives Verified 05/05/24 17:24 Antibiotics) vancomycin Allergy Intermediate Hives Verified 05/05/24 17:24 codeine Allergy Mild Nausea and Verified 05/05/24 17:24 Vomiting nitrofurantoin (From Allergy Mild Swelling Verified 05/05/24 17:24 Macrobid) Review of Systems Review of Systems: All systems reviewed & are unremarkable except as noted in HPI and below Constitutional: Constitutional: Reports no additional constitutional complaints ENT: Reports system reviewed and no additional complaints, except as documented, Reports nasal discharge and Reports sore throat Cardiovascular: Cardiovascular: Reports no additional cardiovascular complaints Respiratory: Respiratory: Reports no additional respiratory complaints and Reports cough Gastrointestinal: Gastrointestinal: Reports no additional gastrointestinal complaints and Reports diarrhea 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, bilateral 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 Lumbosacral radiculopathy Vapes nicotine containing substance Surgical History Surgical History H/O splenectomy thrombocytopenia,reports has 2 pancreatic stents History of bladder suspension procedure Hx of cholecystectomy Previous section Social History Social History Smoking packs per day: 1 Smoking cigarettes per day: 20.0 Years smoked: 20 Smoking pack-years: 20.00 Smoking status: Former smoker Tobacco type: cigarettes and e-cigarettes/vaping Additional smoking assessment comments: 1.5 YR VAPING Alcohol intake: former Substance use: former Substance use type: prescription drug Other substance usage details: FENTANYL Last use: 2008 Do You Feel Safe in your Home?: Yes Lack of Transportation: No Lack of Food: Sometimes True Current Housing: I Have Housing Concerned About Future Housing: Decline to Answer Difficulty Paying Gas/Electric Bills: YES Difficulty Paying for Meds: YES Currently Unemployed: Decline to Answer Education: High School Diploma/GED Difficulty w/ Childcare or Family Care: YES Living arrangements: alone Gender identity (if verbalized by the patient): Female Comments At the time of my signature, I reviewed and agree with the nursing past medical, surgical, social, and family history. There is no relevant family history pertinent to the patient complaint. Exam Const: General: cooperative, no acute distress, alert and awake Orientation/consciousness: oriented to person, oriented to place and oriented to time HENMT: Head: normal to inspection Ears: TM abnormal bulging on the right and erythematous on the right Mouth: Yes moist mucous membranes Throat: postnasal drainage Resp: Effort & Inspection: normal respiratory effort and able to speak in complete sentences Auscultation: clear to auscultation bilaterally, no crackles, no rales, no rhonchi and no wheezes Cardio: Palpation: normal PMI Rate: regular rate Rhythm: regular rhythm Heart sounds: S1 normal heart sound present and S2 normal heart sound present Neuro: General: oriented to person, oriented to place and oriented to time Cranial nerves: Yes CN's II-XII intact bilaterally Psych: Appearance: grossly normal Thought process: Normal thought process present Insight: Good insight present (Psych) Judgement: Good judgement present (Psych) Course Course Level of Care: Express Care Visit Vital Signs Vital signs: Vital Signs Temperature 98.3 F 05/05/24 17:15 Pulse Rate 97 05/05/24 17:15 Respiratory Rate 16 05/05/24 17:15 Blood Pressure 156/88 H 05/05/24 17:15 Pulse Oximetry 100 05/05/24 17:15 Oxygen Delivery Room Air 05/05/24 17:15 Temperature 98.3 F 05/05/24 17:15 Pulse Rate 97 05/05/24 17:15 Respiratory Rate 16 05/05/24 17:15 Blood Pressure 156/88 H 05/05/24 17:15 Pulse Oximetry 100 05/05/24 17:15 Oxygen Delivery Room Air 05/05/24 17:15 Reviewed MDM - URI/Sore Throat MDM Narrative Medical decision making narrative: Exam consistent with otitis media. Initial symptoms likely viral in origin, patient states they are resolving, but ear pain has been worsening. She is nontoxic appearing, stable for discharge home on p.o. antibiotic therapy. Discharge instructions reviewed with patient, as well as provided in writing per nursing staff. The instructions also include specific and strict return/GO TO THE ER as well as f/u information. All questions have been answered, and the patient deny any further questions with discharge and discharge plan. Some parts of this dictation were generated by voice recognition software and may contain typographical and/or grammatical inaccuracies. Differential Diagnosis Differential diagnosis: Likely upper respiratory infection, otitis media and viral infection Medical Records Attestation: I reviewed the patient's medical records. Lab Data Labs: Lab Results 05/05/24 05/05/24 05/05/24 Range/Units 17:45 18:10 18:11 POC Influenza A Ag Negative Negative (Negative) POC Influenza B Ag Negative Negative (Negative) POC SARS CoV-2 Ag Negative Negative (Negative) POC Grp A Strep Screen Negative Negative (Negative) Imaging Data Radiologist's impression: [facility] [address] [place] [address] XRay Report Signed Patient: Margarita Anaya : 1980 MR#: [id number] Age: 43 Acct:[id number] Loc: [facility] ADM Date: 05/05/24Attending Dr: Ordering Physician: Kavitha Sterling FNP Date of Service: 05/05/24 Procedure(s): XR chest 2V Accession Number(s): [id number] cc: Kavitha Sterling FNP; Alessandro Gabriel MD~ EXAMINATION: XR chest 2V DATE: 05/05/2024 18:23 INDICATION: Cough and fever. TECHNIQUE: Frontal and lateral views of the chest were obtained. COMPARISON: Chest single view 12/10/2017 FINDINGS: There is no pneumonia, pleural effusion, or pneumothorax. The heart size is normal. Surgical clips in the right upper quadrant are likely from cholecystectomy. IMPRESSION: 1. No acute cardiopulmonary disease. Reviewed, dictated and finalized at location A. OR JAVA DEVELOPER Please be advised this is a medical document. It is intended for [id number] communication. It is written in medical language and may contain unfamiliar abbreviations or verbiage. Medical documents are intended to carry relevant information, facts as evident, and the clinical opinion of the practitioner at the time of the encounter. This report may have been done utilizing a voice recognition system. Attempts have been made to correct errors. However, there may be uncorrected grammatical, spelling, and recognition errors present. The file time of this note does not necessarily represent the time of service. Dictated By: Gabo Smith MD 05/05/241826 Signed By: <Electronically signed by Gabo Smith MD in OV> 05/05/241827 Discharge Plan Discharge Clinical Impression: Otitis media Qualifiers: Otitis media type: suppurative Chronicity: acute Laterality: right Recurrence: not specified as recurrent Spontaneous tympanic membrane rupture: without spontaneous rupture Qualified Code(s): H66.001 - Acute suppurative otitis media without spontaneous rupture of ear drum, right ear Patient Disposition: Home, Self-Care Condition: Stable Instructions: Antibiotic Form, Earache (ED) Additional Instructions: Take medications as prescribed. Follow with primary care provider. Emergency department for new or worsening symptoms Patient Language: Pakistani Prescriptions: New azithromycin 250 mg tablet See Rx Instructions PO .COMPLEX Qty: 6 0RF Rx Instructions: For 250 mg dose pack: take 500 mg today (day 1), then 250 mg for 4 days (days 2-5) prednisone 50 mg tablet 50 mg PO DAILY Qty: 5 0RF No Action folic acid 1 mg tablet 1 mg PO DAILY Qty: 30 0RF ferrous gluconate 324 mg (38 mg iron) tablet 324 mg PO DAILY alprazolam 1 mg tablet 1 mg PO TID omeprazole 20 mg capsule,delayed release(DR/EC) 20 mg PO DAILY ergocalciferol (vitamin D2) 1,250 mcg (50,000 unit) capsule 1,250 mcg PO DIRECTED Rx Instructions: -FRIDAY potassium chloride 10 mEq tablet extended release 40 meq PO DAILY furosemide 20 mg tablet 20 mg PO DAILY tramadol 50 mg tablet See Rx Instructions .ROUTE .COMPLEX Rx Instructions: Rx lidocaine HCl [Lidocaine Viscous] 2 % solution 1 applic mucous membrane TID PRN (Reason: pain) 7 Days Qty: 600 0RF ondansetron 4 mg tablet,disintegrating 4 mg PO Q8H PRN (Reason: nausea and vomiting) Qty: 15 0RF lidocaine 5 % adhesive patch,medicated 1 patch topical DAILY Qty: 30 1RF Rx Instructions: leave on most painful area for up to 12 hrs famotidine 20 mg tablet 20 mg PO BID methocarbamol 500 mg tablet 500 mg PO QID PRN (Reason: spasms) Qty: 30 1RF Follow-up/Referrals: Alessandro Gabriel MD [Primary Care Provider] - Time of Disposition: 19:00
[2024-05-05 18:12] LABS: EDSTREPNEGPOS1 Negative (Negative)
[2024-05-05 18:12] LABS: EDCOVIDSCREEN Negative (Negative); EDINFLUASCREEN Negative (Negative); EDINFLUBSCREEN Negative (Negative)
[2024-05-05 18:26] LABS: EDCOVIDSCREEN Negative (Negative); EDINFLUASCREEN Negative (Negative); EDINFLUBSCREEN Negative (Negative); EDSTREPNEGPOS1 Negative (Negative)
== END 2024-05-05 19:05 | disposition home or self-care (01) ==
PROVIDERS: Emergency Provider Nurse Practitioner Family; PCP Internal Medicine
DX: H66.001 Acute suppurative otitis media without spontaneous rupture of ear drum, right ear (principal); Z20.822 Contact with and (suspected) exposure to COVID-19; K21.9 Gastro-esophageal reflux disease without esophagitis; I10 Essential (primary) hypertension; F41.9 Anxiety disorder, unspecified
CPT/HCPCS: 71046; 87081; 87426; 87804; 87880; 99213; G0463

== ENCOUNTER 2024-07-30 11:05 | Outpatient (CLI) | payer OTHER, SELFPAY ==
--- NOTE | ~2024-07-30 | XR_ITS ---
Lumbosacral Spine: AP and lateral views Clinical History: Pain Findings: The normal lordotic curve is maintained. The vertebral bodies and posterior elements are i ntact. The intervertebral disc spaces are preserved. There is mild to moderate facet arthropathy at the lower lumbar spine. The sacroiliac joints are normally outlined. Impression: Mild to moderate facet arthropathy. Reviewed, dictated and finalized at location . Impression: Mild to moderate facet arthropathy.
--- OUTSIDE RECORDS SUMMARY | 2024-07-30 11:12 | XMS_ITS | Referral Summary ---
Author Organization [facility] Address [address] [place] [address] Care Team Providers Care Scrap Preparer Name Role Phone Alessandro Gabriel MD Primary Care Provider Tomer Marquez MD Unavailable [phone] [facility] Unavailable Encounters Date Type Department Care Team Description 05/12/2024 8:03 AM CEREAL MILLER - 05/14/2024 2:27 PM CEREAL MILLER Hospital Encounter [place] [address] [place] [address] [phone] Ulises Ramirez MD Nyquist, David J., MD Alcohol abuse with withdrawal without complication (HCC) (Primary Dx); Lightheadedness Discharge Disposition: Discharge to home or self care from Last 3 Months Allergies Active Allergy Reactions Criticality Noted Date Comments Codeine Nitrofurantoin Swelling Medium 12/04/2022 Penicillins Swelling Medium 05/12/2024 Swelling in legs Promethazine Hives Medium 09/23/2022 Propranolol Hives Medium 09/23/2022 Sulfa (Sulfonamide Antibiotics) Hives Medium 09/14 Vancomycin Rash Medium 12/31/2020 Medications folic acid (FOLVITE) 1 mg tablet Take 1 tablet (1 mg total) by mouth daily Active potassium chloride ER (KLOR-CON) 20 mEq CR tablet Take 1 tablet (20 mEq total) by mouth daily Active multivitamin capsule Take 1 capsule by mouth daily Active omeprazole (PriLOSEC) 20 mg capsule Take 1 capsule (20 mg total) by mouth daily Active acetaminophen (TYLENOL) 500 mg tablet Take 1 tablet (500 mg total) by mouth every 6 (six) hours as needed for pain Active furosemide (LASIX) 20 mg tablet Take 1 tablet (20 mg total) by mouth daily as needed (swelling) 5 tablet [address] (DEPAKOTE) 125 mg EC tabletIndicatio ns:Mood Stabilizer Take 1 tablet (125 mg total) by mouth 2 (two) times a day Active cetirizine (ZyrTEC) 10 mg tablet Take 1 tablet (10 mg total) by mouth daily as needed for allergies Active hydrOXYzine (VISTARIL) 50 mg capsule Take 1 capsule (50 mg total) by mouth 3 (three) times a day as needed for anxiety Active methocarbamoL (ROBAXIN) 500 mg tablet Take 1 tablet (500 mg total) by mouth 4 (four) times a day as needed Active traMADoL (ULTRAM) 50 mg tablet Take 1 tablet (50 mg total) by mouth every 8 (eight) hours as needed Active ALPRAZolam (XANAX) 1 mg tablet Take 1 tablet (1 mg total) by mouth 3 (three) times a day as needed for anxiety Active thiamine (VITAMIN B1) 100 mg tabletIndicatio ns:Thiamine Deficiency Take 1 tablet (100 mg total) by mouth daily 90 tablet 3 5 05/20/19 26 Active nicotine (NICODERM CQ) 21 mgIndications:S moking Cessation Place 1 patch on the skin daily 30 patch [address] (CAMPRAL) 333 mg EC tabletIndicatio ns:alcoholism Take 2 tablets (666 mg total) by mouth 3 (three) times a day 180 tablet 5 Active ibuprofen (ADVIL,MOTRIN) 200 mg tab/cap Take 3 tablet/capsule (600 mg total) by mouth every 8 (eight) hours as needed for pain Take with food, use as little as possible 5 Active famotidine (PEPCID) 20 mg tablet Take 1 tablet (20 mg total) by mouth 2 (two) times a day as needed for heartburn or indigestion 60 tablet 5 Active chlordiazePOXID E (LIBRIUM) 25 mg capsuleIndicati ons:Alcohol Withdrawal Syndrome Take 2 capsules (50 mg total) by mouth 4 (four) times a day as needed for anxiety Use one tablet if possible to avoid oversedation, may take two if needed. Anticipate needing gradually less each day, can taper off completely. 60 capsule Active Active Problems Problem Noted Date Diagnosed Date UTI due to Klebsiella species 05/14/2024 Paresthesias 05/14/2024 Alcohol abuse with withdrawal without complicati on 05/12/2024 Syncope and collapse 02/25/2023 Sinusitis 02/25/2023 Hyponatremia 02/25/2023 Hypotension 02/25/2023 Anemia 02/25/2023 Chronic back pain 02/25/2023 Lower abdominal pain 02/25/2023 Hypokalemia 01/24/2023 Nose cellulitis 01/23/2023 Resolved Problems Problem Noted Date Diagnosed Date Resolved Date Benzodiazepine withdrawal, uncomplicated 05/17/2022 01/24/2023 ACS (acute coronary syndrome) 08/03/2021 01/24/2023 Immunizations Immunization Administration Dates Next Due Influenza, Quadrivalent, Spl it, Preservative Free, Intramuscular 02/27/2023 Social History Tobacco Use Types Packs/Day Years Used Date Smoking Tobacco: Former Alcohol Use Standard Drinks/Week Comments Not Currently 0 (1 standard drink = 0.6 oz pur e alcohol) [facility] Utilities Answer Date Recorded In the past 12 months has e [employer], gas, oil, or water [email or web address] threatened to shut off services in your home? No 05/13/2024 Social Connection and Isolat ion Panel [NHANES] Answer Date Recorded In a typical week, how many times do you talk on the phone with family, friends, or neighbors? More than three times a week 05/13/2024 How often do you get togethe r with friends or relatives? More than three times a week 05/13/2024 How often do you attend chur or caodaism services? 1 to 4 times per year 05/13/2024 Do you belong to any clubs o r organizations such as jehovah's witness groups, unions, fraternal or athletic groups, or school groups? No 05/13/2024 How often do you attend meet ings of the clubs or organizations you belong to? Never 05/13/2024 Are you , , di vorced, , never , or living with a partner? Living with partner 05/13/2024 Overall Financial Resource Strain (CARDIA) Answe r Date Recorded How hard is it for you to pa y for the very basics like food, housing, medical care, and heating? Somewhat hard 05/13/2024 Hunger Vital Sign Answer Date Recorded Within the past 12 months, y ou worried that your food would run out before you got the money to buy more. Sometimes true Within the past 12 months, t he food you bought just didn't last and you didn't have money to get more. Never true PRAPARE - Transportation Answer Date Re corded In the past 12 months, has l ack of transportation kept you from medical appointments or from getting medications? No 04/18 In the past 12 months, has l ack of transportation kept you from meetings, work, or from getting things needed for daily living? No 05/13/2024 Housing Stability Vital Sign Answer Martinez e Recorded In the last 12 months, was t here a time when you were not able to pay the mortgage or rent on time? No 05/20/2022 Number of Places Lived in the Last Year Not on f ile 05/20/2022 In the last 12 months, was t here a time when you did not have a steady place to sleep or slept in a penitentiary (including now)? No 05/20/2022 Housing Stability Vital Sign Answer Martinez e Recorded In the last 12 months, was t here a time when you were not able to pay the mortgage or rent on time? No 05/13/2024 In the past 12 months, how m any times have you moved where you were living? 0 05/13/2024 At any time in the past 12 m [facility], were you homeless or living in a penitentiary (including now)? No 05/13/2024 Personal Safety Answer Date Recorded Have you ever been in or are you currently in a harmful physical or emotional relationship or is someone making you feel afraid or unsafe? Denies 05/12/2024 Comments No Sex and Gender Information Value Date Recorded Sex Assigned at Not on file Legal Sex Female 7:39 AM CEREAL MILLER Gender Identity Not on file Sexual Orientation Not on file Last Filed Vital Signs Vital Sign Reading Time Taken Comments Blood Pressure 159/98 05/14/2024 11:00 AM CEREAL MILLER Pulse 107 05/14/2024 11:00 AM CEREAL MILLER Temperature 37.1 C (98.8 F) 05/14/2024 11:00 AM CEREAL MILLER Respiratory Rate 16 05/14/2024 11:0 0 AM CEREAL MILLER Oxygen Saturation 99% 05/14/2024 11: 00 AM CEREAL MILLER Inhaled Oxygen Concentration - - Weight 69.8 kg (153 lb 14.1 oz) 05/14/2024 6:16 AM CEREAL MILLER Height 162.6 cm (5' 4.02 ) 05/12/2024 1:59 PM CS T Body Mass Index 26.4 05/12/2024 1:59 PM CEREAL MILLER Plan of Treatment Not on file Procedures Procedure Name Priority Date/Time Associated Diagnosis Comments EGFR Routine 05/14/2024 4:23 AM CEREAL MILLER DIFFERENTIAL AUTO Routine 05/14/2024 4:2 3 AM CEREAL MILLER PHOSPHORUS Routine 05/14/2024 4:23 AM CEREAL MILLER MAGNESIUM Routine 05/14/2024 4:23 AM CEREAL MILLER BASIC METABOLIC PANEL Routine 05/14/2024 4:23 AM CEREAL MILLER CBC WITH AUTO DIFFERENTIAL Routine 05/14/2024 4:23 AM CEREAL MILLER EGFR Routine 05/13/2024 2:44 AM CEREAL MILLER DIFFERENTIAL AUTO Routine 05/13/2024 2:4 4 AM CEREAL MILLER PHOSPHORUS Routine 05/13/2024 2:44 AM CEREAL MILLER MAGNESIUM Routine 05/13/2024 2:44 AM CEREAL MILLER COMPREHENSIVE METABOLIC PANEL Routine 05/13/2024 2:44 AM CEREAL MILLER CBC WITH AUTO DIFFERENTIAL Routine 05/13/2024 2:44 AM CEREAL MILLER VITAMIN D 25 HYDROXY Timed 05/12/2024 1:13 PM CEREAL MILLER VITAMIN B12 STAT 05/12/2024 1:13 PM CEREAL MILLER FOLATE STAT 05/12/2024 1:13 PM CEREAL MILLER MRI BRAIN WO CONTRAST ED 05/12/2024 9:[address] HEAD WO CONTRAST ED 05/12/2024 7 :30 AM CEREAL MILLER TROPONIN T HIGH-SENSITIVITY 2-HOUR Timed 05/12/2024 6:41 AM CEREAL MILLER URINALYSIS, MICROSCOPIC ONLY STAT 05/12/2024 5:49 AM CEREAL MILLER DRUGS OF ABUSE SCREEN, URINE WITH REFLEX CONFIRMATION STAT 05/12/2024 5:49 AM CEREAL MILLER URINE CULTURE STAT 05/12/2024 5:49 AM CEREAL MILLER URINALYSIS AND REFLEX TO MICROSCOPIC AND CULTURE STAT 05/12/2024 5:49 AM CEREAL MILLER XR CHEST 1 VIEW ED 05/12/2024 4:33 AM CEREAL MILLER ECG 12-LEAD STAT 05/12/2024 4:26 AM CEREAL MILLER EGFR STAT 05/12/2024 4:25 AM CEREAL MILLER DIFFERENTIAL AUTO STAT 05/12/2024 4:2 5 AM CEREAL MILLER TROPONIN T HIGH-SENSITIVITY SERIES (BASELINE, 2HR, 4HR, 6HR) STAT 05/12/2024 4:25 AM CEREAL MILLER COMPREHENSIVE METABOLIC PANEL STAT 05/12/2024 4:25 AM CEREAL MILLER CBC WITH AUTO DIFFERENTIAL STAT 05/12/2024 4:25 AM CEREAL MILLER from Last 3 Months Results * eGFR (05/14/2024 4:23 AM CEREAL MILLER) [facility] eGFR >90 >=60 mL/min/1. 73 m2 Comment: Interpretive Data Reference Interval Normal >/= 90 mL/min/1.73m2 Mildly decreased* 60 - 89 mL/min/1.73m2 Mildly to moderately decreased 45 - 59 mL/min/1.73m2 Moderately to severely decreased 30 - 44 mL/min/1.73m2 Severely decreased 15 - 29 mL/min/1.73m2 Kidney Failure < 15 mL/min/1.73m2 *Relative to young adult level Estimated glomerular filtration rate is determined by the 2020 CKD-EPI equation recommended by the National Kidney Foundation (A Unifying Approach to GFR Estimation: Recommendations of the NKF-ASK Task Force on Reassessing the Inclusion of Race in Diagnosing Kidney Disease, JASN 2020). The CKD-EPI equation should not be used for patients with unstable renal function and has not been validated in children and those over 70. Current interpretive data was last reviewed 2021. Blood 05/14/2024 4:23 AM CEREAL MILLER 05/14/2024 4:44 AM CEREAL MILLER Mabel Encarnacion NP LAB BLOOD ORDERABLES Final Result [facility] [address] [facility] Department [place] [address] * (ABNORMAL) Differential, auto (05/14/2024 4:23 AM CEREAL MILLER) [facility] Neutrophil abs 4.1 1.5 - 6.5 K/cumm Imm gran abs 0.0 0.0 - 0.1 K/cumm [facility] Lymphocyte abs 3.5(H) 0.8 - 3.3 K/cumm [facility] Monocyte abs 0.9(H) 0.2 - 0.8 K/cumm [facility] Eosinophil abs 0.6(H) 0.0 - 0.5 K/cumm [facility] Basophil abs 0.1 0.0 - 0.1 K/cumm [facility] Neutrophil pct 45.3 % [facility] Comment: Interpretive Data Percent cell count reference ranges are not reported, since discordance with absolute values may lead to misinterpretation of CBC data. Current Interpretive Data was last revised on 2017. Imm gran pct 0.1 % [facility] Comment: Interpretive Data Percent cell count reference ranges are not reported, since discordance with absolute values may lead to misinterpretation of CBC data. Current Interpretive Data was last revised on 2017. Lymphocyte pct 37.9 % [facility] Comment: Interpretive Data Percent cell count reference ranges are not reported, since discordance with absolute values may lead to misinterpretation of CBC data. Current Interpretive Data was last revised on 2017. Monocyte pct 9.3 % [facility] Comment: Interpretive Data Percent cell count reference ranges are not reported, since discordance with absolute values may lead to misinterpretation of CBC data. Current Interpretive Data was last revised on 2017. Eosinophil pct 6.4 % [facility] Comment: Interpretive Data Percent cell count reference ranges are not reported, since discordance with absolute values may lead to misinterpretation of CBC data. Current Interpretive Data was last revised on 2017. Basophil pct 1.0 % [facility] Comment: Interpretive Data Percent cell count reference ranges are not reported, since discordance with absolute values may lead to misinterpretation of CBC data. Current Interpretive Data was last revised on 2017. Blood 05/14/2024 4:23 AM CEREAL MILLER 05/14/2024 4:44 AM CEREAL MILLER Mabel Encarnacion NP LAB BLOOD ORDERABLES Final Result [facility] [address] [facility] Department [place] [address] * (ABNORMAL) CBC with auto differential (05/14/2024 4:23 AM CEREAL MILLER) WBC 9.1 3.8 - 9.9 K/cumm Hgb 11.1(L) 11.9 - 15.5 g/dL [facility] Hct 33.4(L) 35.6 - 45.5 % [facility] Plt 415(H) 150 - 400 K/cumm [facility] MPV 8.8(L) 9.1 - 12.3 fL [facility] RBC 3.43(L) 3.90 - 5.20 M/cumm [facility] MCV 97.4(H) 81.3 - 96.4 fL [facility] MCH 32.4 27.1 - 33.3 pg [facility] MCHC 33.2 32.3 - 35.7 g/dL [facility] RDW CV 15.3(H) 11.1 - 14.9 % [facility] RDW SD 54.5(H) 35.7 - 48.1 fL [facility] NRBC abs 0.00 0.00 - 0.01 K/cumm [facility] Blood 05/14/2024 4:23 AM CEREAL MILLER 05/14/2024 4:44 AM CEREAL MILLER Mabel Encarnacion JACKHAMMER OPERATOR LAB BLOOD ORDERABLES Final Result Performing Organization Address [facility] de Phone Number [address] [place] [address] * Phosphorus (05/14/2024 4:23 AM CEREAL MILLER) Phosphorus, pl 4.2 2.3 - 4.5 mg/dL Blood 05/14/2024 4:23 AM CEREAL MILLER 05/14/2024 4:44 AM CEREAL MILLER Mabel Encarnacion JACKHAMMER OPERATOR LAB BLOOD ORDERABLES Final Result Performing Organization Address [facility] de Phone Number [address] [address] * Magnesium (05/14/2024 4:23 AM CEREAL MILLER) Magnesium 2.2 1.4 - 2.5 mg/dL Blood 05/14/2024 4:23 AM CEREAL MILLER 05/14/2024 4:44 AM CEREAL MILLER Mabel Encarnacion JACKHAMMER OPERATOR LAB BLOOD ORDERABLES Final Result Performing Organization Address [facility]/ZIP Co de Phone Number [place] [id number] [facility] Department [place] [address] * Basic metabolic panel (05/14/2024 4:23 AM CEREAL MILLER) [facility] Sodium 137 135 - 145 mmol/L Potassium, pl 3.6 3.3 - 4.9 mmol/L [facility] Chloride 103 97 - 110 mmol/L [facility] CO2 26 22 - 32 mmol/L [facility] Anion gap 8 2 - 15 mmol/L [facility] BUN 14 6 - 25 mg/dL [facility] Creatinine 0.69 0.60 - 1.10 mg/dL [facility] Glucose 98 70 - 199 mg/dL [facility] Comment: Interpretive Data Fasting glucose >/= 126 mg/dl is diagnostic for diabetes. Fasting is defined as no caloric intake for at least 8 hours. Fasting glucose between 100 mg/dl to 125 mg/dl is diagnostic of prediabetes. In a patient with classic symptoms of hyperglycemia or hyperglycemic crisis, a random glucose >/= 200 mg/dl is diagnostic for diabetes. In the absence of unequivocal hyperglycemia, results should be confirmed by repeat testing. The classification and Diagnosis of Diabetes Diabetes Care 2021; 46: S19-S40. Current interpretive data was last revised 2022. Calcium 8.7 8.5 - 10.3 mg/dL [facility] Blood 05/14/2024 4:23 AM CEREAL MILLER 05/14/2024 4:44 AM CEREAL MILLER Mabel Encarnacion NP LAB BLOOD ORDERABLES Final Result [facility] [address] [facility] Department [place] [address] * eGFR (05/13/2024 2:44 AM CEREAL MILLER) [facility] eGFR >90 >=60 mL/min/1. 73 m2 Comment: Interpretive Data Reference Interval Normal >/= 90 mL/min/1.73m2 Mildly decreased* 60 - 89 mL/min/1.73m2 Mildly to moderately decreased 45 - 59 mL/min/1.73m2 Moderately to severely decreased 30 - 44 mL/min/1.73m2 Severely decreased 15 - 29 mL/min/1.73m2 Kidney Failure < 15 mL/min/1.73m2 *Relative to young adult level Estimated glomerular filtration rate is determined by the 2020 CKD-EPI equation recommended by the National Kidney Foundation (A Unifying Approach to GFR Estimation: Recommendations of the NKF-ASK Task Force on Reassessing the Inclusion of Race in Diagnosing Kidney Disease, JASN 202). The CKD-EPI equation should not be used for patients with unstable renal function and has not been validated in children and those over 70. Current interpretive data was last reviewed 2021. Blood 05/13/2024 2:44 AM CEREAL MILLER 05/13/2024 3:01 AM CEREAL MILLER Mabel Encarnacion NP LAB BLOOD ORDERABLES Final Result [place] [id number] [facility] Department [place] [address] * (ABNORMAL) Differential, auto (05/13/2024 2:44 AM CEREAL MILLER) Pathologist [facility] Neutrophil abs 4.9 1.5 - 6.5 K/cumm Imm gran abs 0.0 0.0 - 0.1 K/cumm [facility] Lymphocyte abs 3.9(H) 0.8 - 3.3 K/cumm [facility] Monocyte abs 0.9(H) 0.2 - 0.8 K/cumm [facility] Eosinophil abs 0.3 0.0 - 0.5 K/cumm [facility] Basophil abs 0.1 0.0 - 0.1 K/cumm [facility] Neutrophil pct 48.4 % [facility] Comment: Interpretive Data Percent cell count reference ranges are not reported, since discordance with absolute values may lead to misinterpretation of CBC data. Current Interpretive Data was last revised on 2017. Imm gran pct 0.4 % [facility] Comment: Interpretive Data Percent cell count reference ranges are not reported, since discordance with absolute values may lead to misinterpretation of CBC data. Current Interpretive Data was last revised on 2017. Lymphocyte pct 39.0 % [facility] Comment: Interpretive Data Percent cell count reference ranges are not reported, since discordance with absolute values may lead to misinterpretation of CBC data. Current Interpretive Data was last revised on 2017. Monocyte pct 8.5 % [facility] Comment: Interpretive Data Percent cell count reference ranges are not reported, since discordance with absolute values may lead to misinterpretation of CBC data. Current Interpretive Data was last revised on 2017. Eosinophil pct 2.9 % [facility] Comment: Interpretive Data Percent cell count reference ranges are not reported, since discordance with absolute values may lead to misinterpretation of CBC data. Current Interpretive Data was last revised on 2017. Basophil pct 0.8 % [facility] Comment: Interpretive Data Percent cell count reference ranges are not reported, since discordance with absolute values may lead to misinterpretation of CBC data. Current Interpretive Data was last revised on 2017. Blood 05/13/2024 2:44 AM CEREAL MILLER 05/13/2024 3:02 AM CEREAL MILLER Mabel Encarnacion NP LAB BLOOD ORDERABLES Final Result [facility] [address] [facility] Department [place] [address] * (ABNORMAL) CBC with auto differential (05/13/2024 2:44 AM CEREAL MILLER) WBC 10.1(H) 3.8 - 9.9 K/cumm Hgb 11.0(L) 11.9 - 15.5 g/dL [facility] Hct 33.5(L) 35.6 - 45.5 % [facility] Plt 412(H) 150 - 400 K/cumm [facility] MPV 8.6(L) 9.1 - 12.3 fL [facility] RBC 3.43(L) 3.90 - 5.20 M/cumm [facility] MCV 97.7(H) 81.3 - 96.4 fL [facility] MCH 32.1 27.1 - 33.3 pg [facility] MCHC 32.8 32.3 - 35.7 g/dL [facility] RDW CV 15.6(H) 11.1 - 14.9 % [facility] RDW SD 56.3(H) 35.7 - 48.1 fL [facility] NRBC abs 0.00 0.00 - 0.01 K/cumm [facility] Blood 05/13/2024 2:44 AM CEREAL MILLER 05/13/2024 3:02 AM CEREAL MILLER Mabel Encarnacion JACKHAMMER OPERATOR LAB BLOOD ORDERABLES Final Result Performing Organization Address City/[facility]/ZIP Co de Phone Number [address] [place] [address] * Phosphorus (05/13/2024 2:44 AM CEREAL MILLER) [facility] Phosphorus, pl 4.0 2.3 - 4.5 mg/dL Blood 05/13/2024 2:44 AM CEREAL MILLER 05/13/2024 3:01 AM CEREAL MILLER Mabel Encarnacion JACKHAMMER OPERATOR LAB BLOOD ORDERABLES Final Result Performing Organization Address [facility] Co de Phone Number [address] [place] [address] * Magnesium (05/13/2024 2:44 AM CEREAL MILLER) [facility] Magnesium 1.9 1.4 - 2.5 mg/dL Blood 05/13/2024 2:44 AM CEREAL MILLER 05/13/2024 3:01 AM CEREAL MILLER Mabel Encarnacion JACKHAMMER OPERATOR LAB BLOOD ORDERABLES Final Result Performing Organization Address [facility] Co de Phone Number [address] [place] [address] * (ABNORMAL) Comprehensive metabolic panel (05/13/2024 2:44 AM CEREAL MILLER) [facility] Sodium 140 135 - 145 mmol/L Potassium, pl 3.5 3.3 - 4.9 mmol/L [facility] Chloride 105 97 - 110 mmol/L [facility] CO2 25 22 - 32 mmol/L [facility] Anion gap 10 2 - 15 mmol/L [facility] BUN 9 6 - 25 mg/dL [facility] Creatinine 0.63 0.60 - 1.10 mg/dL [facility] Glucose 96 70 - 199 mg/dL [facility] Comment: Interpretive Data Fasting glucose >/= 126 mg/dl is diagnostic for diabetes. Fasting is defined as no caloric intake for at least 8 hours. Fasting glucose between 100 mg/dl to 125 mg/dl is diagnostic of prediabetes. In a patient with classic symptoms of hyperglycemia or hyperglycemic crisis, a random glucose >/= 200 mg/dl is diagnostic for diabetes. In the absence of unequivocal hyperglycemia, results should be confirmed by repeat testing. The classification and Diagnosis of Diabetes Diabetes Care 202; 46: S19-S40. Current interpretive data was last revised 2022. Calcium 9.0 8.5 - 10.3 mg/dL [facility] Bilirubin, total 0.3 0.1 - 1.2 mg/dL [facility] Protein, pl 6.1(L) 6.5 - 8.5 g/dL [facility] Albumin 3.4(L) 3.5 - 5.0 g/dL [facility] Alk phos 78 40 - 130 Units/L [facility] ALT 35 7 - 45 Units/L [facility] AST 33 10 - 45 Units/L [facility] Blood 05/13/2024 2:44 AM CEREAL MILLER 05/13/2024 3:01 AM CEREAL MILLER us Mabel Encarnacion NP LAB BLOOD ORDERABLES Final Result [facility] [address] [facility] Department [place] [address] * Vitamin D 25 hydroxy (05/12/2024 1:13 PM CEREAL MILLER) Pathologist [facility] Vitamin D 25-OH 32.0 30.0 - 80.0 ng/mL Blood 05/12/2024 1:13 PM CEREAL MILLER 05/12/2024 1:22 PM CEREAL MILLER us Hung Gonzales MD LAB BLOOD ORDERABLES Final R esult Performing Organization Address [facility]/ZIP Co de Phone Number JEREMY [address] [facility] Department [place] [address] * Folate (05/12/2024 1:13 PM CEREAL MILLER) Folic acid >20.0 >=5.0 ng/mL Blood 05/12/2024 1:13 PM CEREAL MILLER 05/12/2024 1:22 PM CEREAL MILLER Narrative JEREMY - 05/12/2024 2:34 PM CEREAL MILLER ANTHONY, not a true stat us Hung Gonzales MD LAB BLOOD ORDERABLES Final R esult Performing Organization Address [facility] Co de Phone Number JEREMY [address] [facility] B [address]0125|[id number]|2024-07-30 11:12:00|2024-07-30 11:12:00|XMS_ITS|BKG DATRAVISON|External Medical Summaries|[id number]|" Clinical Summary Created on: July 30, 2024 Maragrita Anaya : 1980 Sex: Female Author Organization [facility] Address [address] [place] [address] Care Team Providers Care Scrap Preparer Name Role Phone Alessandro Gabriel MD Primary Care Provider [phone] Tomer Marquez MD Unavailable [phone] [facility] Unavailable Allergies Active Allergy Reactions Criticality Noted Date Comments Codeine Nitrofurantoin Swelling Medium 12/04/2022 Penicillins Swelling Medium 05/12/2024 Swelling in legs Promethazine Hives Medium 09/23/2022 Propranolol Hives Medium 09/23/2022 Sulfa (Sulfonamide Antibiotics) Hives Medium 09/14 Vancomycin Rash Medium 12/31/2020 Medications folic acid (FOLVITE) 1 mg tablet Take 1 tablet (1 mg total) by mouth daily Active potassium chloride ER (KLOR-CON) 20 mEq CR tablet Take 1 tablet (20 mEq total) by mouth daily 2 Active multivitamin capsule Take 1 capsule by mouth daily Active omeprazole (PriLOSEC) 20 mg capsule Take 1 capsule (20 mg total) by mouth daily Active acetaminophen (TYLENOL) 500 mg tablet Take 1 tablet (500 mg total) by mouth every 6 (six) hours as needed for pain Active furosemide (LASIX) 20 mg tablet Take 1 tablet (20 mg total) by mouth daily as needed (swelling) 5 tablet [address] (DEPAKOTE) 125 mg EC tabletIndicatio ns:Mood Stabilizer Take 1 tablet (125 mg total) by mouth 2 (two) times a day Active cetirizine (ZyrTEC) 10 mg tablet Take 1 tablet (10 mg total) by mouth daily as needed for allergies Active hydrOXYzine (VISTARIL) 50 mg capsule Take 1 capsule (50 mg total) by mouth 3 (three) times a day as needed for anxiety Active methocarbamoL (ROBAXIN) 500 mg tablet Take 1 tablet (500 mg total) by mouth 4 (four) times a day as needed Active traMADoL (ULTRAM) 50 mg tablet Take 1 tablet (50 mg total) by mouth every 8 (eight) hours as needed Active ALPRAZolam (XANAX) 1 mg tablet Take 1 tablet (1 mg total) by mouth 3 (three) times a day as needed for anxiety Active thiamine (VITAMIN B1) 100 mg tabletIndicatio ns:Thiamine Deficiency Take 1 tablet (100 mg total) by mouth daily 90 tablet 3 5 05/20/19 26 Active nicotine (NICODERM CQ) 21 mgIndications:S moking Cessation Place 1 patch on the skin daily 30 patch [address] (CAMPRAL) 333 mg EC tabletIndicatio ns:alcoholism Take 2 tablets (666 mg total) by mouth 3 (three) times a day 180 tablet 11 Active ibuprofen (ADVIL,MOTRIN) 200 mg tab/cap Take 3 tablet/capsule (600 mg total) by mouth every 8 (eight) hours as needed for pain Take with food, use as little as possible Active famotidine (PEPCID) 20 mg tablet Take 1 tablet (20 mg total) by mouth 2 (two) times a day as needed for heartburn or indigestion 60 tablet 5 Active chlordiazePOXID E (LIBRIUM) 25 mg capsuleIndicati ons:Alcohol Withdrawal Syndrome Take 2 capsules (50 mg total) by mouth 4 (four) times a day as needed for anxiety Use one tablet if possible to avoid oversedation, may take two if needed. Anticipate needing gradually less each day, can taper off completely. 60 capsule Active Active Problems Problem Noted Date Diagnosed Date UTI due to Klebsiella species 05/14/2024 Paresthesias 05/14/2024 Alcohol abuse with withdrawal without complicati on 05/12/2024 Syncope and collapse 02/25/2023 Sinusitis 02/25/2023 Hyponatremia 02/25/2023 Hypotension 02/25/2023 Anemia 02/25/2023 Chronic back pain 02/25/2023 Lower abdominal pain 02/25/2023 Hypokalemia 01/24/2023 Nose cellulitis 01/23/2023 Resolved Problems Problem Noted Date Diagnosed Date Resolved Date Benzodiazepine withdrawal, uncomplicated 05/17/2022 01/24/2023 ACS (acute coronary syndrome) 08/03/2021 01/24/2023 Encounters Date Type Department Care Team Description 05/12/2024 8:03 AM CEREAL MILLER - 05/14/2024 2:27 PM CEREAL [place]ILL[place] [address] Ulises Ramirez MD Nyquist, David J., MD Alcohol abuse with withdrawal without complication (HCC) (Primary Dx); Lightheadedness Discharge Disposition: Discharge to home or self care from Last 3 Months Immunizations Immunization Administration Dates Next Due Influenza, Quadrivalent, Spl it, Preservative Free, Intramuscular 02/27/2023 Surgical History Surgery Date Site/Laterality Comments TUBAL LIGATION Medical History Medical History Date Comments Hypertension Stroke (HCC) Social History Tobacco Use Types Packs/Day Years Used Date Smoking Tobacco: Former Alcohol Use Standard Drinks/Week Comments Not Currently 0 (1 standard drink = 0.6 oz pur e alcohol) [facility] Utilities Answer Date Recorded In the past 12 months has th e electric, gas, oil, or water company threatened to shut off services in your home? No 05/13/2024 Social Connection and Isolat ion Panel [NHANES] Answer Date Recorded In a typical week, how many times do you talk on the phone with family, friends, or neighbors? More than three times a week 05/13/2024 How often do you get togethe r with friends or relatives? More than three times a week 05/13/2024 How often do you attend chur ch or caodaism services? 1 to 4 times per year 05/13/2024 Do you belong to any clubs o r organizations such as jehovah's witness groups, unions, fraternal or athletic groups, or school groups? No 05/13/2024 How often do you attend meet ings of the clubs or organizations you belong to? Never 05/13/2024 Are you , , di vorced, , never , or living with a partner? Living with partner 05/13/2024 Overall Financial Resource Strain (CARDIA) Answe r Date Recorded How hard is it for you to pa y for the very basics like food, housing, medical care, and heating? Somewhat hard 05/13/2024 Hunger Vital Sign Answer Date Recorded Within the past 12 months, y ou worried that your food would run out before you got the money to buy more. Sometimes true Within the past 12 months, t he food you bought just didn't last and you didn't have money to get more. Never true PRAPARE - Transportation Answer Date Re corded In the past 12 months, has l ack of transportation kept you from medical appointments or from getting medications? No 04/18 In the past 12 months, has l ack of transportation kept you from meetings, work, or from getting things needed for daily living? No 05/13/2024 Housing Stability Vital Sign Answer Martinez e Recorded In the last 12 months, was t here a time when you were not able to pay the mortgage or rent on time? No 05/20/2022 Number of Places Lived in the Last Year Not on f ile 05/20/2022 In the last 12 months, was t here a time when you did not have a steady place to sleep or slept in a penitentiary (including now)? No 05/20/2022 Housing Stability Vital Sign Answer Martinez e Recorded In the last 12 months, was t here a time when you were not able to pay the mortgage or rent on time? No 05/13/2024 In the past 12 months, how m any times have you moved where you were living? 0 05/13/2024 At any time in the past 12 m [facility], were you homeless or living in a penitentiary (including now)? No 05/13/2024 Personal Safety Answer Date Recorded Have you ever been in or are you currently in a harmful physical or emotional relationship or is someone making you feel afraid or unsafe? Denies 05/12/2024 Comments No Sex and Gender Information Value Date Recorded Sex Assigned at Not on file Legal Sex Female 7:39 AM CEREAL MILLER Gender Identity Not on file Sexual Orientation Not on file Obstetrics History Last Filed Vital Signs Vital Sign Reading Time Taken Comments Blood Pressure 159/98 05/14/2024 11:00 AM CEREAL MILLER Pulse 107 05/14/2024 11:00 AM CEREAL MILLER Temperature 37.1 C (98.8 F) 05/14/2024 11:00 AM CEREAL MILLER Respiratory Rate 16 05/14/2024 11:0 0 AM CEREAL MILLER Oxygen Saturation 99% 05/14/2024 11: 00 AM CEREAL MILLER Inhaled Oxygen Concentration - - Weight 69.8 kg (153 lb 14.1 oz) 05/14/2024 6:16 AM CEREAL MILLER Height 162.6 cm (5' 4.02 ) 05/12/2024 1:59 PM CS T Body Mass Index 26.4 05/12/2024 1:59 PM CEREAL MILLER Plan of Treatment Health Maintenance Due Date Last Done Comments Depression Screening 1980 Hepatitis C Screening 1980 Varicella Vaccines (1 of 2 - 13+ 2-dose series) 1993 Hepatitis B Screening 1998 Regular Well Visit/Exam 18-64 1998 Breast Cancer Screening-Mammogram 08/15/2018 08/15/2017 Influenza Vaccine (#1) 2023 3, 02/12/2016, 11/23/2015, Additional history exists DTaP/Tdap/Td Vaccine (2 - Td or Tdap) 01/03/2025 01/03/2015 HPV Vaccines Aged Out No longer eligi ble based on patient's age to complete this topic Pneumococcal vaccine <65 Aged Out No longer eligible based on patient's age to complete this topic Procedures Procedure Name Priority Date/Time Associated Diagnosis Comments EGFR Routine 05/14/2024 4:23 AM CEREAL MILLER DIFFERENTIAL AUTO Routine 05/14/2024 4:2 3 AM CEREAL MILLER PHOSPHORUS Routine 05/14/2024 4:23 AM CEREAL MILLER MAGNESIUM Routine 05/14/2024 4:23 AM CEREAL MILLER BASIC METABOLIC PANEL Routine 05/14/2024 4:23 AM CEREAL MILLER CBC WITH AUTO DIFFERENTIAL Routine 05/14/2024 4:23 AM CEREAL MILLER EGFR Routine 05/13/2024 2:44 AM CEREAL MILLER DIFFERENTIAL AUTO Routine 05/13/2024 2:4 4 AM CEREAL MILLER PHOSPHORUS Routine 05/13/2024 2:44 AM CEREAL MILLER MAGNESIUM Routine 05/13/2024 2:44 AM CEREAL MILLER COMPREHENSIVE METABOLIC PANEL Routine 05/13/2024 2:44 AM CEREAL MILLER CBC WITH AUTO DIFFERENTIAL Routine 05/13/2024 2:44 AM CEREAL MILLER VITAMIN D 25 HYDROXY Timed 05/12/2024 1:13 PM CEREAL MILLER VITAMIN B12 STAT 05/12/2024 1:13 PM CEREAL MILLER FOLATE STAT 05/12/2024 1:13 PM CEREAL MILLER MRI BRAIN WO CONTRAST ED 05/12/2024 9:[address] HEAD WO CONTRAST ED 05/12/2024 7 :30 AM CEREAL MILLER TROPONIN T HIGH-SENSITIVITY 2-HOUR Timed 05/12/2024 6:41 AM CEREAL MILLER URINALYSIS, MICROSCOPIC ONLY STAT 05/12/2024 5:49 AM CEREAL MILLER DRUGS OF ABUSE SCREEN, URINE WITH REFLEX CONFIRMATION STAT 05/12/2024 5:49 AM CEREAL MILLER URINE CULTURE STAT 05/12/2024 5:49 AM CEREAL MILLER URINALYSIS AND REFLEX TO MICROSCOPIC AND CULTURE STAT 05/12/2024 5:49 AM CEREAL MILLER XR CHEST 1 VIEW ED 05/12/2024 4:33 AM CEREAL MILLER ECG 12-LEAD STAT 05/12/2024 4:26 AM CEREAL MILLER EGFR STAT 05/12/2024 4:25 AM CEREAL MILLER DIFFERENTIAL AUTO STAT 05/12/2024 4:2 5 AM CEREAL MILLER TROPONIN T HIGH-SENSITIVITY SERIES (BASELINE, 2HR, 4HR, 6HR) STAT 05/12/2024 4:25 AM CEREAL MILLER COMPREHENSIVE METABOLIC PANEL STAT 05/12/2024 4:25 AM CEREAL MILLER CBC WITH AUTO DIFFERENTIAL STAT 05/12/2024 4:25 AM CEREAL MILLER from Last 3 Months Results * eGFR (05/14/2024 4:23 AM CEREAL MILLER) eGFR >90 >=60 mL/min/1. 73 m2 Comment: Interpretive Data Reference Interval Normal >/= 90 mL/min/1.73m2 Mildly decreased* 60 - 89 mL/min/1.73m2 Mildly to moderately decreased 45 - 59 mL/min/1.73m2 Moderately to severely decreased 30 - 44 mL/min/1.73m2 Severely decreased 15 - 29 mL/min/1.73m2 Kidney Failure < 15 mL/min/1.73m2 *Relative to young adult level Estimated glomerular filtration rate is determined by the 2020 CKD-EPI equation recommended by the National Kidney Foundation (A Unifying Approach to GFR Estimation: Recommendations of the NKF-ASK Task Force on Reassessing the Inclusion of Race in Diagnosing Kidney Disease, JASN 2020). The CKD-EPI equation should not be used for patients with unstable renal function and has not been validated in children and those over 70. Current interpretive data was last reviewed 2021. Blood 05/14/2024 4:23 AM CEREAL MILLER 05/14/2024 4:44 AM CEREAL MILLER Mabel Encarnacion NP LAB BLOOD ORDERABLES Final Result [place] [id number] [facility] Department of Laboratories [place], [place] [id number] * (ABNORMAL) Differential, auto (05/14/2024 4:23 AM CEREAL MILLER) Neutrophil abs 4.1 1.5 - 6.5 K/cumm Imm gran abs 0.0 0.0 - 0.1 K/cumm [facility] Lymphocyte abs 3.5(H) 0.8 - 3.3 K/cumm [facility] Monocyte abs 0.9(H) 0.2 - 0.8 K/cumm [facility] Eosinophil abs 0.6(H) 0.0 - 0.5 K/cumm [facility] Basophil abs 0.1 0.0 - 0.1 K/cumm [facility] Neutrophil pct 45.3 % [facility] Comment: Interpretive Data Percent cell count reference ranges are not reported, since discordance with absolute values may lead to misinterpretation of CBC data. Current Interpretive Data was last revised on 2017. Imm gran pct 0.1 % [facility] Comment: Interpretive Data Percent cell count reference ranges are not reported, since discordance with absolute values may lead to misinterpretation of CBC data. Current Interpretive Data was last revised on 2017. Lymphocyte pct 37.9 % [facility] Comment: Interpretive Data Percent cell count reference ranges are not reported, since discordance with absolute values may lead to misinterpretation of CBC data. Current Interpretive Data was last revised on 2017. Monocyte pct 9.3 % [facility] Comment: Interpretive Data Percent cell count reference ranges are not reported, since discordance with absolute values may lead to misinterpretation of CBC data. Current Interpretive Data was last revised on 2017. Eosinophil pct 6.4 % [facility] Comment: Interpretive Data Percent cell count reference ranges are not reported, since discordance with absolute values may lead to misinterpretation of CBC data. Current Interpretive Data was last revised on 2017. Basophil pct 1.0 % [facility] Comment: Interpretive Data Percent cell count reference ranges are not reported, since discordance with absolute values may lead to misinterpretation of CBC data. Current Interpretive Data was last revised on 2017. Blood 05/14/2024 4:23 AM CEREAL MILLER 05/14/2024 4:44 AM CEREAL MILLER Mabel Encarnacion NP LAB BLOOD ORDERABLES Final Result [facility] [address] [facility] Department [place] [address] * (ABNORMAL) CBC with auto differential (05/14/2024 4:23 AM CEREAL MILLER) WBC 9.1 3.8 - 9.9 K/cumm Hgb 11.1(L) 11.9 - 15.5 g/dL [facility] Hct 33.4(L) 35.6 - 45.5 % [facility] Plt 415(H) 150 - 400 K/cumm [facility] MPV 8.8(L) 9.1 - 12.3 fL [facility] RBC 3.43(L) 3.90 - 5.20 M/cumm [facility] MCV 97.4(H) 81.3 - 96.4 fL [facility] MCH 32.4 27.1 - 33.3 pg [facility] MCHC 33.2 32.3 - 35.7 g/dL [facility] RDW CV 15.3(H) 11.1 - 14.9 % [facility] RDW SD 54.5(H) 35.7 - 48.1 fL [facility] NRBC abs 0.00 0.00 - 0.01 K/cumm [facility] Blood 05/14/2024 4:23 AM CEREAL MILLER 05/14/2024 4:44 AM CEREAL MILLER Mabel Encarnacion JACKHAMMER OPERATOR LAB BLOOD ORDERABLES Final Result Performing Organization Address City/[facility]/ZIP Co de Phone Number [address] [place] [address] * Phosphorus (05/14/2024 4:23 AM CEREAL MILLER) Pathologist [facility] Phosphorus, pl 4.2 2.3 - 4.5 mg/dL Blood 05/14/2024 4:23 AM CEREAL MILLER 05/14/2024 4:44 AM CEREAL MILLER Mabel Encarnacion JACKHAMMER OPERATOR LAB BLOOD ORDERABLES Final Result Performing Organization Address [facility] Co de Phone Number [address] [place] [address] * Magnesium (05/14/2024 4:23 AM CEREAL MILLER) Pathologist [facility] Magnesium 2.2 1.4 - 2.5 mg/dL Blood 05/14/2024 4:23 AM CEREAL MILLER 05/14/2024 4:44 AM CEREAL MILLER Mabel Encarnacion JACKHAMMER OPERATOR LAB BLOOD ORDERABLES Final Result Performing Organization Address [facility] Co de Phone Number [address] [place] [address] * Basic metabolic panel (05/14/2024 4:23 AM CEREAL MILLER) Pathologist [facility] Sodium 137 135 - 145 mmol/L Potassium, pl 3.6 3.3 - 4.9 mmol/L [facility] Chloride 103 97 - 110 mmol/L [facility] CO2 26 22 - 32 mmol/L [facility] Anion gap 8 2 - 15 mmol/L [facility] BUN 14 6 - 25 mg/dL [facility] Creatinine 0.69 0.60 - 1.10 mg/dL [facility] Glucose 98 70 - 199 mg/dL [facility] Comment: Interpretive Data Fasting glucose >/= 126 mg/dl is diagnostic for diabetes. Fasting is defined as no caloric intake for at least 8 hours. Fasting glucose between 100 mg/dl to 125 mg/dl is diagnostic of prediabetes. In a patient with classic symptoms of hyperglycemia or hyperglycemic crisis, a random glucose >/= 200 mg/dl is diagnostic for diabetes. In the absence of unequivocal hyperglycemia, results should be confirmed by repeat testing. The classification and Diagnosis of Diabetes Diabetes Care 2021; 46: S19-S40. Current interpretive data was last revised 2022. Calcium 8.7 8.5 - 10.3 mg/dL [facility] Blood 05/14/2024 4:23 AM CEREAL MILLER 05/14/2024 4:44 AM CEREAL MILLER Mabel Encarnacion NP LAB BLOOD ORDERABLES Final Result [facility] [address] [facility] Department [place] [address] * eGFR (05/13/2024 2:44 AM CEREAL MILLER) [facility] eGFR >90 >=60 mL/min/1. 73 m2 Comment: Interpretive Data Reference Interval Normal >/= 90 mL/min/1.73m2 Mildly decreased* 60 - 89 mL/min/1.73m2 Mildly to moderately decreased 45 - 59 mL/min/1.73m2 Moderately to severely decreased 30 - 44 mL/min/1.73m2 Severely decreased 15 - 29 mL/min/1.73m2 Kidney Failure < 15 mL/min/1.73m2 *Relative to young adult level Estimated glomerular filtration rate is determined by the 2020 CKD-EPI equation recommended by the National Kidney Foundation (A Unifying Approach to GFR Estimation: Recommendations of the NKF-ASK Task Force on Reassessing the Inclusion of Race in Diagnosing Kidney Disease, JASN 2020). The CKD-EPI equation should not be used for patients with unstable renal function and has not been validated in children and those over 70. Current interpretive data was last reviewed 2021. Blood 05/13/2024 2:44 AM CEREAL MILLER 05/13/2024 3:01 AM CEREAL MILLER Mabel Encarnacion NP LAB BLOOD ORDERABLES Final Result [place] [address] [facility] Department [place] [address] * (ABNORMAL) Differential, auto (05/13/2024 2:44 AM CEREAL MILLER) Neutrophil abs 4.9 1.5 - 6.5 K/cumm Imm gran abs 0.0 0.0 - 0.1 K/cumm [facility] Lymphocyte abs 3.9(H) 0.8 - 3.3 K/cumm [facility] Monocyte abs 0.9(H) 0.2 - 0.8 K/cumm [facility] Eosinophil abs 0.3 0.0 - 0.5 K/cumm [facility] Basophil abs 0.1 0.0 - 0.1 K/cumm [facility] Neutrophil pct 48.4 % [facility] Comment: Interpretive Data Percent cell count reference ranges are not reported, since discordance with absolute values may lead to misinterpretation of CBC data. Current Interpretive Data was last revised on 2017. Imm gran pct 0.4 % [facility] Comment: Interpretive Data Percent cell count reference ranges are not reported, since discordance with absolute values may lead to misinterpretation of CBC data. Current Interpretive Data was last revised on 2017. Lymphocyte pct 39.0 % [facility] Comment: Interpretive Data Percent cell count reference ranges are not reported, since discordance with absolute values may lead to misinterpretation of CBC data. Current Interpretive Data was last revised on 2017. Monocyte pct 8.5 % [facility] Comment: Interpretive Data Percent cell count reference ranges are not reported, since discordance with absolute values may lead to misinterpretation of CBC data. Current Interpretive Data was last revised on 2017. Eosinophil pct 2.9 % [facility] Comment: Interpretive Data Percent cell count reference ranges are not reported, since discordance with absolute values may lead to misinterpretation of CBC data. Current Interpretive Data was last revised on 2017. Basophil pct 0.8 % [facility] Comment: Interpretive Data Percent cell count reference ranges are not reported, since discordance with absolute values may lead to misinterpretation of CBC data. Current Interpretive Data was last revised on 2017. Blood 05/13/2024 2:44 AM CEREAL MILLER 05/13/2024 3:02 AM CEREAL MILLER Mabel Encarnacion NP LAB BLOOD ORDERABLES Final Result [place] [address] [facility] Department [place] [address] * (ABNORMAL) CBC with auto differential (05/13/2024 2:44 AM CEREAL MILLER) WBC 10.1(H) 3.8 - 9.9 K/cumm Hgb 11.0(L) 11.9 - 15.5 g/dL [facility] Hct 33.5(L) 35.6 - 45.5 % [facility] Plt 412(H) 150 - 400 K/cumm [facility] MPV 8.6(L) 9.1 - 12.3 fL [facility] RBC 3.43(L) 3.90 - 5.20 M/cumm [facility] MCV 97.7(H) 81.3 - 96.4 fL [facility] MCH 32.1 27.1 - 33.3 pg [facility] MCHC 32.8 32.3 - 35.7 g/dL [facility] RDW CV 15.6(H) 11.1 - 14.9 % [facility] RDW SD 56.3(H) 35.7 - 48.1 fL [facility] NRBC abs 0.00 0.00 - 0.01 K/cumm [facility] Blood 05/13/2024 2:44 AM CEREAL MILLER 05/13/2024 3:02 AM CEREAL MILLER Mabel Encarnacion JACKHAMMER OPERATOR LAB BLOOD ORDERABLES Final Result Performing Organization Address [facility] Co de Phone Number [address] [address] * Phosphorus (05/13/2024 2:44 AM CEREAL MILLER) [facility] Phosphorus, pl 4.0 2.3 - 4.5 mg/dL Blood 05/13/2024 2:44 AM CEREAL MILLER 05/13/2024 3:01 AM CEREAL MILLER Mabel Encarnacion NP LAB BLOOD ORDERABLES Final Result Performing Organization Address [facility] de Phone Number [address] [address] * Magnesium (05/13/2024 2:44 AM CEREAL MILLER) [facility] Magnesium 1.9 1.4 - 2.5 mg/dL Blood 05/13/2024 2:44 AM CEREAL MILLER 05/13/2024 3:01 AM CEREAL MILLER Mabel Encarnacion JACKHAMMER OPERATOR LAB BLOOD ORDERABLES Final Result Performing Organization Address [facility] de Phone Number [address] [address] * (ABNORMAL) Comprehensive metabolic panel (05/13/2024 2:44 AM CEREAL MILLER) [facility] Sodium 140 135 - 145 mmol/L Potassium, pl 3.5 3.3 - 4.9 mmol/L [facility] Chloride 105 97 - 110 mmol/L [facility] CO2 25 22 - 32 mmol/L [facility] Anion gap 10 2 - 15 mmol/L [facility] BUN 9 6 - 25 mg/dL [facility] Creatinine 0.63 0.60 - 1.10 mg/dL [facility] Glucose 96 70 - 199 mg/dL [facility] Comment: Interpretive Data Fasting glucose >/= 126 mg/dl is diagnostic for diabetes. Fasting is defined as no caloric intake for at least 8 hours. Fasting glucose between 100 mg/dl to 125 mg/dl is diagnostic of prediabetes. In a patient with classic symptoms of hyperglycemia or hyperglycemic crisis, a random glucose >/= 200 mg/dl is diagnostic for diabetes. In the absence of unequivocal hyperglycemia, results should be confirmed by repeat testing. The classification and Diagnosis of Diabetes Diabetes Care 202; 46: S19-S40. Current interpretive data was last revised 2022. Calcium 9.0 8.5 - 10.3 mg/dL [facility] Bilirubin, total 0.3 0.1 - 1.2 mg/dL [facility] Protein, pl 6.1(L) 6.5 - 8.5 g/dL [facility] Albumin 3.4(L) 3.5 - 5.0 g/dL [facility] [facility]ARE Alk phos 78 40 - 130 Units/L [facility] ALT 35 7 - 45 Units/L [facility] AST 33 10 - 45 Units/L [facility] Blood 05/13/2024 2:44 AM CEREAL MILLER 05/13/2024 3:01 AM CEREAL MILLER Mabel Encarnacion JACKHAMMER OPERATOR LAB BLOOD ORDERABLES Final Result [facility] [address] [facility] Department [place] [address] * Vitamin D 25 hydroxy (05/12/2024 1:13 PM CEREAL MILLER) Pathologist [facility] Vitamin D 25-OH 32.0 30.0 - 80.0 ng/mL Blood 05/12/2024 1:13 PM CEREAL MILLER 05/12/2024 1:22 PM CEREAL MILLER Hung Figueredo
--- OUTSIDE RECORDS SUMMARY | 2024-07-30 11:12 | XMS_ITS | Encounter Summary ---
Author Organization [facility] Healthcare Address [address] [place] [address] Care Team Providers Care Assisted Living Administrator Name Role Phone Alessandro Gabriel MD Primary Care Provider [phone] Tomer Marquez MD Unavailable [phone] [facility] Unavailable Encounter Details Date Type Department Care Team (Late st Contact Info) Description 04/09/2023 Community Orders [facility] EpicCare Link Alessandro Gabriel MD [address] [facility] [address] [place] [address] Social History Tobacco Use Types Packs/Day Years Used Date Smoking Tobacco: Former Alcohol Use Standard Drinks/Week Comments Not Currently 0 (1 standard drink = 0.6 oz pur e alcohol) Social Connection and Isolat ion Panel [NHANES] Answer Date Recorded In a typical week, how many times do you talk on the phone with family, friends, or neighbors? More than three times a week 05/20/2022 How often do you get togethe r with friends or relatives? More than three times a week 05/20/2022 How often do you attend chur ch or temple services? Never 05/20/2022 Do you belong to any clubs o r organizations such as confucianist groups, unions, fraternal or athletic groups, or school groups? No 05/20/2022 How often do you attend meet ings of the clubs or organizations you belong to? Never 05/20/2022 Are you , , di vorced, , never , or living with a partner? 05/20/2022 Overall Financial Resource Strain (CARDIA) Answe r Date Recorded How hard is it for you to pa y for the very basics like food, housing, medical care, and heating? Not very hard 05/20/2022 Hunger Vital Sign Answer Date Recorded Within the past 12 months, y ou worried that your food would run out before you got the money to buy more. Never true 05/21/19 23 Within the past 12 months, t he food you bought just didn't last and you didn't have money to get more. Never true 05/20/2022 PRAPARE - Transportation Answer Date Re corded In the past 12 months, has l ack of transportation kept you from medical appointments or from getting medications? No 08/2022 In the past 12 months, has l ack of transportation kept you from meetings, work, or from getting things needed for daily living? No 05/20/2022 Housing Stability Vital Sign Answer [...] place to sleep or slept in a [place] [facility] [place] (including now)? No 05/20/2022 Personal Safety Answer Date Recorded Have you ever been in or are you currently in a harmful physical or emotional relationship or is someone making you feel afraid or unsafe? 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 Gender Identity Not on file Sexual Orientation Not on file documented as of this encounter Plan of Treatment Not on file documented as of this encounter Visit Diagnoses Not on filedocumented in this encounter Care Teams Assisted Living Administrator Relationship Specialty Start Date End Date Alessandro Gabriel MD [address] [place] [address] PCP - General 07/20/20 Tomer Marquez MD [address] [facility] [place] [address] Consulting Physician Neurology 05/24/22 Sherly, Vasile Colmenares MD [address] [facility] [place] [address] Consulting Physician Neurology 05/14/24 documented as of this encounter
--- OUTSIDE RECORDS SUMMARY | 2024-07-30 11:12 | XMS_ITS | Clinical Summary ---
Author Organization [facility] Address [facility] [place] [address] Care Team Providers Care Caddy Name Role Phone Alessandro Gabriel MD Primary Care Provider [phone] Allergies Active Allergy Reactions Criticality Noted Date Comments Sulfa Antibiotics Unknown 04/05/2020 Medications ondansetron 4 MG disintegrating tablet Take 1 tablet (4 mg total) by mouth every 8 (eight) hours as needed for Nausea. 15 tablet 04/05/19 21 Active promethazine (PROMETHEGAN) [address] 1 suppository (25 mg total) rectally every 6 (six) hours as needed for Nausea. 12 each 04/05/19 21 Active Social History Tobacco Use Types Packs/Day Years Used Date Smoking Tobacco: Every Day Electronic Cigarettes Smokeless Tobacco: Never Alcohol Use Standard Drinks/Week Comments Yes 0 (1 standard drink = 0.6 oz pur e alcohol) Comments No Sex and Gender Information Value Date Recorded Sex Assigned at Not on file Legal Sex Female 7:01 PM CDT Gender Identity Not on file Sexual Orientation Not on file Last Filed Vital Signs Vital Sign Reading Time Taken Comments Blood Pressure 110/83 04/05/2020 7:43 PM FURNACE FITTER Pulse 114 04/05/2020 7:43 PM FURNACE FITTER Temperature 36.8 C (98.2 F) 04/05/2020 4:26 PM FURNACE FITTER Respiratory Rate 18 04/05/2020 7:43 PM FURNACE FITTER Oxygen Saturation 98% 04/05/2020 7:43 PM FURNACE FITTER Inhaled Oxygen Concentration - - Weight 70 kg (154 lb 5.2 oz) 04/05/2020 4:26 PM FURNACE FITTER Height 162.6 cm (5' 4 ) 04/05/2020 4:26 PM FURNACE FITTER Body Mass Index 26.49 04/05/2020 4:26 PM FURNACE FITTER Plan of Treatment Health Maintenance Due Date Last Done Comments Meningococcal Vaccine (1 - Risk 2-dose series) 1982 Annual Physical 10/27/1983 Meningococcal B Vaccine (1 o f 5 - Increased Risk) 1990 Hepatitis C 1998 Hepatitis B Vaccines (1 of 3 - 19+ 3-dose series) 10/27/1999 Pneumococcal Vaccine: Pediatrics (0 to 5 Years) and At-Risk Patients (6 to 49 Years) (1 of 2 - PCV) 10/27/1999 Mammogram Screening 2020 COVID-19 Vaccine (1 - 2023-2 5 season) 2023 DTaP, Tdap and Td Vaccines ( 2 - Td or Tdap) 01/03/2025 01/03/2015 Cervical Cancer Screening Pa p Smear (Age 30 to 64) Every 3 Years 12/11/2025 12/11/2022, 12/11/2022, 12/11/2022 Cervical Cancer Screening Pa p with HPV Testing (Age 30 to 64) Every 5 Years 12/12/2027 12/11/2022 Cervical Cancer Screening wi th HPV 12/12/2027 HPV Vaccines Aged Out No longer eligi ble based on patient's age to complete this topic RSV Immunizations Under 20 Months Aged Out No longer eligible b ased on patient's age to complete this topic Insurance [employer] Care Teams Caddy Relationship Specialty Start Date End Date Alessandro Gabriel MD [address] [facility] [address] [place] [address] PCP - General INTERNAL MEDICINE 04/03/23
--- OUTSIDE RECORDS SUMMARY | 2024-07-30 11:13 | XMS_ITS | Data Portability ---
Author Organization VALENTIN AZALEAChan Rae Address [address] [place] [address] Assessment No assessment recorded. Plan of Treatment Reminders Order Date Submit Date Provider Last Modified By Organization Details Last Modified Time Details Appointments None recorded. Lab CMP, serum or plasma 2019 [facility], [address] [place] [address], [facility] [address], [place], [address], 0 13:10:10 CBC 2019 020 [facility], [address] [facility], [address], [place], [address], 0 13:10:11 vitamin B12 + folate, serum or blood 2019 020 [facility], [address] [place] [address], [facility] [address], [place], [address], 0 13:10:11 LIBERTY (antinucl ear antibodie s) screen, serum 2019 020 [facility], [address] [facility], [address], [place], [address], 0 13:10:12 ESR (erythroc yte sedimenta tion rate), blood 2019 020 [facility], [address] [place] [address], [address], [place], [address], 0 13:10:13 vitamin D, 25-hydrox y, total, serum 2019 020 [facility] NAZ[facility], [address], [address], [place], [address], 0 06:13:14 erythrocy te sedimenta tion rate by westergre n method 2019 020 [facility] NAZARIO, [address], [address], [place], [address], 0 06:13:14 iron + total iron-bind ing capacity (TIBC), serum 2019 020 [facility] NAZARIO, [address], [address], [place], [address], 0 06:13:13 vitamin B12 + folate, serum or blood 2019 020 [facility] NAZARIO, [address], [address], [place], [address], 0 06:13:13 ferritin, serum or plasma 2019 020 [facility] NAZARIO, [address], [address], [place], [address], 0 06:13:15 culture, urine 2017 018 [facility] NAZARIO, [address], [address], [place], [address], 8 06:04:53 urinalysi s, dipstick 2017 018 angie In-Office Order, Internal Use Only DO Not Attach Compendium DO Not Attach Compendium, Do Not Delete/merge, [id number] 8 14:16:39 bacterial vaginosis + vaginitis panel, vaginal - Z11.3, Z20.0 2017 018 [facility], [address] [facility] [address], [address], [place], [address], 8 06:04:51 HSV (1+2) DNA, qual, PCR, unspecifi ed specimen - Z11.3, Z20.2 2017 018 [facility], [address] [facility] [address], [address], [place], [address], 8 06:04:52 culture, vaginal/r ectal, streptoco ccus group B - Z11.3, Z20.2 2017 018 [facility], [address] [place] [address], [address], [place], [address], 8 06:04:52 CBC 2017 018 [facility], [address], [place], [address], 8 20:09:36 TSH, ultra-sen sitive, serum 2017 018 [facility], [address], [address], [place], [address], 8 11:36:05 CMP, serum or plasma 2017 018 [facility], [address], [address], [place], [address], 8 20:09:36 HbA1c (hemoglob in A1c), blood 2017 018 [facility], [address], [address], [place], [address], 8 20:09:38 lipid panel, serum 2017 018 [facility], [address], [address], [address], 8 20:09:37 urinalysi s, dipstick 2017 018 angie In-Office Order, Internal Use Only DO Not Attach Compendium DO Not Attach Compendium, Do Not Delete/merge, [id number] 8 17:06:16 bacterial vaginosis + vaginitis panel, vaginal - Z11.3, Z20.0 2017 018 [facility], [address], [address], [place], [address], 8 06:07:49 HSV (1+2) DNA, qual, PCR, unspecifi ed specimen - Z11.3, Z20.2 2017 018 [facility], [address], [address], [place], [address], 8 06:07:49 culture, vaginal/r ectal, streptoco ccus group B - Z11.3, Z20.2 2017 018 [facility], [address], [address], [place], [address], 8 06:07:50 methicill in resistant staphyloc occus aureus, culture, nasal 2017 018 [facility], [address], [address], [place], [address], 8 10:36:41 prolactin , serum 2017 018 [facility], [facility], [address], [place], [address], 8 20:09:38 TSH + free T4, serum 2017 018 [facility] NAZARIO, [address], [address], [place], [address], 8 20:09:35 estradiol , serum 2017 018 [facility], [facility], [address], [place], [address], 8 20:09:39 lh + FSH, serum 2017 018 [facility] NAZARIO, [address], [address], [place], [address], 8 20:09:37 urinalysi s, dipstick 2016 017 angie In-Office Order, Internal Use Only DO Not Attach Compendium DO Not Attach Compendium, Do Not Delete/merge, [id number] 7 18:34:52 culture, urine 2016 017 [facility] NAZARIO, [address], [address], [place], [address], 7 06:05:58 pap, IG + HPV, cervical 2016 017 [facility], [facility], [address], [place], [address], 7 06:05:57 bacterial vaginosis + vaginitis panel, vaginal - Z11.3 2016 017 [facility] RAE, [address], [address], [place], [address], 7 20:09:26 HSV (1+2) DNA, qual, PCR, unspecifi ed specimen - Z11.3 2016 017 [facility], [address] [place], [place] [address]k[address], [address], [place], [address], 7 20:09:27 culture, vaginal/r ectal, streptoco ccus group B - Z11.3 2016 017 [facility], [address] [place] [address] Mick, [address], [place], [address], 7 20:09:29 RPR (rapid plasma reagin), serum 2016 017 [facility], [address] [place] [address], [address], [place], [address], 7 09:15:00 hsv-2 (herpes simplex virus type 2) igg Ab, serum 2016 017 [facility], [address] [place] [address], [address], [place], [address], 7 09:15:01 hepatitis panel (A+B+C), acute, serum 2016 017 [facility], [address] [place] [address], [address], [place], [address], 7 09:14:59 hepatitis B surface Ab, qualitati ve, serum 2016 017 [facility], [address] [place] [address], [address], [place], [address], 7 09:14:59 HIV 1+2 AB + HIV 1 p24 Ag, qualitati ve immunoass ay, serum 2016 017 [facility], [address], [place] [address], [place], [address], 7 09:15:00 Referral gastroent erologist referral 2017 018 juan alberto Ortiz MD, [address] [facility], [place], [address], 8 12:11:35 counselin g referral 2017 018 juan alberto Not available 8 15:18:45 Procedures None recorded. Surgeries None recorded. Imaging XR, chest, 2 view 2017 018 [facility] ([facility]), [address] [place], [address], 8 16:42:04 electroca rdiogram 2017 018 [facility] ([facility]), [address] [place], [address], 8 16:42:04 MAMMO, diagnosti c, digital, bilateral 2017 018 [facility] ([facility]), [address] [place], [address], 8 17:06:16 US, breast 2017 018 [email or web address] ([facility]), [address] [place], [address], 8 10:07:14 US, pelvis, transabdo jackeline + transvagi nal 2017 018 [email or web address] ([facility]), [address] [place], [address], 8 12:15:42 Medication Orders Pyridium 100 mg tablet 2017 018 [facility], [address] [facility], [place], [address], 0 14:06:13 dicyclomi ne 10 mg capsule 2017 018 [facility], [facility] [place], [address], 8 14:01:13 calcium 600 mg (as carbonate )-vitamin D3 20 mcg (800 unit) tablet 2017 018 [facility] [address], [address] [place] [address], [address], 0 14:04:19 multivita min tablet 2017 018 [facility] [address], [address] [place] [address], [address], 0 14:05:41 vitamin E (dl, acetate) 180 mg (400 unit) capsule 2017 018 onesin Not available 0 14:06:42 evening primrose oil 500 mg capsule 2017 018 mjonesma Not available 0 14:05:00 calcium 600 mg (as carbonate )-vitamin D3 20 mcg (800 unit) tablet 2017 018 onesma Not available 0 14:04:19 multivita min tablet 2017 018 onesma Not available 0 14:05:41 Lexapro 10 mg tablet 2017 018 [facility], [address] [place] [address], [address], 0 14:04:55 ceftriaxo ne 500 mg solution for injection [address], [facility] [place], [address], 8 15:43:38 ketorolac 10 mg tablet [address] [facility], [address] [place], [address], 8 15:45:13 hydroxyzi ne HCl 50 mg tablet 2016 017 [facility], [address] [place], [address], 0 14:05:18 triamcino lone acetonide 0.1 % topical cream [address] [facility], [address] [place], [address], 8 15:48:32 Patient TargetsNo targets recorded. Patient Instructions Encounter Date Encounter Id Patient Instructions Last Modified By Organization Details Last Modified Time 10/14/2016 [id number] endometriosis: care instructions mwasserman Not available 10/14/2016 17:11:54 anxiety disorder : care instructions mwasserman Not available 10/14/2016 17:11:54 learning about anxiety disorders mwasserman Not available 10/14/2016 17:11:54 A healthy lifestyle: care instructions [email or web address] Not available 10/14/2016 18:12:10 08/05/2017 [id number] breast lumps: ca re instructions mwasserman Not available 08/05/2017 16:05:49 bacterial vaginosis: care instructions mwasserman Not available 08/05/2017 17:06:16 vaginal yeast infection: care instructions mwasserman Not available 08/05/2017 16:05:49 learning about mood disorders mwasserman Not available 08/05/2017 16:05:49 08/20/2017 [id number] anxiety disorder : care instructions mwasserman Not available 08/21/2017 06:20:58 learning about anxiety disorders mwasserman Not available 08/21/2017 06:20:59 diverticulitis: care instructions mwasserman Not available 08/20/2017 14:00:42 learning about diverticulosis and diverticulitis mwasserman Not available 08/20/2017 14:00:42 MRSA: care instructions mwasserman Not available 08/20/2017 13:49:12 crohn's disease: care instructions mwasserman Not available 08/21/2017 06:20:59 learning about mood disorders mwasserman Not available 08/21/2017 06:20:59 Reason for Referral Counseling Referral for Depr essive disorder Referring Physician: Ike Barreto, MANAGER [employer], Encounter Date: 08/05/2017 [employer] Referral for Diverticulitis Referring Physician: Ike Barreto MANAGER [employer], Encounter Date: 08/20/2017 Results Created Date Observation Date Name Description Value Unit Range Abnormal Flag Note LastModifiedBy Organization Detail LastModifiedTime 08/21/19 18 08/20/2017 urina lysis , dipst ick Leukocytes Negati ve Not Available In-Office Order Internal Use Only DO Not Attach Compendium DO Not Attach Compendium, Do Not Delete/merge, [id number] 08/20/2017 13:26:29 08/21/19 18 08/20/2017 urina lysis , dipst ick Nitrite positi ve Not Available In-Office Order Internal Use Only DO Not Attach Compendium DO Not Attach Compendium, Do Not Delete/merge, [id number] 08/20/2017 13:26:29 08/21/19 18 08/20/2017 urina lysis , dipst ick Urobilinogen 1 Not Available In-Of fice Order Internal Use Only DO Not Attach Compendium DO Not Attach Compendium, Do Not Delete/merge, [id number] 08/20/2017 13:26:29 08/21/19 18 08/20/2017 urina lysis , dipst ick Protein Negati ve Not Available In-Office Order Internal Use Only DO Not Attach Compendium DO Not Attach Compendium, Do Not Delete/merge, [id number] 08/20/2017 13:26:29 08/21/19 18 08/20/2017 urina lysis , dipst ick pH 6.0 Not Available In-Office Order Internal Use Only DO Not Attach Compendium DO Not Attach Compendium, Do Not Delete/merge, [id number] 08/20/2017 13:26:29 08/21/19 18 08/20/2017 urina lysis , dipst ick Blood Negati ve Not Available In-Office Order Internal Use Only DO Not Attach Compendium DO Not Attach Compendium, Do Not Delete/merge, [id number] 08/20/2017 13:26:29 08/21/19 18 08/20/2017 urina lysis , dipst ick Specific [place] 1.010 Not Available In-Off ice Order Internal Use Only DO Not Attach Compendium DO Not Attach Compendium, Do Not Delete/merge, 08/20/2017 13:26:29 08/21/19 18 08/20/2017 urina lysis , dipst ick Ketone Negati ve Not Available In-Office Order Internal Use Only DO Not Attach Compendium DO Not Attach Compendium, Do Not Delete/merge, 08/20/2017 13:26:29 08/21/19 18 08/20/2017 urina lysis , dipst ick Bilirubin Negati ve Not Available In-Office Order Internal Use Only DO Not Attach Compendium DO Not Attach Compendium, Do Not Delete/merge, 08/20/2017 13:26:29 08/21/19 18 08/20/2017 urina lysis , dipst ick Glucose 100 Not Available In-Office Order Internal Use Only DO Not Attach Compendium DO Not Attach Compendium, Do Not Delete/merge, 08/20/2017 13:26:29 08/06/19 18 08/05/2017 urina lysis , dipst ick Leukocytes Negati ve Not Available In-Office Order Internal Use Only DO Not Attach Compendium DO Not Attach Compendium, Do Not Delete/merge, 08/05/2017 15:56:10 08/06/19 18 08/05/2017 urina lysis , dipst ick Nitrite negati ve Not Available In-Office Order Internal Use Only DO Not Attach Compendium DO Not Attach Compendium, Do Not Delete/merge, 08/05/2017 15:56:10 08/06/19 18 08/05/2017 urina lysis , dipst ick Urobilinogen .2 Not Available In-Of fice Order Internal Use Only DO Not Attach Compendium DO Not Attach Compendium, Do Not Delete/merge, 08/05/2017 15:56:10 08/06/19 18 08/05/2017 urina lysis , dipst ick Protein Negati ve Not Available In-Office Order Internal Use Only DO Not Attach Compendium DO Not Attach Compendium, Do Not Delete/merge, 08/05/2017 15:56:10 08/06/19 18 08/05/2017 urina lysis , dipst ick pH 7.0 Not Available In-Office Order Internal Use Only DO Not Attach Compendium DO Not Attach Compendium, Do Not Delete/merge, 08/05/2017 15:56:10 08/06/19 18 08/05/2017 urina lysis , dipst ick Blood Large Not Available In-Office Order Internal Use Only DO Not Attach Compendium DO Not Attach Compendium, Do Not Delete/merge, 08/05/2017 15:56:10 08/06/19 18 08/05/2017 urina lysis , dipst ick Specific [place] 1.010 Not Available In-Off ice Order Internal Use Only DO Not Attach Compendium DO Not Attach Compendium, Do Not Delete/merge, 08/05/2017 15:56:10 08/06/19 18 08/05/2017 urina lysis , dipst ick Ketone Negati ve Not Available In-Office Order Internal Use Only DO Not Attach Compendium DO Not Attach Compendium, Do Not Delete/merge, 08/05/2017 15:56:10 08/06/19 18 08/05/2017 urina lysis , dipst ick Bilirubin Negati ve Not Available In-Office Order Internal Use Only DO Not Attach Compendium DO Not Attach Compendium, Do Not Delete/merge, 08/05/2017 15:56:10 08/06/19 18 08/05/2017 urina lysis , dipst ick Glucose Negati ve Not Available In-Office Order Internal Use Only DO Not Attach Compendium DO Not Attach Compendium, Do Not Delete/merge, 08/05/2017 15:56:10 10/15/19 17 10/14/2016 urina lysis , dipst ick Leukocytes Negati ve Not Available In-Office Order Internal Use Only DO Not Attach Compendium DO Not Attach Compendium, Do Not Delete/merge, 10/14/2016 16:30:02 10/15/19 17 10/14/2016 urina lysis , dipst ick Nitrite negati ve Not Available In-Office Order Internal Use Only DO Not Attach Compendium DO Not Attach Compendium, Do Not Delete/merge, 10/14/2016 16:30:02 10/15/19 17 10/14/2016 urina lysis , dipst ick Urobilinogen .2 Not Available In-Of fice Order Internal Use Only DO Not Attach Compendium DO Not Attach Compendium, Do Not Delete/merge, 10/14/2016 16:30:02 10/15/19 17 10/14/2016 urina lysis , dipst ick Protein Trace Not Available In-Office Order Internal Use Only DO Not Attach Compendium DO Not Attach Compendium, Do Not Delete/merge, 10/14/2016 16:30:02 10/15/19 17 10/14/2016 urina lysis , dipst ick pH 5.5 Not Available In-Office Order Internal Use Only DO Not Attach Compendium DO Not Attach Compendium, Do Not Delete/merge, 10/14/2016 16:30:02 10/15/19 17 10/14/2016 urina lysis , dipst ick Blood Negati ve Not Available In-Office Order Internal Use Only DO Not Attach Compendium DO Not Attach Compendium, Do Not Delete/merge, 10/14/2016 16:30:02 10/15/19 17 10/14/2016 urina lysis , dipst ick Specific [place] 1.020 Not Available In-Off ice Order Internal Use Only DO Not Attach Compendium DO Not Attach Compendium, Do Not Delete/merge, 10/14/2016 16:30:02 10/15/19 17 10/14/2016 urina lysis , dipst ick Ketone Negati ve Not Available In-Office Order Internal Use Only DO Not Attach Compendium DO Not Attach Compendium, Do Not Delete/merge, 10/14/2016 16:30:02 10/15/19 17 10/14/2016 urina lysis , dipst ick Bilirubin Small Not Available In-Offic e Order Internal Use Only DO Not Attach Compendium DO Not Attach Compendium, Do Not Delete/merge, 10/14/2016 16:30:02 10/15/19 17 10/14/2016 urina lysis , dipst ick Glucose Negati ve Not Available In-Office Order Internal Use Only DO Not Attach Compendium DO Not Attach Compendium, Do Not Delete/merge, [id number] 10/14/2016 16:30:02 10/15/19 17 10/15/2016 hepat itis panel (A+B+ C), acute , serum hep A Ab, IgM NEGATI VE negati ve Not Available [facility] ([facility]) [address] [place], [address], 10/15/2016 09:14:59 10/15/19 17 10/15/2016 hepat itis panel (A+B+ C), acute , serum HBsAg screen NEGATI VE negati ve Not Available [facility] ([facility]) [address] [place], [address], 10/15/2016 09:14:59 10/15/19 17 10/15/2016 hepat itis panel (A+B+ C), acute , serum hep B core Ab, IgM NEGATI VE negati ve Not Available [facility] ([facility]) [address] [facility], [place], [address], 10/15/2016 09:14:59 10/15/19 17 10/15/2016 hepat itis panel (A+B+ C), acute , serum hep C virus Ab 0.1 S/co_ ratio 0.0-0. 9 NEGAT DANNIELLE: < 0.8 INDET ERMIN ATE: 0.8 - 0.9 POSIT DANNIELLE: > 0.9 THE CDC RECOM MENDS THAT A POSIT DANNIELLE HCV ANTIB EAMON RESUL T BE FOLLO WED UP WITH A HCV NUCLE IC ACID AMPLI FICAT ION TEST (5507 [id number]). Not Available [facility] ([facility]) [address] [place], [address], 10/15/2016 09:14:59 10/15/19 17 10/15/2016 hepat itis B surfa ce Ab, quali tativ e, serum hep B surface Ab, qual NON REACTI VE NON REACT DANNIELLE: INCON SISTE NT WITH IMMUN ITY, LESS THAN 10 MIU/M L REACT DANNIELLE: CONSI STENT WITH IMMUN ITY, GREAT ER THAN 9.9 MIU/M L Not Available [facility] ([facility]) [address] [facility], [place], [address], 10/15/2016 09:14:59 10/15/19 17 10/15/2016 RPR (rapi d plasm a reagi n), serum RPR NON REACTI VE non reacti ve Not Available [facility] ([facility]) [address] [facility], [place], [address], 10/15/2016 09:15:00 10/15/19 17 10/15/2016 HIV 1+2 AB + HIV 1 p24 Ag, quali tativ e immun oassa y, serum HIV screen 4TH generation wrfx NON REACTI VE non reacti ve Not Available [facility] ([facility]) [address] [facility], [place], [address], 10/15/2016 09:15:00 10/15/19 17 10/15/2016 hsv-2 (herp es simpl ex virus type 2) igg Ab, serum hsv 2 IgG, type spec <0.91 index 0.00-0 .90 NEGAT DANNIELLE <0.91 EQUIV OCAL 0.91 - 1.09 POSIT DANNIELLE >1.09 NOTE: NEGAT DANNIELLE INDIC ATES NO ANTIB ODIES DETEC IVAN TO HSV-2 . EQUIV OCAL MAY SUGGE ST EARLY INFEC TION. IF CLINI AYAZ APPRO PRIAT E, RETES T AT LATER DATE. POSIT DANNIELLE INDIC ATES ANTIB ODIES DETEC IVAN TO HSV-2 . Not Available [facility] ([facility]) [address] [facility], [place], [address], 10/15/2016 09:15:01 10/15/19 17 10/15/2016 pap, IG + HPV, cervi valorie diagnosis: COMMEN T NEGAT DANNIELLE FOR INTRA EPITH ELIAL LESIO N AND MALIG JUAN J . Not Available [facility] ([facility]) [address] [place], [address], 10/17/2016 06:05:57 10/15/19 17 10/15/2016 pap, IG + HPV, cervi valorie specimen adequacy: EZRA Woods SATIS FACTO RY FOR EVALU ATION . NO ENDOC ERVIC AL COMPO NENT IS IDENT IFIED . Not Available [facility] ([facility]) [address] [place], [address], 10/17/2016 06:05:57 10/15/19 17 10/15/2016 pap, IG + HPV, cervi valorie clinician provided ICD10: EZRA Woods Z20.2 Z01.4 11 R10.2 Not Available [facility] ([facility]) [address] [place], [address], 10/17/2016 06:05:57 10/15/19 17 10/15/2016 pap, IG + HPV, cervi valorie performed by: INES SAPP (ASCP ) Not Available [facility] ([facility]) [address] [place], [address], 10/17/2016 06:05:57 10/15/1910/15/2016 pap, IG + HPV, cervi valorie . . Not Available [facility] ([facility]) [address] [place], [address], 10/17/2016 06:05:57 10/15/1910/15/2016 pap, IG + HPV, cervi valorie note: EZRA Woods THE PAP SMEAR IS A SCREE RYDER TEST DESIG SAMIR TO AID IN THE DETEC TION OF HUNG LIGNA NT AND MALIG NANT CONDI TIONS OF THE UTERI NE CERVI X. IT IS NOT A DIAGN OSTIC PROCE DURE AND SHOUL D NOT BE USED THE SOLE MEANS OF DETEC TING CERVI VALORIE CANCE R. BOTH FALSE -POSI TIVE AND FALSE -NEGA TIVE REPOR TS DO OCCUR . Not Available [facility] ([facility]) [address] [place], [address], 10/17/2016 06:05:57 10/15/19 17 10/15/2016 pap, IG + HPV, cervi valorie test methodology: COMMEN T THIS LIQUI D BASED THINP REP(R ) PAP TEST WAS ZAKIA DAWSON WITH THE USE OF AN IMAGE GUIDE Clifford Johnson Not Available [facility] ([facility]) [address] [place], [address], 10/17/2016 06:05:57 10/15/19 17 10/16/2016 pap, IG + HPV, cervi valorie HPV aptima NEGATI VE negati ve THIS TEST DETEC TS FOURT EEN HIGH- RISK HPV TYPES (16/1 8/31/ 33/35 /39/4 5/ 51/52 /56/5 8/59/ 66/68 ) WITHO UT DIFFE RENTI ATION . Not Available [facility] ([facility]) [address] [place], [address], 10/17/2016 06:05:57 10/15/19 17 10/17/2016 cultu re, urine urine culture, routine FINAL REPORT Not Available [facility] ([facility]) [address] [place], [address], 10/17/2016 06:05:58 10/15/1910/17/2016 cultu re, urine result 1 COMMEN T MIXED UROGE NITAL DEAN 25,00 0-50, 000 COLON Y FORMI NG UNITS PER ML Not Available [facility] ([facility]) [address] [place], [address], 10/17/2016 06:05:58 10/15/1910/16/2016 bacte rial vagin osis + vagin itis panel , vagin al atopobium vaginae HIGH - 2 score abnormal Not Available [facility] ([facility]) [address] [place], [address], 10/17/2016 20:09:26 10/15/19 17 10/16/2016 bacte rial vagin osis + vagin itis panel , vagin al bvab 2 LOW - 0 score Not Available [facility] ([facility]) [address] [place], [address], 10/17/2016 20:09:26 10/15/19 17 10/16/2016 bacte rial vagin osis + vagin itis panel , vagin al megasphaera 1 LOW - 0 score CALCU LATE TOTAL SCORE BY IRAIS Lea THE 3 INDIV IDUAL BACTE RIAL VAGIN OSIS (BV) MARKE R SCORE S TOGET HER. TOTAL SCORE IS INTER PRETE D FOLLO WS: TOTAL SCORE 0-1: INDIC ATES THE ABSEN CE OF BV. TOTAL SCORE 2: INDET ERMIN ATE FOR BV. ADDIT IONAL CLINI VALORIE DATA SHOUL D BE EVALU ATED TO ESTAB MCKAYLA A DIAGN OSIS. TOTAL SCORE 3-6: INDIC ATES THE PRESE NCE OF BV. THIS TEST WAS DEVEL OPED AND ITS PERFO RMANC E KATHERINE CTERI STICS DETER MINED BY [email or web address]. IT HAS NOT BEEN CLEAR ED OR APPRO MELISSA BY THE FOOD AND DRUG ADMIN ISTRA TION. THE FDA HAS DETER MINED THAT SUCH CLEAR ANCE OR APPRO ALFREDO IS NOT NECES LUDY. Not Available [facility] ([facility]) [address] [facility], [place], [address], 10/17/2016 20:09:26 10/15/1910/16/2016 bacte rial vagin osis + vagin itis panel , vagin al tripp albicans, HOWIE POSITI VE negati ve abnormal Not Available [facility] ([facility]) [address] [place], [address], 10/17/2016 20:09:26 10/15/19 17 10/16/2016 bacte rial vagin osis + vagin itis panel , vagin al tripp glabrata, HOWIE POSITI VE negati ve abnormal THIS TEST WAS DEVEL OPED AND ITS PERFO RMANC E KATHERINE CTERI STICS DETER MINED BY [email or web address]. IT HAS NOT BEEN CLEAR ED OR APPRO MELISSA BY THE FOOD AND DRUG ADMIN ISTRA TION. THE FDA HAS DETER MINED THAT SUCH CLEAR ANCE OR APPRO ALFREDO IS NOT TORIE BOSTON. PUBLI SHED DATA DEMON STRAT E THAT UP TO 65% OF ESPINOZA DA GLABR MENDOZA IDENT IFIED IN CASES OF VAGIN AL ESPINOZA DIASI S HAVE DECRE ASED SUSCE PTIBI LITY TO FLUCO NAZOL E. Not Available [facility] ([facility]) [address] [address]|[id number]|2024-07-30 11:13:00|2024-07-30 11:12:00|XMS_ITS|BKG DAEMON|External Medical Summaries|[id number]|" Continuity of Care Document Created on: July 30, 2024 Margarita Anaya .[id number] : 1980 Sex: Female Author Organization [place] [facility], [facility] Address [address] [facility] [address] [place] [address] Assessment No assessment recorded. Plan of Treatment Reminders Order Date Submit Date Provider Last Modified By Organization Details Last Modified Time Details Appointments Follow Up 2024 09:45A M Alessandro Gabriel MD Not available Not available Not available Follow Up 2024 10:00A M Alessandro Gabriel MD Not available Not available Not available Lab None recorded. Referral None recorded. Procedures injection , trigger point (PROC) 2024 025 [id number] Not available 07/29/2024 17:22:51 Surgeries None recorded. Imaging XR, lumbosacr al spine, 2 or 3 view 2024 025 [email or web address] [facility], [address] [facility] [address], [address], 07/29/2024 15:35:27 Medication Orders ketorolac 10 mg tablet 2024 025 [facility], [address] [facility], [place], [address], 07/29/2024 15:32:19 Patient TargetsNo targets recorded. Patient Instructions Encounter Date Encounter Id Patient Instructions Last Modified By Organization Details Last Modified Time 07/29/2024 [id number] back care and preventing injuries: care instructions [email or web address] Not available 07/29/2024 15:32:13 I spent a total of __33____ minutes (excluding separately reportable procedure time ) in care of this patient. [email or web address] Not available 07/29/2024 17:20:12 Reason for Referral None Reported. Problems Name Problem SNOMED Code Status Onset Date Resolution Date Notes Provider Name and Address Organization Details Recorded Time Acute COVID-19 5035088731 Completed 11/09/2022 Acute COVID-19 Alessandro Gabriel MD [address] [facility] [address], [place], [address] , [facility] 3 15:53:49 Hyperten sive disorder 45546953 Active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
--- OUTSIDE RECORDS SUMMARY | 2024-07-30 11:13 | XMS_ITS | Data Portability ---
Author Organization [facility] Address [address] [place] [address] Care Team Providers Care Material Control Manager Name Role Phone ALESSANDRO QUIROZ Primary Care Provider Assessment Encounter Date Assessment Date Assessment LastModified by Organization Details LastModified Time 12/11/2022 12/11/2022 Annual gynecological exam performed. Patient will come back in a year unless there are new symptoms. [email or web address] Not available 12/11/2022 12:03:05 Plan of Treatment Reminders Order Date Submit Date Provider Last Modified By Organization Details Last Modified Time Details Appointments None recorded . Lab hbcab (hepatit is B core Ab) igm, serum 2023 [facility] (Lab), [address], [place], [address], 4 13:34:49 HBsAg (hepatit is B surface Ag), serum 2023 024 [facility] (Lab), [address], [place], [address], 4 13:34:45 hepatiti s C virus Ab, serum 2023 024 [facility] (Lab), [address], [place], [address], 4 13:34:49 HIV 1+2 AB + HIV 1 p24 Ag, qualitat hernan immunoas say, serum 2023 [facility] (Lab), [address], [place], [address], 4 13:34:46 RPR (rapid plasma reagin), serum 2023 024 [facility] (Lab), [address], [place], [address], 4 13:34:50 TSH, serum or plasma 2023 024 [facility] (Lab), [address], [place], [address], 4 13:34:49 prolacti n, serum 2023 024 [facility] (Lab), [address], [place], [address], 4 13:34:47 FSH (follicl e-stimul ating hormone) , serum 2023 024 [facility] (Lab), [address], [place], [address], 4 13:34:48 estradio l, serum 2023 024 [facility] (Lab), [address], [place], [address], 4 13:34:46 lh (luteini zing hormone) , serum 2023 024 [facility] (Lab), [address], [place], [address], 4 13:34:48 beta-HCG , quantita tive, serum or plasma 2023 024 [facility] (Lab), [address], [place], [address], 4 13:34:46 pregnanc y test, urine 2023 024 [email or web address] [address], [address], [place], [address], 4 17:11:53 hbcab (hepatit is B core Ab) igm, serum 2022 023 [facility] (Lab), [address], [place], [address], 3 20:59:28 HBsAg (hepatit is B surface Ag), serum 2022 023 [facility] (Lab), [address], [place], [address], 3 20:59:27 hepatiti s C virus Ab, serum 2022 023 [facility] (Lab), [address], [place], [address], 3 20:59:27 unlisted lab - HIV 1/2 antigen/ antibody , reflex confirma tion 2022 023 [facility] (Lab), [address], [place], [address], 3 20:59:27 RPR (rapid plasma reagin), serum 2022 023 [facility] (Lab), [address], [place], [address], 3 20:59:28 Referral None recorded . Procedures None recorded . Surgeries None recorded . Imaging US, pelvis 2023 024 [email or web address] [address], [address], [place], [address], 4 21:45:25 US, transvag inal 2023 024 [email or web address] [place], [address], [address], [place], [address], 4 21:45:25 MAMMO, diagnost ic, digital, bilatera l - left 2022 023 [email or web address] Not available 3 11:42:55 US, breast, unilater al 2022 023 [email or web address] Not available 11:42:55 Medication Orders None recorded . Patient TargetsNo targets recorded. Patient InstructionsNo instructions recorded. Reason for Referral None Reported. Results Created Date Observation Date Name Description Value Unit Range Abnormal Flag Note LastModifiedBy Organization Detail LastModifiedTime 12/12/1912/11/2022 HEPAT ITIS C ANTIB EAMON SCREE N, REFLE X TO CONFI RMATI ON hepatitis C antibody Non-re active non-re active Antib odies to HCV Not Detec mckenzie, does not exclu de the possi bilit y of expos ure to HCV. Not Available [facility] (Lab) [address], [place], [address], 12/13/2022 20:59:27 12/12/1912/11/2022 HIV 1/2 ANTIG EN/AN TIBOD Y, REFLE X CONFI RMATI ON HIV antigen/anti body Nonrea ctive nonrea ctive HIV-1 antig en and HIV-1 /HIV- 2 antib odies were not detec mckenzie. No labor atory evide nce of HIV infec tion. Not Available [facility] (Lab) [address], [place], [address], 12/13/2022 20:59:27 12/12/1912/11/2022 HEPAT ITIS B SURFA CE ANTIG EN hepatitis B surface antigen Non-re active non-re active This assay was perfo rmed using [employer] ratio n reage nts and test kits. Value s obtai adria with other assay metho ds or kits canno t be used inter sterling eably . Not Available [facility] (Lab) [address], [place], [address], 12/13/2022 20:59:27 12/12/19 23 12/11/2022 RPR SCREE N/REF CRYSTAL TITER /FTA RPR screen Nonrea ctive nonrea ctive Not Available [facility] (Lab) [address], [place], [address], 12/13/2022 20:59:28 12/12/19 23 12/11/2022 HEPAT ITIS B CORE, IGM hepatitis B core IgM antibody Negati ve negati ve Not Available [facility] (Lab) [address], [place], [address], 12/13/2022 20:59:28 12/12/19 23 12/11/2022 IMAGE GUIDE D PAP AND HPV REGAR DLESS image guided Pap, HPV regardless of Pap result SEE RESULT S BELOW CASE REPOR T: Cytol ogy Gynec ologi valorie Repor t Case: [id number] Autho rircih g Provi skylar: Brianna Stack, ESDRAS Colle cted: 12/11 1316 Order ing Locat ion: [place] Path[facility] Recei tia: 12/12 0925 First Scree n: Anita Black, CT Speci men: Scree boni Pap - Image d, Cervi x STATE MENT OF ADEQU ACY: Satis facto ry for evalu ation Trans forma tion zone compo nent prese nt FINAL DIAGN OSIS: Negat hernan for Intra epith elial Rex mullins or Janes sarah (NIL) . Elect alvino grove d by Anita Black, CT on 2022 at 10:20 AM ----- ----- ----- ----- ----- ----- ----- ----- ----- ----- ----- ----- ----- ----- ----- ----- ----- ---- HPV RESUL TS: HPV mRNA E6/E7 : No HPV mRNA Detec mckenzie NOTE: This high risk HPV mRNA assay detec ts fourt een high- risk HPV types (16, 18, 31, 33, 35, 39, 45, 51, 52, 56, 58, 59, 66, 68) witho ut diffe renti ation . COMME NT: This speci men was revie wed by a Cytot echno logis t and/o r Patho logis t (as indic ated in this repor t) after evalu ation using the Thinp rep Imagi ng Syste m. [facility]IE INFOR MATIO N: Menst rual Statu s: LMP (if appli cable ): Clini valorie Histo ry/Pr eviou s Pap: Type of Neopl rajat (if appli cable ): Signi fican t Clini valorie Findi ngs: Other Histo ry: Hormo fausto (if appli cable ): PAP EDUCA ALANA L NOTE: The Pap Test is a scree boni test with an inher ent false negat hernan rate. Liqui d-bas ed sampl ing may decre ase, but will not elimi ab, false negat hernan resul ts. A negat hernan resul t does not precl ude the prese nce and/o r devel opmen t of disea se, since the prese nce of abnor mal cells in the sampl e depen ds on the locat ion of the lesio n and sampl ing techn ique. Devika nued regul ar scree boni is the best metho d of cance r preve ntion . If repor mckenzie cytol ogic findi ng do not corre late with physi valorie and/o r histo rical findi ngs, furth er inves tigat ion is recom rian d, as clini robin gomez nted. Not Available [facility] (Lab) [address], [place], [address], 12/16/2022 11:24:14 12/12/19 23 12/11/2022 TRICH OMONA S VAGIN MARILIN (RRNA ) trichomonas vaginalis ribosomal RNA (rrna) Negati ve negati ve Not Available [facility] (Lab) [address], [place], [address], 12/16/2022 11:24:15 12/12/19 23 12/11/2022 CT/GC (DIANNE) , THINP REP VIAL chlamydia trachomatis, PCR Negati ve negati ve Not Available [facility] (Lab) [address], [place], [address], 12/16/2022 11:24:15 12/12/19 23 12/11/2022 CT/GC (DIANNE) , THINP REP VIAL neisseria gonorrhoeae, PCR Negati ve negati ve Not Available [facility] (Lab) [address], [place], [address], 12/16/2022 11:24:15 09/22/19 24 09/22/2023 CBC W/DIF F WBC 5.2 10'3/ uL 3.5-10 .5 Not Available [facility] (Lab) [address], [place], [address], 09/23/2023 06:33:00 09/22/19 24 09/22/2023 CBC W/DIF F RBC 3.62 10'6/ uL (based on docume nted legal sex) 3.80-5 .20 low Not Available [facility] (Lab) [address], [place], [address], 09/23/2023 06:33:00 09/22/19 24 09/22/2023 CBC W/DIF F HGB 11.8 g/dL (based on docume nted legal sex) 11.6-1 5.4 Not Available [facility] (Lab) [address], [place], [address], 09/23/2023 06:33:00 09/22/19 24 09/22/2023 CBC W/DIF F HCT 35.6 % (based on docume nted legal sex) 34.0-4 5.0 Not Available [facility] (Lab) [address], [place], [address], 09/23/2023 06:33:00 09/22/19 24 09/22/2023 CBC W/DIF F MCV 98.3 fL 80.0-9 9.0 Not Available [facility] (Lab) [address], [place], [address], 09/23/2023 06:33:00 09/22/19 24 09/22/2023 CBC W/DIF F MCH 32.6 pg 27.0-3 4.0 Not Available [facility] (Lab) [address], [place], [address], 09/23/2023 06:33:00 09/22/19 24 09/22/2023 CBC W/DIF F MCHC 33.1 g/dL 32.0-3 5.5 Not Available [facility] (Lab) [address], [place], [address], 09/23/2023 06:33:00 09/22/19 24 09/22/2023 CBC W/DIF F RDW 13.7 % 11.0-1 5.0 Not Available [facility] (Lab) [address], [place], [address], 09/23/2023 06:33:00 09/22/19 24 09/22/2023 CBC W/DIF F plt 370 10'3/ uL 150-40 0 Not Available [facility] (Lab) [address], [place], [address], 09/23/2023 06:33:00 09/22/19 24 09/22/2023 CBC W/DIF F MPV 9.8 fL 8.8-12 .1 Not Available [facility] (Lab) [address], [place], [address], 09/23/2023 06:33:00 09/22/19 24 09/22/2023 CBC W/DIF F NRBC's 0.0 % 0.0 Not Available [facility] (Lab) [address], [place], [address], 09/23/2023 06:33:00 09/22/19 24 09/22/2023 CBC W/DIF F absolute NRBCs 0.0 10'3/ uL no refere nce range establ ished Not Available [facility] (Lab) [address], [place], [address], 09/23/2023 06:33:00 09/22/19 24 09/22/2023 CBC W/DIF F neutrophils 30.3 % 34.0-7 3.0 low Not Available [facility] (Lab) [address], [place], [address], 09/23/2023 06:33:00 09/22/19 24 09/22/2023 CBC W/DIF F lymphocytes 53.2 % 15.0-5 0.0 high Not Available [facility] (Lab) [address], [place], [address], 09/23/2023 06:33:00 09/22/19 24 09/22/2023 CBC W/DIF F monocytes 10.0 % 1.0-15 .0 Not Available [facility] (Lab) [address], [place], [address], 09/23/2023 06:33:00 09/22/19 24 09/22/2023 CBC W/DIF F eosinophils 5.0 % 0.0-8. 0 Not Available [facility] (Lab) [address], [place], [address], 09/23/2023 06:33:00 09/22/19 24 09/22/2023 CBC W/DIF F basophils 1.3 % 0.0-2. 0 Not Available [facility] (Lab) [address] [place], [address], 09/23/2023 06:33:00 09/22/19 24 09/22/2023 CBC W/DIF F immature granulocytes 0.2 % no define d refere nce range Not Available [facility] (Lab) [address], [place], [address], 09/23/2023 06:33:00 09/22/19 24 09/22/2023 CBC W/DIF F absolute neutrophils 1.6 10'3/ uL 1.5-8. 0 Not Available [facility] (Lab) [address], [place], [address], 09/23/2023 06:33:00 09/22/19 24 09/22/2023 CBC W/DIF F absolute lymphocytes 2.8 10'3/ uL 1.0-4. 0 Not Available [facility] (Lab) [address], [place], [address], 09/23/2023 06:33:00 09/22/19 24 09/22/2023 CBC W/DIF F absolute monocytes 0.5 10'3/ uL 0.2-1. 0 Not Available [facility] (Lab) [address], [place], [address], 09/23/2023 06:33:00 09/22/19 24 09/22/2023 CBC W/DIF F absolute eosinophils 0.3 10'3/ uL 0.0-0. 6 Not Available [facility] (Lab) [address], [place], [address], 09/23/2023 06:33:00 09/22/19 24 09/22/2023 CBC W/DIF F absolute basophils 0.1 10'3/ uL 0.0-0. 3 Not Available [facility] (Lab) [address], [place], [address], 09/23/2023 06:33:00 09/22/19 24 09/22/2023 CBC W/DIF F absolute immature granulocytes 0.0 10'3/ uL 0.00-0 .10 024 4:20 AM: P indic ates parti al resul ts on a panel have been relea sed. Addit ional resul ts will ucheo w. 024 4:20 AM: This resul t has been final verif ied. No addit ional or sterling ed resul ts are expec mckenzie. Not Available [facility] (Lab) [address], [place], [address], 09/23/2023 06:33:00 09/22/19 24 09/22/2023 TYPE/ RH/SC REEN ABO/Rh type O POS Not Available [facility] (Lab) [address], [place], [address], 09/23/2023 06:33:01 09/22/19 24 09/22/2023 TYPE/ RH/SC REEN antibody screen NEG Not Available [facility] (Lab) [address], [place], [address], 09/23/2023 06:33:01 09/22/19 24 09/22/2023 TYPE/ RH/SC REEN exp date 2023 23:59 Not Available [facility] (Lab) [address], [place], [address], 09/23/2023 06:33:01 09/22/19 24 09/22/2023 CMP(C OMPRE HENSI VE METAB OLIC PANEL ) sodium 139 mmol/ L 133-14 6 Not Available [facility] (Lab) [address] [place], [address], 09/23/2023 06:33:01 09/22/19 24 09/22/2023 CMP(C OMPRE HENSI VE METAB OLIC PANEL ) potassium 4.0 mmol/ L 3.5-5. 1 Not Available [facility] (Lab) [address] [place], [address], 09/23/2023 06:33:01 09/22/19 24 09/22/2023 CMP(C OMPRE HENSI VE METAB OLIC PANEL ) chloride 104 mmol/ L 98-107 Not Available [facility] (Lab) [address], [place], [address], 09/23/2023 06:33:01 09/22/19 24 09/22/2023 CMP(C OMPRE HENSI VE METAB OLIC PANEL ) carbon dioxide 28 mmol/ L 21-31 Not Available [facility] (Lab) [address], [place], [address], 09/23/2023 06:33:01 09/22/19 24 09/22/2023 CMP(C OMPRE HENSI VE METAB OLIC PANEL ) anion gap 7 mmol/ L 4-13 Not Available [facility] (Lab) [address], [place], [address], 09/23/2023 06:33:01 09/22/19 24 09/22/2023 CMP(C OMPRE HENSI VE METAB OLIC PANEL ) blood urea nitrogen 6 mg/dL 7-25 low Not Available [facility] (Lab) [address], [place], [address], 09/23/2023 06:33:01 09/22/19 24 09/22/2023 CMP(C OMPRE HENSI VE METAB OLIC PANEL ) creatinine 0.68 mg/dL 0.60-1 .30 Not Available [facility] (Lab) [address], [place], [address], 09/23/2023 06:33:01 09/22/19 24 09/22/2023 CMP(C OMPRE HENSI VE METAB OLIC PANEL ) egfrcr (CKD-epi 2020) >90 mL/mi n/1.7 3_m2 >=60 Not Available [facility] (Lab) [address], [place], [address], 09/23/2023 06:33:01 09/22/19 24 09/22/2023 CMP(C OMPRE HENSI VE METAB OLIC PANEL ) calcium 9.0 mg/dL 8.3-10 .5 Not Available [facility] (Lab) [address], [place], [address], 09/23/2023 06:33:01 09/22/19 24 09/22/2023 CMP(C OMPRE HENSI VE METAB OLIC PANEL ) glucose 93 mg/dL 70-100 Not Available [facility] (Lab) [address], [place], [address], 09/23/2023 06:33:01 09/22/19 24 09/22/2023 CMP(C OMPRE HENSI VE METAB OLIC PANEL ) protein, total 6.6 g/dL 6.4-8. 3 Not Available [facility] (Lab) [address], [place], [address], 09/23/2023 06:33:01 09/22/19 24 09/22/2023 CMP(C OMPRE HENSI VE METAB OLIC PANEL ) albumin 4.0 g/dL 3.5-5. 0 Not Available [facility] (Lab) [address], [place], [address], 09/23/2023 06:33:01 09/22/19 24 09/22/2023 CMP(C OMPRE HENSI VE METAB OLIC PANEL ) ALT 12 units /L 9-43 Not Available [facility] (Lab) [address], [place], [address], 09/23/2023 06:33:01 09/22/19 24 09/22/2023 CMP(C OMPRE HENSI VE METAB OLIC PANEL ) alkaline phosphatase 70 units /L 34-104 Not Available [facility] (Lab) [address] [place], [address], 09/23/2023 06:33:01 09/22/19 24 09/22/2023 CMP(C OMPRE HENSI VE METAB OLIC PANEL ) AST 12 units /L 13-39 low Not Available [facility] (Lab) [address] [place], [address], 09/23/2023 06:33:01 09/22/19 24 09/22/2023 CMP(C OMPRE HENSI VE METAB OLIC PANEL ) bilirubin, total 0.3 mg/dL 0.2-1. 2 Not Available [facility] (Lab) [address], [place], [address], 09/23/2023 06:33:01 09/22/19 24 09/22/2023 BHCG, QUANT ITATI VE B-HCG <0.2 mIU/m L This assay was perfo rmed using [employer] n reage nts and test kits. Value s obtai daria with other assay metho ds or kits canno t be used inter sterling eably . Refer ence Range s: Non-p regna nt, preme nopau jovon women : 0.0-5 .3 mIU/m L Postm enopa usal women : 0.0-7 .0 mIU/m L Rosita l Pregn avtar: Gesta alana l Age bHCG Conc. - mIU/m L 3 Weeks 5.8 - 71.7 4 Weeks 9.5 - 750 5 Weeks 217-7 138 6 Weeks 158 - 31,79 5 7 Weeks 3,697 - 162,5 63 8 Weeks 32,06 5 - 149,5 71 9 Weeks 63,80 3 - 151,4 10 10 Weeks 46,50 9 - 186,9 77 12 Weeks 27,83 2 - 210,6 12 14 Weeks 13,95 0 - 62,53 0 15 Weeks 12,03 9 - 70,97 1 16 Weeks 9,040 - 56,45 1 17 Weeks 8,175 - 55,86 8 18 Weeks 8,099 - 58,17 6 Not Available [facility] (Lab) [address], [place], [address], 09/23/2023 06:33:02 10/07/19 24 10/07/2023 HEPAT ITIS B SURFA CE ANTIG EN hepatitis B surface antigen Non-re active non-re active This assay was perfo rmed using [employer] n reage nts and test kits. Value s obtai adria with other assay metho ds or kits canno t be used inter sterling eably . Not Available [facility] (Lab) [address], [place], [address], 10/08/2023 13:34:45 10/07/19 24 10/07/2023 HIV 1/2 ANTIG EN/AN TIBOD Y, REFLE X CONFI RMATI ON HIV antigen/anti body Nonrea ctive nonrea ctive HIV-1 antig en and HIV-1 /HIV- 2 antib odies were not detec mckenzie. No labor atory evide nce of HIV infec tion. Not Available [facility] (Lab) [address], [place], [address], 10/08/2023 13:34:45 10/07/19 24 10/07/2023 BHCG, QUANT ITATI VE B-HCG <0.2 mIU/m L This assay was perfo rmed using [employer] ratio n reage nts and test kits. Value s obtai adria with other assay metho ds or kits canno t be used inter sterling eably . Refer ence Range s: Non-p regna nt, preme nopau jovon women : 0.0-5 .3 mIU/m L Postm enopa usal women : 0.0-7 .0 mIU/m L Rosita l Pregn avtar: Gesta alana l Age bHCG Conc. - mIU/m L 3 Weeks 5.8 - 71.7 4 Weeks 9.5 - 750 5 Weeks 217-7 138 6 Weeks 158 - 31,79 5 7 Weeks 3,697 - 162,5 63 8 Weeks 32,06 5 - 149,5 71 9 Weeks 63,80 3 - 151,4 10 10 Weeks 46,50 9 - 186,9 77 12 Weeks 27,83 2 - 210,6 12 14 Weeks 13,95 0 - 62,53 0 15 Weeks 12,03 9 - 70,97 1 16 Weeks 9,040 - 56,45 1 17 Weeks 8,175 - 55,86 8 18 Weeks 8,099 - 58,17 6 Not Available [facility] (Lab) [address], [place], [address], 10/08/2023 13:34:46 10/07/19 24 10/07/2023 ESTRA DIOL estradiol 342.0 pg/mL This assay was perfo rmed using [employer] reage nts and test kits. Value s obtai adria with other assay metho ds or kits canno t be used inter [facility] . Femal e Estra diol Range s: Folli cular phasE 12.4- 233 pg/mL Ovula tion phasE 41.0- 398 pg/mL Lutea l phasE 22.3- 341 pg/mL Postm enopa usal <5-13 8 pg/mL Healt hy Pregn ant Women 1st Trime ster 154-3 243 pg/mL 2nd Trime ster 1561- 53664 pg/mL 3rd Trime ster 8525- >3000 0 pg/mL Not Available [facility] (Lab) [address] [place], [address], 10/08/2023 13:34:46 10/07/19 24 10/07/2023 PROLA CTIN prolactin, total 31.40 NG/mL 4.79-2 3.30 high This assay was perfo rmed using [employer] n reage nts and test kits. Value s obtai adria with other assay metho ds or kits canno t be used inter [facility] . Not Available [facility] (Lab) [address] [place], [address], 10/08/2023 13:34:47 10/07/19 24 10/07/2023 LH (LUTE NIZIN G HORMO NE) LH 54.4 mIU/m L This assay was perfo rmed using [employer] n reage nts and test kits. Value s obtai adria with other assay metho ds or kits canno t be used inter [facility] . Femal es Mid-F ollic ular: 2.4-1 2.6 mIU/m L Mid-C ycle: 14.0- 95.6 mIU/m L Mid-L uteal : 1.0-1 1.4 mIU/m L Postm enopa use: 7.7-5 8.5 mIU/m L Not Available [facility] (Lab) [address] [place], [address], 10/08/2023 13:34:47 10/07/19 24 10/07/2023 FSH FSH 9.1 mIU/m L This assay was perfo rmed using [employer] n reage nts and test kits. Value s obtai adria with other assay metho ds or kits canno t be used inter sterling eably . Femal es Folli cular : 3.5-1 2.5 mIU/m L Ovula tion: 4.7-2 1.5 mIU/m L Lutea l: 1.7-7 .7 mIU/m L Postm enopa use: 25.8- 134.8 mIU/m L Not Available [facility] (Lab) [address], [place], [address], 10/08/2023 13:34:48 10/07/19 24 10/07/2023 HEPAT ITIS C ANTIB EAMON SCREE N, REFLE X TO CONFI RMATI ON hepatitis C antibody Non-re active non-re active Antib odies to HCV Not Detec mckenzie, does not exclu de the possi bilit y of expos ure to HCV. Not Available [facility] (Lab) [address], [place], [address], 10/08/2023 13:34:48 10/07/19 24 10/07/2023 TSH, REFLE X FREE T4 TSH 3.33 uIU/m L 0.30-5 .33 Not Available [facility] (Lab) [address], [place], [address], 10/08/2023 13:34:49 10/07/19 24 10/07/2023 HEPAT ITIS B CORE, IGM hepatitis B core IgM antibody Non-re active non-re active IgM anti- HBc not detec mckenzie. Does not exclu de the possi bilit y of expos ure to or infec tion with HBV. Not Available [facility] (Lab) [address], [place], [address], 10/08/2023 13:34:49 10/07/19 24 10/07/2023 RPR SCREE N, REFLE X TITER /CONF IRMAT ION RPR screen Nonrea ctive nonrea ctive Not Available [facility] (Lab) [address], [place], [address], 10/08/2023 13:34:50 10/07/19 24 10/07/2023 CT/GC AND TRICH OMONA S VAGIN MARILIN (RRNA ), URINE chlamydia trachomatis, PCR Negati ve negati ve Not Available [facility] (Lab) [address], [place], [address], 10/08/2023 19:25:08 10/07/19 24 10/07/2023 CT/GC AND TRICH OMONA S VAGIN MARILIN (RRNA ), URINE neisseria gonorrhoeae, PCR Negati ve negati ve Not Available [facility] (Lab) [address], [place], [address], 10/08/2023 19:25:08 10/07/19 24 10/07/2023 CT/GC AND TRICH OMONA S VAGIN MARILIN (RRNA ), URINE trichomonas vaginalis ribosomal RNA (rrna) Negati ve negati ve Not Available [facility] (Lab) [address], [place], [address], 10/08/2023 19:25:08 10/07/19 24 10/07/2023 pregn avtar test, urine HCG negati ve Not Available [facility] [address], [place], [address], 10/07/2023 17:08:59 12/27/19 23 12/26/2022 MAMMO , diagn ostic , digit al, bilat eral No observ ation record ed. [facility] [address], [place], [address], 12/30/2022 10:57:34 09/29/19 24 09/29/2023 US, pelvi s No observ ation record ed. [email or web address] [place] [address], [place], [address], 09/29/2023 18:24:12 09/29/19 24 09/29/2023 US, trans vagin al No observ ation record ed. [email or web address] [place] [address], [place], [address], 09/29/2023 18:24:02 09/29/19 24 09/29/2023 US, pelvi s No observ ation record ed. MENDY [address], [place], [address], 10/09/2023 16:40:15 Result Notes None recorded. Problems Name Problem SNOMED Code Status Onset Date Resolution Date Notes Provider Name and Address Organization Details Recorded Time Mass of left breast [id number] Active 2018 Mass in the left breast;Rec orded Elsewhere: No Locatio n: [facility] Cande rce: EHR Chroni c: N Practice ID: [id number] Billa ble Time: 01:00:00 PM Not Available [facility] 21:26:37 Problem Notes None recorded. Procedures Surgical History Date Name Laterality Status Provider Name and Address Organization Details Recorded Time 08/13/[address] segment monitoring completed Awilda Martinez [facility] 01/27/2023 09:40:20 01/14/20 15 section completed Awilda Martinez [facility] 01/27/2023 09:39:35 03/17/19 15 Tubal Ligation completed Sandra Rodríguez [facility] 10/07/2023 16:55:48 03/17/19 09 splenectomy completed Awilda Martinez [facility] 01/27/2023 09:40:49 03/17/19 06 cholecystectomy completed Awilda Juan [facility] 01/27/2023 09:39:14 07/11/19 00 section completed Awilda Martinez [facility] 01/27/2023 09:39:29 03/17/18 95 termination of completed Awilda Martinez [facility] 01/27/2023 09:39:47 colposcopy completed Sandrachristiano Rodríguez [facility] 10/07/2023 16:56:15 Imaging Results Imaging Date Name Status LastModified by Organization Details LastModified Time 12/26/2022 MAMMO, diagnostic, digital, bilateral completed [facility] [address], [place], [address], 12/30/2022 10:57:34 09/29/2023 US, pelvis completed [email or web address] [place] [id number], [place], [address], 09/29/2023 18:24:12 09/29/2023 US, transvaginal completed [email or web address] [id number]|2024-07-30 11:13:00|2024-07-30 11:13:00|XMS_ITS|BKG DAEMON|External Medical Summaries|[id number]|" Clinical Summary Created on: July 30, 2024 Margarita Washington : 1980 Sex: Female Author Organization [facility] Address [address] [place] [address] Care Team Providers Care Material Control Manager Name Role Phone Alessandro Quiroz MD Primary Care Provider Source Comments [facility],non-owned Affiliates and Associated Physician Practices [facility] consisting of ambulatory clinics and hospital sitesin [place], [place], [place] and [place]. This disclosure is being madepursuant to the Care Everywhere program and may not contain all information available regarding this patient. Last updated 17.[facility] Allergies Active Allergy Reactions Criticality Noted Date Comments Alkylamines Itching High 11/13/2021 Cannabinoids Other 11/06/2021 Codeine Itching,Other Medium 11/06/2021 Promethazine Other 11/06/2021 Propranolol Other 11/06/2021 Sulfa Drugs Other,Unknown 04/05/2020 Vancomycin Rash,Other Medium 12/31/2020 Medications * Be aware that medications may not be up to date on this document. Alwaysverify current medications with the patient. famotidine (Pepcid) 20 MG tablet Take 20 mg by mouth 2 times daily 2 Active hydroCHLOROthi azide (Hydrodiuril) 12.5 MG TAKE 1 TABLET BY MOUTH ONCE DAILY IN THE MORNING 2 Active folic acid (Folvite) 1 MG tablet folic acid 1 mg tablet TAKE 1 TABLET BY MOUTH ONCE DAILY Active ergocalciferol (Drisdol) 1.25 MG (64626 UT) capsule ergocalciferol (vitamin D2) 1,250 mcg (50,000 unit) capsule TAKE 1 CAPSULE BY MOUTH ONCE A WEEK 2 Active potassium chloride ER (Klor-Con) 10 MEQ tablet Take 1 tablet by mouth once daily with food 2 Active amitriptyline (Elavil) 25 MG tablet Take 25 mg by mouth at bedtime 2 Active cloNIDine (Catapres) 0.1 MG tablet 1 tablet 2 Active atenolol (Tenormin) 25 MG tablet Take 25 mg by mouth once daily 2 Active ferrous sulfate 325 (65 FE) MG tablet ferrous sulfate 325 mg (65 mg iron) tablet Active traZODone (Desyrel) 50 MG tablet trazodone 50 mg tablet TAKE 1 TABLET BY MOUTH ONCE DAILY AT BEDTIME 2 Active omeprazole (PriLOSEC) 20 MG capsule omeprazole 20 mg capsule,delayed release TAKE 1 TABLET BY MOUTH ONCE DAILY 30 MINUTES BEFORE MORNING MEALS. Active ALPRAZolam (Xanax) 1 MG tablet Take 1 mg by mouth 3 times daily as needed 2 Active ondansetron, disintegrating , (Zofran ODT) 4 MG tablet ondansetron 4 mg disintegrating tablet Active buPROPion XL 24hr (Wellbutrin-XL ) 300 MG tablet every 24 hours Activ e fluticasone propionate (Flonase) 50 MCG/ACT nasal spray USE 1 SPRAY(S) IN EACH NOSTRIL TWICE DAILY 2 Active cetirizine (ZyrTEC) 10 MG tablet cetirizine 10 mg tablet Active multivitamins (One A Day) capsule Take 1 capsule by mouth once daily Active Active Problems Patient Care Coordination No te Formatting of this note migh t be different from the original. 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 Gender Identity Not on file Sexual Orientation Not on file Last Filed Vital Signs Vital Sign Reading Time Taken Comments Blood Pressure 130/84 12/25/2021 9:12 AM CDT Pulse 83 12/25/2021 9:12 AM CDT Temperature - - Respiratory Rate - - Oxygen Saturation 96% 12/25/2021 9:12 AM CDT Inhaled Oxygen Concentration - - Weight 71.2 kg (157 lb) 12/25/2021 9:12 AM CDT Height 162.6 cm (5' 4 ) 12/25/2021 9:12 AM CDT Body Mass Index 26.95 12/25/2021 9:12 AM CDT Plan of Treatment Health Maintenance Due Date Last Done Comments LIPID TESTING 1980 PAP SMEAR 1980 HIV SCREENING 10/27/1995 HEPATITIS C SCREENING 10/22/1998 DTAP/TDAP/TD VACCINES (1 - Tdap) 10/27/1999 HEPATITIS B VACCINE (1 of 3 - 19+ 3-dose series) 10/27/1999 MAMMOGRAM 08/25/2020 08/25/2018 SCREENING FOR DIABETES 11/13/2021 COVID-19 VACCINE (1 - 2023-2 5 season) 2023 DEPRESSION SCREENING 03/17/2024 INFLUENZA VACCINE (Season Ended) 2024 12/28/19 15 ZOSTER VACCINE (1 of 2) 2030 HIB VACCINE Aged Out No longer eligi ble based on patient's age to complete this topic HPV VACCINE Aged Out No longer eligi ble based on patient's age to complete this topic MENINGOCOCCAL (Group B) VACC INE SHARED DECISION-MAKING Aged Out No longer eligibl e based on patient's age to complete this topic MENINGOCOCCAL GROUPS A/C/Y/W VACCINE Aged Out No longer eligible b ased on patient's age to complete this topic PNEUMOCOCCAL VACCINE Aged Out No long er eligible based on patient's age to complete this topic Procedures Procedure Name Priority Date/Time Associated Diagnosis Comments MM OUTSIDE MAMMOGRAM Routine 08/25/2018 10:08 AM CDT Abnormal mammogram from Last 3 Months or Most Recently Relevant to Health Maintenance Results * MM OUTSIDE MAMMO FILM READ (08/25/2018 10:08 AM CDT) Anatomical Region Laterality Modality Other 08/26/2018 11:5 5 AM CDT Impressions 08/26/2018 12:03 PM CDT IMPRESSION: Previously biopsied fibroadenoma within the left breast has increased in size, but imaging findings remain consistent with fibroadenoma. ASSESSMENT: Suspicious. BI-RADS category 4A: Low suspicion for malignancy. RECOMMENDATION: Given the stated patient's clinical concerns, enlargement and pain within this mass, excisional biopsy could be considered. As this mass has already undergone core biopsy, repeat core biopsy would not likely be beneficial. This report was electronically signed by BOOKER ARTEAGA M.D. on 08/26/2018 12:03 PM . Narrative 08/26/2018 12:03 PM CDT BREAST IMAGING OUTSIDE INTERPRETATION STUDIES PROVIDED FOR INTERPRETATION: Limited left breast ultrasound on 08/12/2018 and bilateral screening mammogram on 08/12/2018. Of note, a formal interpretation of the mammograms will not be performed as 3-D images did not properly load. Comparison left breast ultrasound dated 08/15/2017 and 08/15/2017 mammograms were provided. Again, the mammogram images did not properly load, therefore will not be used for this review. The provided studies are from [facility]. The above studies were provided for interpretation on 08/26/2018. HISTORY: The patient underwent biopsy of a left breast mass which revealed a fibroadenoma. She states that this mass has enlarged and has become more painful. The patient is here for second opinion to consider possible biopsy. FINDINGS: On the limited outside mammograms from 2019, biopsy marker is noted within the mass in question in the upper outer left breast. A parallel hypoechoic circumscribed mass in the 2:00 position, 5 cm from the nipple measures 3.1 x 2.4 x 1.4 cm in size. This has increased in size from the prior examination of 2018 where it measured up to 2.2 cm. Procedure Note Awilda Arteaga MD - 08/26/2018 BREAST IMAGING OUTSIDE INTERPRETATION STUDIES PROVIDED FOR INTERPRETATION: Limited left breast ultrasound on 08/12/2018 and bilateral screening mammogram on 08/12/2018. Of note, a formal interpretation of the mammograms will not be performed as 3-D images did not properly load. Comparison left breast ultrasound dated 08/15/2017 and 08/15/2017 mammograms were provided. Again, the mammogram images did not properly load, therefore will not be used for this review. The [facility]. The above studies were provided for interpretation on 08/26/2018. HISTORY: The patient underwent biopsy of a left breast mass which revealed a fibroadenoma. She states that this mass has enlarged and has become more painful. The patient is here for second opinion to consider possible biopsy. FINDINGS: On the limited outside mammograms from 2019, biopsy marker is notedwithin the mass in question in the upper outer left breast. A parallel hypoechoic circumscribed mass in the 2:00 position, 5 cm from the nipple measures 3.1 x 2.4 x 1.4 cm in size. This has increased insize from the prior examination of 2018 where it measured up to 2.2 cm. IMPRESSION: Previously biopsied fibroadenoma within the left breast has increased in size, but imaging findings remain consistent with fibroadenoma. ASSESSMENT: Suspicious. BI-RADS category 4A: Low suspicion for malignancy. RECOMMENDATION: Given the stated patient's clinical concerns, enlargement and painwithin this mass, excisional biopsy could be considered. As this mass hasalready undergone core biopsy, repeat core biopsy would not likely bebeneficial. This report was electronically signed by OBOKER ARTEAGA M.D. on 08/26/2018 12:03 PM . 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
--- OUTSIDE RECORDS SUMMARY | 2024-07-30 11:13 | XMS_ITS | Data Portability ---
Author Organization [place] [facility] Address [address] [place] [address] Assessment No assessment recorded. Plan of Treatment Reminders Order Date Submit Date Provider Last Modified By Organization Details Last Modified Time Details Appointments Follow Up 15 2024 09:45A M Alessandro Gabriel MD Not available Not available Not available Follow Up 15 2024 10:00A M Alessandro Gabriel MD Not available Not available Not available Lab iron + TIBC + ferritin, serum 2024 025 [employer] [facility], [address], [place], [address], 06/24/2024 04:01:49 urinalysi s complete, reflex culture 2024 025 [facility], [address], [place], [address], 06/24/2024 04:01:48 CBC w/ auto diff 2024 025 [facility], [address], [place], [address], 06/24/2024 04:01:48 lipid panel, serum 2024 025 [facility], [address], [place], [address], 06/24/2024 04:01:49 microalbu min/creat inine, mass ratio, urine 2024 025 [facility], [address], [place], [address], 06/24/2024 04:01:49 TSH, serum or plasma 2024 025 [facility], [address], [place], [address], 06/24/2024 04:01:49 CMP, serum or plasma 2024 025 [facility], [address], [place], [address], 06/24/2024 04:01:48 BMP, serum or plasma 2024 025 [facility], [address], [place], [address], 06/24/2024 04:01:49 magnesium , serum or plasma 2024 025 [facility], [address], [place], [address], 06/24/2024 04:01:49 iron + TIBC + ferritin, serum 2024 025 [facility], [address], [place], [address], 04/01/2024 04:06:36 urinalysi s complete, reflex culture 2024 025 [facility], [address], [place], [address], 04/01/2024 04:06:34 uric acid, serum or plasma 2024 025 [facility], [address], [place], [address], 04/01/2024 04:06:35 CBC w/ auto diff 2024 025 [facility], [address], [place], [address], 04/01/2024 04:06:35 lipid panel, serum 2024 025 [facility], [address], [place], [address], 04/01/2024 04:06:35 microalbu min/creat inine, mass ratio, urine 2024 025 [facility], [address], [place], [address], 04/01/2024 04:06:35 TSH, serum or plasma 2024 025 [facility], [address], [place], [address], 04/01/2024 04:06:35 rapid strep group A, throat 2024 025 [facility], [address] [place], [address], 03/25/2024 16:41:44 CMP, serum or plasma 2024 025 [facility], [address], [place], [address], 04/01/2024 04:06:34 BMP, serum or plasma 2024 025 [facility], [address], [place], [address], 04/01/2024 04:06:35 magnesium , serum or plasma 2024 025 [facility] [employer] [facility], [address], [place], [address], 04/01/2024 04:06:36 CMP, serum or plasma 2023 024 [facility], [address], [place], [address], 02/26/2024 04:04:34 urinalysi s, dipstick [address], [address], [place], [address], 01/21/2024 15:32:42 urinalysi s complete, reflex culture 2023 024 [facility] [employer] [facility], [address], [place], [address], 01/28/2024 04:01:04 CT + NG + TV, DNA, urine/swa b - urine sample 2023 024 [facility] [employer] [facility], [address], [place], [address], 01/28/2024 04:01:04 Referral None recorded. Procedures injection , trigger point (PROC) 2024 025 [email or web address] Not available 07/29/2024 17:22:51 Surgeries None recorded. Imaging XR, lumbosacr al spine, 2 or 3 view 2024 025 [email or web address], [facility] [facility] [address], [place], [address], 07/29/2024 15:35:27 CT, urogram 2023 024 [facility], [address], [place], [address], 02/06/2024 16:38:32 Medication Orders ketorolac 10 mg tablet 2024 025 [facility] [address], [facility] [place], [address], 07/29/2024 15:32:19 tramadol 50 mg tablet [email or web address] [facility] [address], [facility] [place], [address], 06/17/2024 12:26:22 doxycycli ne hyclate 100 mg capsule 2024 025 [facility] [address], [facility] [place], [address], 06/17/2024 12:20:46 metronida zole 500 mg tablet 2024 025 [facility] [address], [address] [place] [address], [address], 06/17/2024 12:20:48 methocarb jose 500 mg tablet 2024 025 [facility] [address], [address] [place] [address], [address], 03/25/2024 11:59:24 tramadol 50 mg tablet 2024 [facility] [address], [address] [place] [address], [address], 03/25/2024 11:58:39 levofloxa elaine 750 mg tablet 2024 025 [facility] [address], [address] [place] [address], [address], 06/17/2024 12:36:41 potassium chloride ER 20 mEq tablet,ex tended release 2024 025 [facility] [address], [address] [place] [address], [address], 03/25/2024 11:58:37 alprazola m 1 mg tablet 2023 024 [facility] [address], [address] [place] [address], [address], 02/19/2024 15:59:31 Vistaril 50 mg capsule 2023 024 [place] [address], [address] [place] [address], [address], 02/19/2024 16:07:18 zolpidem 5 mg tablet 2023 025 [facility] [address], [address] [place] [address], [address], 03/25/2024 12:04:34 ciproflox acin 500 mg tablet 2023 024 [place] [address] 7 [facility] [address], [address] [place] [address], [address], 06/17/2024 12:15:05 phenazopy ridine 200 mg tablet 2023 [facility] [address], [address] [place] [address], [address], 01/21/2024 15:32:49 fluconazo le 150 mg tablet 2023 [facility] [address], [address] [place] [address], [address], 01/21/2024 15:32:51 Seroquel 50 mg tablet 2023 024 [facility] [address], [address] [place] [address], [place], [address], 02/19/2024 16:04:09 Patient TargetsNo targets recorded. Patient Instructions Encounter Date Encounter Id Patient Instructions Last Modified By Organization Details Last Modified Time 01/21/2024 [id number] irritable bowel syndrome: care instructions Not available 01/21/2024 15:37:49 cervical disc disease: care instructions [email or web address] Not available 01/21/2024 15:37:49 fainting: care instructions [email or web address] Not available 01/21/2024 15:37:49 gastroesophageal reflux disease (GERD): care instructions [email or web address] Not available 01/21/2024 15:37:49 anxiety disorder : care instructions [email or web address] Not available 01/21/2024 15:37:49 learning about anxiety disorders [email or web address] Not available 01/21/2024 15:37:49 constipation: ca re instructions [email or web address] Not available 01/21/2024 15:37:49 blood in the uri ne: care instructions [email or web address] Not available 01/21/2024 15:37:49 leg and ankle ed estefania: care instructions [id number] Not available 01/21/2024 15:37:48 orthostatic hypotension: care instructions [id number] Not available 01/21/2024 15:37:48 pancreatitis: ca re instructions [id number] Not available 01/21/2024 15:37:48 I spent a total of __35____ minutes (excluding separately reportable procedure time ) in care of this patient. [email or web address] Not available 01/21/2024 15:38:44 02/19/2024 [id number] cervical disc disease: care instructions Not available 02/19/2024 15:55:41 irritable bowel syndrome: care instructions [id number] Not available 02/19/2024 15:55:41 fainting: care instructions [id number] Not available 02/19/2024 15:55:41 anxiety disorder : care instructions [id number] Not available 02/19/2024 15:55:40 learning about anxiety disorders [id number] Not available 02/19/2024 15:55:41 gastroesophageal reflux disease (GERD): care instructions cofpfntrd54 Not available 02/19/2024 15:55:41 constipation: ca re instructions [id number] Not available 02/19/2024 15:55:41 leg and ankle ed estefania: care instructions [id number] Not available 02/19/2024 15:55:41 orthostatic hypotension: care instructions [id number] Not available 02/19/2024 15:55:40 pancreatitis: ca re instructions [email or web address] Not available 02/19/2024 15:55:41 I spent a total of __38____ minutes (excluding separately reportable procedure time ) in care of this patient. [email or web address] Not available 02/19/2024 15:53:59 03/25/2024 [id number] cervical disc disease: care instructions [id number] Not available 03/25/2024 11:58:30 fainting: care instructions [email or web address] Not available 03/25/2024 11:58:30 irritable bowel syndrome: care instructions [id number] Not available 03/25/2024 11:58:31 gastroesophageal reflux disease (GERD): care instructions Not available 03/25/2024 11:58:30 learning about anxiety disorders [email or web address] Not available 03/25/2024 11:58:30 anxiety disorder : care instructions [email or web address] Not available 03/25/2024 11:58:30 constipation: ca re instructions [email or web address] Not available 03/25/2024 11:58:29 sore throat: car e instructions [email or web address] Not available 03/25/2024 11:58:30 leg and ankle ed estefania: care instructions [id number] Not available 03/25/2024 11:58:30 pancreatitis: ca re instructions [id number] Not available 03/25/2024 11:58:30 orthostatic hypotension: care instructions [id number] Not available 03/25/2024 11:58:31 I spent a total of __32____ minutes (excluding separately reportable procedure time ) in care of this patient. [email or web address] Not available 03/25/2024 11:59:41 06/17/2024 [id number] cervical disc disease: care instructions [email or web address] Not available 06/17/2024 12:26:13 fainting: care instructions [id number] Not available 06/17/2024 12:26:13 irritable bowel syndrome: care instructions [email or web address] Not available 06/17/2024 12:26:13 gastroesophageal reflux disease (GERD): care instructions ijhddbdqh91 Not available 06/17/2024 12:26:13 learning about anxiety disorders [id number] Not available 06/17/2024 12:26:14 anxiety disorder : care instructions [email or web address] Not available 06/17/2024 12:26:13 constipation: ca re instructions [id number] Not available 06/17/2024 12:26:13 leg and ankle ed estefania: care instructions [email or web address] Not available 06/17/2024 12:26:14 pancreatitis: ca re instructions [id number] Not available 06/17/2024 12:26:13 orthostatic hypotension: care instructions [id number] Not available 06/17/2024 12:26:13 07/29/2024 [id number] back care and preventing injuries: care instructions [email or web address] Not available 07/29/2024 15:32:13 I spent a total of __33____ minutes (excluding separately reportable procedure time ) in care of this patient. [email or web address] Not available 07/29/2024 17:20:12 Reason for Referral None Reported. Results Created Date Observation Date Name Description Value Unit Range Abnormal Flag Note LastModifiedBy Organization Detail LastModifiedTime 12/24/19 24 12/24/2023 URINA LYSIS REFLE X TO URINE CULTU RE color BROWN yellow abnormal Not Available [facility] [address] [facility] [address], [place], [address], 12/25/2023 22:26:58 12/24/1912/24/2023 URINA LYSIS REFLE X TO URINE CULTU RE appearance CLEAR clear Not Available [facility] [address] [facility] [address], [place], [address], 12/25/2023 22:26:58 12/24/1912/24/2023 URINA LYSIS REFLE X TO URINE CULTU RE glucose 500 mg/dL negati ve high Not Available [facility] [address] [facility] [address], [place], [address], 12/25/2023 22:26:58 12/24/1912/24/2023 URINA LYSIS REFLE X TO URINE CULTU RE bilirubin 1.00 negati ve Not Available [facility] [address] [facility] [address], [place], [address], 12/25/2023 22:26:58 12/24/1912/24/2023 URINA LYSIS REFLE X TO URINE CULTU RE blood NEGATI VE negati ve Not Available [facility] [address] [facility] [address], [place], [address], 12/25/2023 22:26:58 12/24/1912/24/2023 URINA LYSIS REFLE X TO URINE CULTU RE ketone NEGATI VE mg/dL negati ve Not Available [facility] [address] [facility] [address], [place], [address], 12/25/2023 22:26:58 12/24/1912/24/2023 URINA LYSIS REFLE X TO URINE CULTU RE specific gravity 1.020 1.005- 1.030 Not Available [facility] [address] [facility] [address], [place], [address], 12/25/2023 22:26:58 12/24/1912/24/2023 URINA LYSIS REFLE X TO URINE CULTU RE pH 5.5 4.5 - 8.0 Not Available [facility] [address] [facility] [address], [place], [address], 12/25/2023 22:26:58 12/24/1912/24/2023 URINA LYSIS REFLE X TO URINE CULTU RE protein NEGATI VE mg/dL negati ve Not Available [facility] [address] [facility] [address], [place], [address], 12/25/2023 22:26:58 12/24/1912/24/2023 URINA LYSIS REFLE X TO URINE CULTU RE urobilinogen 2.00 eu/dL 0.00-1 .00 high Not Available [facility] [address] [facility] [address], [place], [address], 12/25/2023 22:26:58 12/24/1912/24/2023 URINA LYSIS REFLE X TO URINE CULTU RE nitrite POSITI VE negati ve abnormal Not Available [facility] [address] [facility] [address], [place], [address], 12/25/2023 22:26:58 12/24/1912/24/2023 URINA LYSIS REFLE X TO URINE CULTU RE leukocyte esterase MODERA TE negati ve abnormal Not Available [facility] [address] [facility] [address], [place], [address], 12/25/2023 22:26:58 12/24/1912/24/2023 URINA LYSIS REFLE X TO URINE CULTU RE WBCs NONE SEEN /hpf 0-5 Not Available [facility] [address] [facility] [address], [place], [address], 12/25/2023 22:26:58 12/24/19 24 12/24/2023 URINA LYSIS REFLE X TO URINE CULTU RE RBCs 0-2 /hpf 0-2 Not Available [facility] [address] [facility] [address], [place], [address], 12/25/2023 22:26:58 12/24/1912/24/2023 URINA LYSIS REFLE X TO URINE CULTU RE squamous epithelial cells MODERA TE /hpf few abnormal Not Available [facility] [address] [facility] [address], [place], [address], 12/25/2023 22:26:58 12/24/19 24 12/24/2023 URINA LYSIS REFLE X TO URINE CULTU RE bacteria MODERA TE /hpf none abnormal Not Available [facility] [address] [facility] [address], [place], [address], 12/25/2023 22:26:58 12/24/19 24 12/24/2023 URINA LYSIS REFLE X TO URINE CULTU RE amorphous urates FEW /lpf none Not Available [facility] [address] [facility] [address], [place], [address], 12/25/2023 22:26:58 12/24/19 24 12/24/2023 URINA LYSIS REFLE X TO URINE CULTU RE color BROWN yellow abnormal Not Available [facility] [address] [facility] [address], [place], [address], 12/25/2023 22:26:58 12/24/19 24 12/24/2023 URINA LYSIS REFLE X TO URINE CULTU RE appearance CLEAR clear Not Available [facility] [address] [facility] [address], [place], [address], 12/25/2023 22:26:58 12/24/1912/24/2023 URINA LYSIS REFLE X TO URINE CULTU RE glucose 500 mg/dL negati ve high Not Available [facility] [address] [facility] [address], [place], [address], 12/25/2023 22:26:58 12/24/1912/24/2023 URINA LYSIS REFLE X TO URINE CULTU RE bilirubin 1.00 negati ve Not Available [facility] [address] [facility] [address], [place], [address], 12/25/2023 22:26:58 12/24/1912/24/2023 URINA LYSIS REFLE X TO URINE CULTU RE blood NEGATI VE negati ve Not Available [facility] [address] [facility] [address], [place], [address], 12/25/2023 22:26:58 12/24/1912/24/2023 URINA LYSIS REFLE X TO URINE CULTU RE ketone NEGATI VE mg/dL negati ve Not Available [facility] [address] [facility] [place] [address], [place], [address], 12/25/2023 22:26:58 12/24/1912/24/2023 URINA LYSIS REFLE X TO URINE CULTU RE specific gravity 1.020 1.005- 1.030 Not Available [facility] [address] [facility] [address], [place], [address], 12/25/2023 22:26:58 12/24/1912/24/2023 URINA LYSIS REFLE X TO URINE CULTU RE pH 5.5 4.5 - 8.0 Not Available [facility] [address] [facility] [address], [place], [address], 12/25/2023 22:26:58 12/24/1912/2312/24/2023 URINA LYSIS REFLE X TO URINE CULTU RE protein NEGATI VE mg/dL negati ve Not Available [facility] [address] [facility] [address], [place], [address], 12/25/2023 22:26:58 12/24/19 24 12/24/2023 URINA LYSIS REFLE X TO URINE CULTU RE urobilinogen 2.00 eu/dL 0.00-1 .00 high Not Available [facility] [address] [facility] [address], [place], [address], 12/25/2023 22:26:58 12/24/1912/24/2023 URINA LYSIS REFLE X TO URINE CULTU RE nitrite POSITI VE negati ve abnormal Not Available [facility] [address] [facility] [address], [place], [address], 12/25/2023 22:26:58 12/24/1912/24/2023 URINA LYSIS REFLE X TO URINE CULTU RE leukocyte esterase MODERA TE negati ve abnormal Not Available [facility] [address] [facility] [address], [place], [address], 12/25/2023 22:26:58 12/24/19 24 12/24/2023 URINA LYSIS REFLE X TO URINE CULTU RE WBCs NONE SEEN /hpf 0-5 Not Available [facility] [address] [facility] [address], [place], [address], 12/25/2023 22:26:58 12/24/19 24 12/24/2023 URINA LYSIS REFLE X TO URINE CULTU RE RBCs 0-2 /hpf 0-2 Not Available [facility] [address] [facility] [address], [place], [address], 12/25/2023 22:26:58 12/24/19 24 12/24/2023 URINA LYSIS REFLE X TO URINE CULTU RE squamous epithelial cells MODERA TE /hpf few abnormal Not Available [facility] [address] [facility] [address], [place], [address], 12/25/2023 22:26:58 12/24/19 24 12/24/2023 URINA LYSIS REFLE X TO URINE CULTU RE bacteria MODERA TE /hpf none abnormal Not Available [facility] [address] [facility] [address], [place], [address], 12/25/2023 22:26:58 12/24/19 24 12/24/2023 URINA LYSIS REFLE X TO URINE CULTU RE amorphous urates FEW /lpf none Not Available [facility] [address] [facility] [address], [place], [address], 12/25/2023 22:26:58 12/24/19 24 01/01/2024 URINE CULTU RE ROUTI NE urine culture, routine FINAL REPORT abnormal Not Available [facility] [address] [facility] [address], [place], [address], 01/01/2024 15:16:17 12/24/1901/01/2024 URINE CULTU RE ROUTI NE result 1 COMMEN T abnormal Esche candis a coli, ident ified by an autom ated bioch emica l syste m. Cefaz armin <=4 ug/mL Cefaz armin with an ALDEN <=16 predi cts susce ptibi lity to the oral agent s cefac fermin, cefdi ela, cefpo doxim e, cefpr ozil, cefur oxime , cepha lexin , and lorac arbef when used for thera py of uncom plica mckenzie urina ry tract infec tions due to E. coli, Klebs iella pneum oniae , and Prote us mirab ilis. Great er than 100,0 00 colon y formi ng units per mL Not Available [facility] [address] [facility] [address], [place], [address], 01/01/2024 15:16:17 12/24/19 24 01/01/2024 URINE CULTU RE ROUTI NE result 2 COMMEN T abnormal Enter obact er cloac ae compl ex Great er than 100,0 00 colon y formi ng units per mL Multi -Drug Resis tant Organ ism Not Available [facility] [address] [facility] [address], [place], [address], 01/01/2024 15:16:17 12/24/19 24 01/01/2024 URINE CULTU RE ROUTI NE antimicrobia l susceptibili ty COMMEN T normal S = Susce ptibl e; I = Inter media te; R = Resis tant P = Posit hernan; N = Negat hernan MICS are expre ssed in micro grams per mL Antib iotic RSLT# 1 RSLT# 2 RSLT# 3 RSLT# 4 Amoxi cilli n/Cla vulan ic Acid S R Ampic illin R Cefaz armin R Cefep josie S S Ceftr iaxon e S Cefur oxime S I Cipro floxa elaine S S Ertap enem S Genta micin S S Imipe nem S S Levof loxac in S S Merop enem S Nitro furan toin S R Piper acill in/Ta zobac etienne S Tetra cycli ne S S Tobra mycin S S Trime thopr im/Christianson lfa S S Not Available [facility] [address] [facility] [address], [place], [address], 01/01/2024 15:16:17 01/21/20 24 01/21/2024 URINA LYSIS REFLE X TO URINE CULTU RE color BAUTISTA yellow abnormal Not Available [facility] [address] [facility] [address], [place], [address], 01/27/2024 06:13:27 01/21/20 24 01/21/2024 URINA LYSIS REFLE X TO URINE CULTU RE appearance HAZY clear Not Available [facility] [address] [facility] [address], [place], [address], 01/27/2024 06:13:27 11/06/01/21/2024 URINA LYSIS REFLE X TO URINE CULTU RE glucose NEGATI VE mg/dL negati ve Not Available [facility] [address] [facility] [address], [place], [address], 01/27/2024 06:13:27 01/21/20 24 01/21/2024 URINA LYSIS REFLE X TO URINE CULTU RE bilirubin NEGATI VE negati ve Not Available [facility] [address] [facility] [address], [place], [address], 01/27/2024 06:13:27 01/21/20 24 01/21/2024 URINA LYSIS REFLE X TO URINE CULTU RE blood MODERA TE negati ve abnormal Not Available [facility] [facility] [id number] [facility] [address], [place], [address], 01/27/2024 06:13:27 01/21/20 24 01/21/2024 URINA LYSIS REFLE X TO URINE CULTU RE ketone NEGATI VE mg/dL negati ve Not Available [facility] [address] [facility] [address], [place], [address], 01/27/2024 06:13:27 01/21/20 24 01/21/2024 URINA LYSIS REFLE X TO URINE CULTU RE specific gravity 1.005 1.005- 1.030 Not Available [facility] [address] [facility] [address], [place], [address], 01/27/2024 06:13:27 01/21/20 24 01/21/2024 URINA LYSIS REFLE X TO URINE CULTU RE pH 7.0 4.5 - 8.0 Not Available [facility] [address] [facility] [address], [place], [address], 01/27/2024 06:13:27 01/21/20 24 01/21/2024 URINA LYSIS REFLE X TO URINE CULTU RE protein NEGATI VE mg/dL negati ve Not Available [facility] [address] [facility] [address], [place], [address], 01/27/2024 06:13:27 01/21/20 24 01/21/2024 URINA LYSIS REFLE X TO URINE CULTU RE urobilinogen 1.00 eu/dL 0.00-1 .00 Not Available [facility] [address] [facility] [address], [place], [address], 01/27/2024 06:13:27 01/21/20 24 01/21/2024 URINA LYSIS REFLE X TO URINE CULTU RE nitrite POSITI VE negati ve abnormal Not Available [facility] [address] [facility] [address], [place], [address], 01/27/2024 06:13:27 01/21/20 24 01/21/2024 URINA LYSIS REFLE X TO URINE CULTU RE leukocyte esterase SMALL negati ve abnormal Not Available [facility] [address] [facility] [address], [place], [address], 01/27/2024 06:13:27 01/21/20 24 01/21/2024 URINA LYSIS REFLE X TO URINE CULTU RE WBCs 7-15 /hpf 0-5 abnormal Not Available [facility] [address] [facility] [address], [place], [address], 01/27/2024 06:13:27 01/21/2001/21/2024 URINA LYSIS REFLE X TO URINE CULTU RE RBCs > 100 /hpf 0-2 abnormal Not Available [facility] [address] [facility] [address], [place], [address], 01/27/2024 06:13:27 01/21/20 24 01/21/2024 URINA LYSIS REFLE X TO URINE CULTU RE squamous epithelial cells MODERA TE /hpf few abnormal Not Available [facility] [address] [facility] [address], [place], [address], 01/27/2024 06:13:27 01/21/20 24 01/21/2024 URINA LYSIS REFLE X TO URINE CULTU RE bacteria MODERA TE /hpf none abnormal Not Available [facility] [address] [facility] [address], [place], [address], 01/27/2024 06:13:27 01/21/20 24 01/21/2024 URINA LYSIS REFLE X TO URINE CULTU RE color BAUTISTA yellow abnormal Not Available [facility] [address] [facility] [address], [place], [address], 01/27/2024 06:13:27 01/21/20 24 01/21/2024 URINA LYSIS REFLE X TO URINE CULTU RE appearance HAZY clear Not Available [facility] [address] [facility] [address], [place], [address], 01/27/2024 06:13:27 01/21/20 24 01/21/2024 URINA LYSIS REFLE X TO URINE CULTU RE glucose NEGATI VE mg/dL negati ve Not Available [facility] [address] [facility] [address], [place], [address], 01/27/2024 06:13:27 01/21/20 24 01/21/2024 URINA LYSIS REFLE X TO URINE CULTU RE bilirubin NEGATI VE negati ve Not Available [facility] [address] [facility] [address], [place], [address], 01/27/2024 06:13:27 01/21/20 24 01/21/2024 URINA LYSIS REFLE X TO URINE CULTU RE blood MODERA TE negati ve abnormal Not Available [facility] [address] [facility] [address], [place], [address], 01/27/2024 06:13:27 01/21/20 24 01/21/2024 URINA LYSIS REFLE X TO URINE CULTU RE ketone NEGATI VE mg/dL negati ve Not Available [facility] [address] [facility] [address], [place], [address], 01/27/2024 06:13:27 01/21/20 24 01/21/2024 ZANDER SMITHE [id number]|2024-07-30 11:13:00|2024-07-30 11:13:00|XMS_ITS|BKG DAEMON|External Medical Summaries|[id number]|" Encounter Summary Created on: July 30, 2024 Margarita Washington : 1980 Sex: Female Author Organization [facility] Address [address] [place], [place] [address] [address] Care Team Providers Care Fermenter Wine Name Role Phone Alessandro Gabriel MD Primary Care Provider [phone] Encounter Details Date Type Department Care Team (Late st Contact Info) Description 12/27/[address] 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 Fluid ENTIRE VAGINA / Unknown Collection / Unknown 12/27/2014 12:00 PM CDT 12/27/2014 1:[address] [facility] - 12/27/2014 2:20 PM CDT FFN COMMENT: Positive - Indicates the presence of secretions that will result in delivery in less than or equal to 7 to 14 days from collection in symptomatic women. Negative - Indicates the absence of secretions that will result in delivery in less than or equal to 7 to 14 days from collection in symptomatic women. Indeterminate - The specimen does not meet internal acceptance on the initial and repeat testing. The Rapid fFN result should not be interpreted as absolute evidence for the presence or absence of a process that will result in delivery in less than or equal to 7 to 14 days from specimen collection in symptomatic women or delivery in less than or equal to 34 weeks, 6 days in asymptomatic women evaluated between 22 weeks, 0 days and 30 weeks, 6 days of gestation. A positive fFN result may be observed for patients who have experienced cervical disruption caused by, but not limited to, events such as sexual intercourse, digital cervical examination, or vaginal probe ultrasound. The Rapid fFN result should always be used inconjuction with information available from the clinical evaluation of the patient and other diagnostic procedures such as cervical examination, cervical microbiological culture, assessment of uterine activity, and evaluation of other risk factors. Patients taking [id number] may show falsely elevated levels of Homocysteine. Patients taking methotrexate, nicotinic acid, theophylline, nitrous oxide, or L- dopa can have falsely elevated Homocysteine levels. Heterophilic antibodies in human serum can react with reagent immunoglobulins, interfering with in vitro immunoassays. Patients routinely exposed to animals or to animal serum products can be prone to this interference and anomalous values may be observed. Additional information may be required for diagnosis. Ike Barreto MD LAB - BODY FLUID ORDERABLES Final Result 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
== END 2024-07-30 11:06 | disposition home or self-care (01) ==
PROVIDERS: PCP Internal Medicine; Visit Provider Internal Medicine
DX: M47.816 Spondylosis without myelopathy or radiculopathy, lumbar region (principal)
CPT/HCPCS: 72100

== ENCOUNTER 2024-08-13 15:09 | Emergency (ER) | payer OTHER, SELFPAY ==
--- NOTE | 2024-08-13 15:18 | ED_ITS ---
HPI - URI/Sore Throat General Chief Complaint: Upper Respiratory Infection Stated Complaint: burning in chest/flu symptoms Time Seen by Provider: 08/13/24 15:15 Source: patient Mode of arrival: ambulatory Limitations: no limitations History of Present Illness HPI Narrative: Patient is a 43-year-old female who presents with cough, sore throat, congestion and burning in chest with cough for 2 days. Patient has tried Flonase, Zyrtec and [id number] cough medicine with no relief. Reports history of walking pneumonia. Patient has history of multiple bulging discs in back and states it hurts to take deep breaths at baseline. Denies any fever, chills, nausea, vomiting, diarrhea. Related Data Home Medications ?Medication ?Instructions ?Recorded ?Confirmed ?Last Taken ?Type alprazolam 1 mg tablet 1 mg PO TID 06/08/21 11/25/23 Unknown History ergocalciferol (vitamin D2) 1,250 1,250 mcg PO DIRECTED 06/08/21 11/25/23 Unknown History mcg (50,000 unit) capsule omeprazole 20 mg capsule,delayed 20 mg PO DAILY 06/08/21 11/25/23 Unknown History release potassium chloride 10 mEq 40 meq PO DAILY 07/01/22 11/25/23 Unknown History tablet,extended release ferrous gluconate 324 mg (38 mg 324 mg PO DAILY 02/11/23 11/25/23 Unknown History iron) tablet furosemide 20 mg tablet 20 mg PO DAILY 03/07/23 11/25/23 Unknown History famotidine 20 mg tablet 20 mg PO BID 03/25/23 11/25/23 Unknown History tramadol 50 mg tablet See Rx Instructions .Route .COMPLEX 05/23/23 11/25/23 Unknown History divalproex 125 mg tablet,delayed mg PO 08/13/24 Unknown History release potassium chloride 20 mEq meq PO 08/13/24 Unknown History tablet,extended release Allergies Allergy/AdvReac Type Severity Reaction Status Date / Time cephalexin Allergy Intermediate Swelling Verified 08/13/24 15:45 Sulfa (Sulfonamide Allergy Intermediate Hives Verified 08/13/24 15:45 Antibiotics) vancomycin Allergy Intermediate Hives Verified 08/13/24 15:45 codeine Allergy Mild Nausea and Verified 08/13/24 15:45 Vomiting nitrofurantoin (From Allergy Mild Swelling Verified 05/30/25 15:45 Macrobid) Review of Systems Review of Systems: All systems reviewed & are unremarkable except as noted in HPI and below Constitutional: Constitutional: Denies chills, Denies fatigue, Denies fever(s), Denies headache(s), Denies malaise and Denies weakness Eyes: Eyes: Denies blurry vision, Denies itchy eyes and Denies loss of vision ENT: Denies otalgia, Denies headache(s), Reports nasal congestion, Denies sinus pain and Reports sore throat Cardiovascular: Cardiovascular: Denies chest pain, Denies irregular heart rhythm and Denies dyspnea Respiratory: Respiratory: Reports cough and Denies dyspnea Gastrointestinal: Gastrointestinal: Denies abdominal pain, Denies diarrhea, Denies nausea and Denies vomiting Musculoskeletal: Musculoskeletal: Denies back pain, Denies myalgias and Denies arthralgias Integumentary/Breasts: Skin/Breast: Denies pruritus and Denies rash Neurologic: Denies headache(s), Denies loss of vision and Denies weakness Psychiatric: Psychiatric: Reports no additional psychiatric complaints Endocrine: Endocrine: Denies fatigue Allergic/Immunologic: Allergic/Immunologic: Denies itchy eyes PMFSH Past Medical History Medical History 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 Lumbosacral radiculopathy GERD (gastroesophageal reflux disease) Back pain Leg pain, bilateral Heart palpitations Asplenia Vapes nicotine containing substance Hypertension Anxiety Surgical History Surgical History H/O splenectomy thrombocytopenia,reports has 2 pancreatic stents Hx of cholecystectomy History of bladder suspension procedure Previous section Social History Social History Smoking packs per day: 1 Smoking cigarettes per day: 20.0 Years smoked: 20 Smoking pack-years: 20.00 Smoking status: Former smoker Tobacco type: cigarettes and e-cigarettes/vaping Additional smoking assessment comments: 1.5 YR VAPING Alcohol intake: former Substance use: former Substance use type: prescription drug Other substance usage details: FENTANYL Last use: 2008 Do You Feel Safe in your Home?: Yes Lack of Transportation: No Lack of Food: Sometimes True Current Housing: I Have Housing Concerned About Future Housing: Decline to Answer Difficulty Paying Gas/Electric Bills: YES Difficulty Paying for Meds: YES Currently Unemployed: Decline to Answer Education: High School Diploma/GED Difficulty w/ Childcare or Family Care: YES Living arrangements: alone Gender identity (if verbalized by the patient): Female Comments At time of signature, agree with nursing past medical, surgical, social and family history. There is no relevant family history pertinent to the presenting complaint. Exam Const: General: cooperative, healthy appearing, comfortable, no acute distress and well nourished Nutritional Appearance: well nourished Orientation/consciousness: patient oriented x3 Limitations: no limitations HENMT: Head: normal to inspection, normocephalic and atraumatic Ears: hearing grossly normal bilaterally, external ears normal, TM's normal bilaterally, EAC's normal and no periauricular adenopathy Face/Nose/Sinus: Normal external nose present, Abnormal mucous membranes and turbinates present erythematous bilateral and diffuse, normal facial exam, sinuses nontender and face symmetric Face and sinus: normal facial exam, sinuses nontender and face symmetric Mouth: Yes Normal oral and palatal mucosa present, Yes lip normal, Yes tongue normal, Yes Normal salivary glands and ducts present, Yes oropharynx normal and Yes moist mucous membranes Teeth and gingiva: dentition normal Throat: posterior oropharynx normal, tonsils normal and uvula midline Eyes: General: appearance normal, both eyes and all related structures Alignment and Position: alignment normal and position normal Periorbital: periorbital findings normal Eyelids: eyelids normal Pupils: Equal, round and reactive pupils present Neck: Neck: normal visual inspection, full ROM, no lymphadenopathy and supple Chest: Chest palpation & inspection: normal inspection of the chest and normal palpation of entire chest wall Resp: Effort & Inspection: normal respiratory effort and able to speak in complete sentences Auscultation: clear to auscultation bilaterally, no crackles, no rales, no rhonchi and no wheezes Cardio: Rate: regular rate Rhythm: regular rhythm Heart sounds: S1 normal heart sound present and S2 normal heart sound present GI: Inspection: normal to inspection Skin: General skin exam: normal color and no rashes or lesions noted Neuro: General: patient oriented x3 and moves all extremities Cranial nerves: Yes Equal, round and reactive pupils present Speech: normal speech Gait exam (Neuro): Normal gait present Extrem: General: normal to inspection, full ROM and no edema Psych: Appearance: grossly normal and well kempt Mental Status: mental status grossly normal Speech and movement: Normal speech and movement present Affect: normal affect Attitude: cooperative Thought process: Normal thought process present Course Course Emergency Course: Discharge instructions reviewed with patient, as well as provided in writing per nursing staff. The instructions also include specific and strict return/GO TO THE ER as well as f/u information. All questions have been answered, and the patient deny any further questions with discharge and discharge plan. Portions of this record may have been created with voice recognition software Level of Care: Express Care Visit Vital Signs Vital signs: Vital Signs Temperature 36.3 C L 08/13/24 15:48 Pulse Rate 73 08/13/24 15:48 Respiratory Rate 16 08/13/24 15:48 Blood Pressure 151/79 H 08/13/24 15:48 Pulse Oximetry 100 08/13/24 15:48 Oxygen Delivery Room Air 08/13/24 15:48 Temperature 36.3 C L 08/13/24 15:48 Pulse Rate 73 08/13/24 15:48 Respiratory Rate 16 08/13/24 15:48 Blood Pressure 151/79 H 08/13/24 15:48 Pulse Oximetry 100 08/13/24 15:48 Oxygen Delivery Room Air 08/13/24 15:48 Reviewed MDM - URI/Sore Throat MDM Narrative Medical decision making narrative: Pt well hydrated appearing, in no respiratory distress, hemodynamically stable. Recommend supportive care. The patient is stable at time of discharge the clinical impression was discussed and the patient was given the opportunity to ask questions, which were addressed as completely as possible given the information available at present. Anticipatory guidance and return to care precautions were discussed and the importance of primary care follow-up was stressed and encouraged. The patient voiced understanding of the plan, indicati ons to return, and the need for follow-up. Exam findings show no acute concerns or changes Patient is appropriate for outpatient treatment and follow-up. Differential diagnosis considered: Sheridan virus, strep pharyngitis, allergic rhinitis, upper respiratory tract infection, sinusitis, rhinosinusitis, nasopharyngitis. viral pharyngitis, otitis media, otitis externa, otitis effusion, foreign body, cerumen impaction, viral syndrome, and influenza.? Medical Records Attestation: I reviewed the patient's medical records. Lab Data Attestation: I reviewed the patient's lab results. Labs: Lab Results 08/13/24 Range/Units 16:00 POC Influenza A Ag Negative (Negative) POC Influenza B Ag Negative (Negative) POC SARS CoV-2 Ag Negative (Negative) POC Grp A Strep Screen Negative (Negative) Discharge Plan Discharge Clinical Impression: Upper respiratory infection Qualifiers: URI type: unspecified viral URI Qualified Code(s): J06.9 - Acute upper respiratory infection, unspecified Patient Disposition: Home Condition: Stable Instructions: Upper Respiratory Infection (ED) Additional Instructions: Your rapid strep swab was negative today at [facility]. A throat culture will be sent to the laboratory for further testing. If the test is positive, you will receive a phone call within 48 hours and an appropriate antibiotic will be initiated at that time. Your Covid and flu are both negative Your symptoms are likely due to a viral illness, which is not treated with antibiotics. Viral symptoms can be present for up to a few weeks. -For pain/fever, you may take: Tylenol 650-1000mg by mouth every 4-6 hours. Do not exceed 4000mg in 24 hours. Advil (Ibuprofen) 600 mg by mouth every 6 hours. Do not exceed 2400mg in 24 hours. 8 AM: Tylenol 11 AM: Ibuprofen 2 PM: Tylenol 5 PM: Ibuprofen 8 PM: Tylenol 11 PM: Ibuprofen 2 AM: Tylenol 5 AM: Ibuprofen -Antihistamine medication such as Benadryl/Zyrtec at night and Claritin/Zhanna during the day can help improve symptoms. -Use Flonase twice a day for 5 days then daily to help reduce the inflammation and dry up your sinuses. -You can also use Sudafed behind the pharmacy counter(12 or 24 hour). Be sure to drink plenty of water with these medications at least 8 ounces with every dose and it is important to drink 8 to 10 glasses of water per day. Water is a natural decongestant -Eat and drink things that are easy to swallow, like tea or soup, or popsicles. -Oral rinses such as: Salt water gargles and/or may use topical anesthetic (eg. Chloraseptic spray) or lozenges to relieve dryness or throat pain). -Frequent hand washing or hand technical writer is one of the best ways to prevent spread of infection. -Using a vaporizer or humidifier at night will also help thin secretions and help with coughing up phlegm. Call your Primary Care Doctor and make a follow-up appointment in 3 days. If your cough worsens, you develop a fever greater than 103, you develop shaking chills, a fast heartbeat, trouble breathing and/or feel you are are breathing much faster than usual, call your Primary Care Doctor or go to the ER. Your blood pressure was elevated above 120/80 today at Urgent Care. This puts you above the threshold for follow up visit with a primary care provider. High blood pressure does not usually cause any symptoms, however it may lead to kidney failure, stroke, heart disease just to name a few if untreated . Many people are anxious when seeing a provider or nurse. As a result, you are not diagnosed with hypertension at this time unless your blood pressure is persistently high at two office visits at least one week apart. Some things that can help lower blood pressure are lifestyle modifications, such as light exercise, decreased salt in diet, and weight loss. It is important to follow up with a PCP about this within 1 week. Patient Language: Uruguayan Prescriptions: New benzonatate 100 mg capsule 100 mg PO BID PRN (Reason: cough) Qty: 14 0RF albuterol sulfate 90 mcg/actuation HFA aerosol inhaler 2 puff inhalation QID PRN (Reason: shortness of breath or wheezing) Qty: 6.7 0RF (DME) Aerochamber MV Spacer See Rx Instructions .Route Qty: 1 0RF Rx Instructions: As directed fluticasone propionate [Flonase Allergy Relief] 50 mcg/actuation spray,suspension 1 spray intranasal DAILY Qty: 16 0RF Rx Instructions: administer into each nostril No Action folic acid 1 mg tablet 1 mg PO DAILY Qty: 30 0RF ferrous gluconate 324 mg (38 mg iron) tablet 324 mg PO DAILY divalproex 125 mg tablet,delayed release (DR/EC) PO potassium chloride 20 mEq tablet extended release PO alprazolam 1 mg tablet 1 mg PO TID omeprazole 20 mg capsule,delayed release(DR/EC) 20 mg PO DAILY ergocalciferol (vitamin D2) 1,250 mcg (50,000 unit) capsule 1,250 mcg PO DIRECTED Rx Instructions: -FRIDAY potassium chloride 10 mEq tablet extended release 40 meq PO DAILY furosemide 20 mg tablet 20 mg PO DAILY tramadol 50 mg tablet See Rx Instructions .ROUTE .COMPLEX Rx Instructions: Rx lidocaine HCl [Lidocaine Viscous] 2 % solution 1 applic mucous membrane TID PRN (Reason: pain) 7 Days Qty: 600 0RF ondansetron 4 mg tablet,disintegrating 4 mg PO Q8H PRN (Reason: nausea and vomiting) Qty: 15 0RF lidocaine 5 % adhesive patch,medicated 1 patch topical DAILY Qty: 30 1RF Rx Instructions: leave on most painful area for up to 12 hrs famotidine 20 mg tablet 20 mg PO BID methocarbamol 500 mg tablet 500 mg PO QID PRN (Reason: spasms) Qty: 30 1RF Follow-up/Referrals: RICHIE,CORA [Other] - 3 Days Time of Disposition: 16:31
[2024-08-13 15:48] VITALS: BP 151/79; PULSE 73; RESP 16; TEMP 36.3; O2SAT 100
[2024-08-13 16:03] LABS: EDCOVIDSCREEN Negative (Negative); EDINFLUASCREEN Negative (Negative); EDINFLUBSCREEN Negative (Negative); EDSTREPNEGPOS1 Negative (Negative)
== END 2024-08-13 16:35 | disposition home or self-care (01) ==
PROVIDERS: Emergency Provider Nurse Practitioner Family
DX: J06.9 Acute upper respiratory infection, unspecified (principal); Z20.822 Contact with and (suspected) exposure to COVID-19; F17.290 Nicotine dependence, other tobacco product, uncomplicated; K21.9 Gastro-esophageal reflux disease without esophagitis; I10 Essential (primary) hypertension; F41.9 Anxiety disorder, unspecified
CPT/HCPCS: 87081; 87426; 87804; 87880; 99213; G0463

== ENCOUNTER 2024-10-13 12:26 | Emergency (ER) | payer OTHER, SELFPAY ==
--- NOTE | 2024-10-13 12:50 | ED_ITS ---
HPI - General Adult General Chief complaint: Skin/Abscess/Foreign Body Stated complaint: sores on lower back Source: patient Mode of arrival: ambulatory Limitations: no limitations History of Present Illness HPI narrative: Pt is a 43 y/o female presenting with c/o sores on her lower back. Pt reports brushing her back against the side of her friend's rough pool on Friday. States she also brushed her L. upper arm against it but denies any concerrn there. States her lower back is TTP. Tx initiated DECISION ANALYST includes application of silvadene and topical lidocaine. Pt reports severe burning after application of lidocaine. Last tetanus vaccination received < 5 yrs ago. No additional complaints. Related Data Home Medications ?Medication ?Instructions ?Recorded ?Confirmed ?Last Taken ?Type alprazolam 1 mg tablet 1 mg PO TID 06/08/21 11/25/23 Unknown History ergocalciferol (vitamin D2) 1,250 1,250 mcg PO DIRECTED 06/08/21 11/25/23 U nknown History mcg (50,000 unit) capsule omeprazole 20 mg capsule,delayed 20 mg PO DAILY 06/08/21 11/25/23 Unknown History release potassium chloride 10 mEq 40 meq PO DAILY 07/01/22 11/25/23 Unknown History tablet,extended release ferrous gluconate 324 mg (38 mg 324 mg PO DAILY 02/11/23 11/25/23 Unknown History iron) tablet furosemide 20 mg tablet 20 mg PO DAILY 03/07/23 11/25/23 Unknown History famotidine 20 mg tablet 20 mg PO BID 03/25/23 11/25/23 Unknown History tramadol 50 mg tablet See Rx Instructions .Route .COMPLEX 05/23/23 11/25/23 Unknown History divalproex 125 mg tablet,delayed mg PO 08/13/24 Unknown History release potassium chloride 20 mEq meq PO 08/13/24 Unknown History tablet,extended release acamprosate 333 mg tablet,delayed mg PO 10/13/24 Unknown History release Allergies Allergy/AdvReac Type Severity Reaction Status Date / Time cephalexin Allergy Intermediate Swelling Verified 10/13/24 12:56 Sulfa (Sulfonamide Allergy Intermediate Hives Verified 10/13/24 12:56 Antibiotics) vancomycin Allergy Intermediate Hives Verified 10/13/24 12:56 codeine Allergy Mild Nausea and Verified 10/13/24 12:56 Vomiting nitrofurantoin (From Allergy Mild Swelling Verified 10/13/24 12:56 Macrobid) Review of Systems Review of Systems: CONSTITUTIONAL: Denies body aches, fever, chills, or sweats. EYES: Denies visual changes, redness, or discharge. ENT: Denies rhinorrhea, congestion, sore throat, or otalgia. CARDIOVASCULAR: Denies chest pain, palpitations, or edema. RESPIRATORY: Denies cough or dyspnea. GASTROINTESTINAL: Denies abdominal pain, nausea, vomiting, or diarrhea. GENITOURINARY: Denies dysuria or hematuria. SKIN: Reports wounds to her lower back. MUSCULOSKELETAL: Denies back pain, joint pain, or myalgia. NEUROLOGIC: Denies headache, numbness, tingling, or weakness. PSYCH: Denies depression or anxiety. 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 Lumbosacral radiculopathy GERD (gastroesophageal reflux disease) Back pain Leg pain, bilateral Heart palpitations Asplenia Vapes nicotine containing substance Hypertension Anxiety Surgical History Surgical History H/O splenectomy thrombocytopenia,reports has 2 pancreatic stents Hx of cholecystectomy History of bladder suspension procedure Previous section Social History Social History Smoking packs per day: 1 Smoking cigarettes per day: 20.0 Years smoked: 20 Smoking pack-years: 20.00 Smoking status: Former smoker Tobacco type: cigarettes and e-cigarettes/vaping Additional smoking assessment comments: 1.5 YR VAPING Alcohol intake: former Substance use: former Substance use type: prescription drug Other substance usage details: FENTANYL Last use: 2008 Do You Feel Safe in your Home?: Yes Lack of Transportation: No Lack of Food: Sometimes True Current Housing: I Have Housing Concerned About Future Housing: Decline to Answer Difficulty Paying Gas/Electric Bills: YES Difficulty Paying for Meds: YES Currently Unemployed: Decline to Answer Education: High School Diploma/GED Difficulty w/ Childcare or Family Care: YES Living arrangements: alone Gender identity (if verbalized by the patient): Female Exam Narrative: GENERAL: Well-appearing, well-nourished, and in no acute distress. HEAD: Normocephalic, atraumatic. EYES: EOMI. No redness or drainage. Conjunctivae normal. ENT: Mucous membranes pink and moist. NECK: Normal AROM. CHEST: No respiratory distress. HEART: Regular rate MUSCULOSKELETAL: No bony tenderness. EXTREMITIES: Normal range of motion. No edema. SKIN: (2) abrasions (round) with diameter of approximately 3cm each noted to the center of her lower back. 1cm abrasion with overlying scab formation noted to the L. upper arm. There is no erythema, edema, drainage, or lymphatic streaking noted to any of the aforementioned wounds. Capillary refill normal. Normal skin turgor. NEURO: No focal deficits. Alert and oriented x3. Gait steady. PSYCH: Normal affect. No signs of depression or anxiety. Course Course Emergency Course: abrasions present without evidence of infection. Wound care and tylenol to be implemented with close f/u with PCP. Strict go to ER precautions discussed at length Level of Care: Express Care Visit Discharge Plan Discharge Clinical Impression: Abrasion of lower back Qualifiers: Encounter type: initial encounter Qualified Code(s): S30.810A - Abrasion of lower back and pelvis, initial encounter Hypertension Qualifiers: Hypertension type: unspecified Qualified Code(s): I10 - Essential (primary) hypertension Abrasion of arm, left Qualifiers: Encounter type: initial encounter Qualified Code(s): S40.812A - Abrasion of left upper arm, initial encounter Patient Disposition: Home Condition: Stable Instructions: Antibiotic Form, Abrasion (ED) Additional Instructions: Purchase and begin using bacitracin per the package instructions. You can cover the area with Telfa when youre wearing clothing that will rub against the area--otherwise, keep it open to air. Prior to applying bacitracin, make sure you cleanse your skin with a gentle soap and water, pat dry. Go straight to ER should your symptoms become worse or should any new symptoms develop Patient Language: Ma[place] Prescriptions: No Action folic acid 1 mg tablet 1 mg PO DAILY Qty: 30 0RF ferrous gluconate 324 mg (38 mg iron) tablet 324 mg PO DAILY divalproex 125 mg tablet,delayed release (DR/EC) PO potassium chloride 20 mEq tablet extended release PO benzonatate 100 mg capsule 100 mg PO BID PRN (Reason: cough) Qty: 14 0RF albuterol sulfate 90 mcg/actuation HFA aerosol inhaler 2 puff inhalation QID PRN (Reason: shortness of breath or wheezing) Qty: 6.7 0RF (DME) Aerochamber MV Spacer See Rx Instructions .Route Qty: 1 0RF Rx Instructions: As directed fluticasone propionate [Flonase Allergy Relief] 50 mcg/actuation spray,suspension 1 spray intranasal DAILY Qty: 16 0RF Rx Instructions: administer into each nostril acamprosate 333 mg tablet,delayed release (DR/EC) PO alprazolam 1 mg tablet 1 mg PO TID omeprazole 20 mg capsule,delayed release(DR/EC) 20 mg PO DAILY ergocalciferol (vitamin D2) 1,250 mcg (50,000 unit) capsule 1,250 mcg PO DIRECTED Rx Instructions: -FRIDAY potassium chloride 10 mEq tablet extended release 40 meq PO DAILY furosemide 20 mg tablet 20 mg PO DAILY tramadol 50 mg tablet See Rx Instructions .ROUTE .COMPLEX Rx Instructions: Rx lidocaine HCl [Lidocaine Viscous] 2 % solution 1 applic mucous membrane TID PRN (Reason: pain) 7 Days Qty: 600 0RF ondansetron 4 mg tablet,disintegrating 4 mg PO Q8H PRN (Reason: nausea and vomiting) Qty: 15 0RF lidocaine 5 % adhesive patch,medicated 1 patch topical DAILY Qty: 30 1RF Rx Instructions: leave on most painful area for up to 12 hrs famotidine 20 mg tablet 20 mg PO BID methocarbamol 500 mg tablet 500 mg PO QID PRN (Reason: spasms) Qty: 30 1RF Follow-up/Referrals: Alessandro Gabriel MD [Primary Care Provider] - 10/13/24 Time of Disposition: 13:00
== END 2024-10-13 13:15 | disposition home or self-care (01) ==
PROVIDERS: Emergency Provider Registered Nurse; PCP Internal Medicine
DX: S30.810A Abrasion of lower back and pelvis, initial encounter (principal); S40.812A Abrasion of left upper arm, initial encounter; W22.8XXA Striking against or struck by other objects, initial encounter; I10 Essential (primary) hypertension; K21.9 Gastro-esophageal reflux disease without esophagitis; F41.9 Anxiety disorder, unspecified; F17.290 Nicotine dependence, other tobacco product, uncomplicated
CPT/HCPCS: 99212; G0463

== ENCOUNTER → 2024-11-26 14:21 | Outpatient (CLI) | payer OTHER, SELFPAY ==
--- NOTE | ~2024-11-26 | XR_ITS ---
EXAMINATION: XR chest 2V, 11/26/2024 14:33 CDT HISTORY: pain upper LT chest, fell 4x days ago, smoker COMPARISON: No comparisons available. Technique: 2 views obtained. Findings: The lungs are clear, no effusion. No pneumothorax. Heart is normal size. Mediastinal and hilar contours are within normal limits. Bony thorax no acute abnormality. Impression: No acute cardiopulmonary abnormality. Reviewed, dictated and finalized at location A. Impression: No acute cardiopulmonary abnormality.
== END ==
LOC: EXPCRAD 14:26
PROVIDERS: PCP Internal Medicine; Visit Provider Internal Medicine
DX: R07.89 Other chest pain (principal)
CPT/HCPCS: 71046

== ENCOUNTER 2025-01-18 08:47 | Emergency (ER) | payer OTHER, SELFPAY ==
[2025-01-18 09:00] VITALS: BP 119/79; PULSE 95; RESP 16; TEMP 37.4; O2SAT 100
--- NOTE | 2025-01-18 09:15 | ED.URI ---
HPI - URI/Sore Throat General Chief Complaint: Upper Respiratory Infection Stated Complaint: Sore Throat Time Seen by Provider: 01/18/25 09:15 Source: patient, RN notes reviewed and old records reviewed Mode of arrival: ambulatory Limitations: no limitations History of Present Illness HPI Narrative: 44-year-old female presents to the [facility] with complaints of a 3 day history of a burning, sore throat. Has taken ibuprofen. Denies fevers. Denies any other symptoms Related Data Home Medications ?Medication ?Instructions ?Recorded ?Confirmed ?Last Taken ?Type alprazolam 1 mg tablet 1 mg PO TID 06/08/21 11/25/23 Unknown History ergocalciferol (vitamin D2) 1,250 1,250 mcg PO DIRECTED 06/08/21 11/25/23 Unknown History mcg (50,000 unit) capsule omeprazole 20 mg capsule,delayed 20 mg PO DAILY 06/08/21 11/25/23 Unknown History release potassium chloride 10 mEq 40 meq PO DAILY 07/01/22 11/25/23 Unknown History tablet,extended release ferrous gluconate 324 mg (38 mg 324 mg PO DAILY 02/11/23 11/25/23 Unknown History iron) tablet furosemide 20 mg tablet 20 mg PO DAILY 03/07/23 11/25/23 Unknown History famotidine 20 mg tablet 20 mg PO BID 03/25/23 11/25/23 Unknown History tramadol 50 mg tablet See Rx Instructions .Route .COMPLEX 05/23/23 11/25/23 Unknown History divalproex 125 mg tablet,delayed mg PO 08/13/24 Unknown History release potassium chloride 20 mEq meq PO 08/13/24 Unknown History tablet,extended release acamprosate 333 mg tablet,delayed mg PO 10/13/24 Unknown History release Allergies Allergy/AdvReac Type Severity Reaction Status Date / Time cephalexin Allergy Intermediate Swelling Verified 01/18/25 09:25 Penicillins Allergy Intermediate Swelling Verified 01/18/25 09:25 Sulfa (Sulfonamide Allergy Intermediate Hives Verified 01/18/25 09:25 Antibiotics) vancomycin Allergy Intermediate Hives Verified 01/18/25 09:25 codeine Allergy Mild Nausea and Verified 01/18/25 09:25 Vomiting nitrofurantoin (From Allergy Mild Swelling Verified 01/18/25 09:25 Macrobid) Review of Systems Review of Systems: All systems reviewed & are unremarkable except as noted in HPI and below Constitutional: Constitutional: Reports no additional constitutional complaints ENT: Reports sore throat Cardiovascular: Cardiovascular: Reports no additional cardiovascular complaints, Denies chest pain and Denies dyspnea Respiratory: Respiratory: Reports no additional respiratory complaints, Denies chest congestion, Denies cough and Denies dyspnea Musculoskeletal: Musculoskeletal: Reports no additional musculoskeletal complaints Integumentary/Breasts: Skin/Breast: Reports system reviewed and no additional complaints, except as docu [facility] Past Medical History Medical History 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 Lumbosacral radiculopathy GERD (gastroesophageal reflux disease) Back pain Leg pain, bilateral Heart palpitations Asplenia Vapes nicotine containing substance Hypertension Anxiety Surgical History Surgical History H/O splenectomy thrombocytopenia,reports has 2 pancreatic stents Hx of cholecystectomy History of bladder suspension procedure Previous section Social History Social History Smoking packs per day: 1 Smoking cigarettes per day: 20.0 Years smoked: 20 Smoking pack-years: 20.00 Smoking status: Former smoker Tobacco type: cigarettes and e-cigarettes/vaping Additional smoking assessment comments: 1.5 YR VAPING Alcohol intake: former Substance use: former Substance use type: prescription drug Other substance usage details: FENTANYL Last use: 2008 Do You Feel Safe in your Home?: Yes Lack of Transportation: No Lack of Food: Sometimes True Current Housing: I Have Housing Concerned About Future Housing: Decline to Answer Difficulty Paying Gas/Electric Bills: YES Difficulty Paying for Meds: YES Currently Unemployed: Decline to Answer Education: High School Diploma/GED Difficulty w/ Childcare or Family Care: YES Living arrangements: alone Gender identity (if verbalized by the patient): Female Comments At the time of my signature, I reviewed and agree with the nursing past medical, surgical, social, and family history. There is no relevant family history pertinent to the patient complaint. Exam Const: General: cooperative, healthy appearing, comfortable, no acute distress, well developed, alert and well nourished Nutritional Appearance: well nourished Orientation/consciousness: patient oriented x3 Limitations: no limitations HENMT: Head: normal to inspection Ears: hearing grossly normal bilaterally, external ears normal, TM's normal bilaterally, EAC's normal, mastoids normal and no periauricular adenopathy Face and sinus: normal facial exam, sinuses nontender and face symmetric Mouth: Yes Normal oral and palatal mucosa present, Yes lip normal, Yes tongue normal and Yes moist mucous membranes Throat: posterior oropharynx normal, uvula midline and no uvular edema Eyes: General: appearance normal, both eyes and all related structures Alignment and Position: alignment normal Neck: Neck: normal visual inspection, full ROM, no lymphadenopathy and no meningeal signs Chest: Chest palpation & inspection: normal inspection of the chest Resp: Effort & Inspection: normal respiratory effort and able to speak in complete sentences Auscultation: clear to auscultation bilaterally, no crackles, no rales, no rhonchi and no wheezes Cardio: Rate: regular rate Skin: General skin exam: normal color and no rashes or lesions noted Neuro: General: patient oriented x3, gait normal, moves all extremities and no meningeal signs Cognition (Neuro): normal cognition Speech: normal speech Gait exam (Neuro): Normal gait present Extrem: General: normal to inspection, full ROM, capillary refill normal and normal gait Psych: Appearance: grossly normal and well kempt Mental Status: mental status grossly normal Speech and movement: Normal speech and movement present and Clear speech present Affect: normal affect Attitude: cooperative Course Course Level of Care: Express Care Visit Vital Signs Vital signs: Vital Signs Temperature 99.4 F 01/18/25 09:00 Pulse Rate 95 01/18/25 09:00 Respiratory Rate 16 01/18/25 09:00 Blood Pressure 119/79 01/18/25 09:00 Pulse Oximetry 100 01/18/25 09:00 Oxygen Delivery Room Air 01/18/25 09:00 Temperature 99.4 F 01/18/25 09:00 Pulse Rate 95 01/18/25 09:00 Respiratory Rate 16 01/18/25 09:00 Blood Pressure 119/79 01/18/25 09:00 Pulse Oximetry 100 01/18/25 09:00 Oxygen Delivery Room Air 01/18/25 09:00 Reviewed MDM - URI/Sore Throat MDM Narrative Medical decision making narrative: Patient sitting in exam room. Patient is nontoxic, vitals stable. Patient presents with 3 day history of a sore burning throat. Patient strep is negative, flu and COVID negative. Culture sent No acute findings noted on exam. Patient is appropriate for outpatient treatment with close follow-up Discharge instructions reviewed with patient, as well as provided in writing per nursing staff. The instructions also include specific and strict return/GO TO THE ER as well as f/u information. All questions have been answered, and the patient deny any further questions with discharge and discharge plan. Some parts of this dictation were generated by voice recognition software and may contain typographical and/or grammatical inaccuracies. Differential Diagnosis Differential diagnosis: Likely upper respiratory infection, otitis media, sinusitis, viral infection, bronchitis, influenza and pharyngitis Lab Data Labs: Lab Results 01/18/25 Range/Units 08:55 POC Influenza A Ag Negative (Negative) POC Influenza B Ag Negative (Negative) POC SARS CoV-2 Ag Negative (Negative) POC Grp A Strep Screen Negative (Negative) Reviewed Critical Care Time Critical Care Time Critical Care Time: No Discharge Plan Discharge Clinical Impression: Pharyngitis Qualifiers: Pharyngitis/tonsillitis etiology: unspecified etiology Qualified Code(s): J02.9 - Acute pharyngitis, unspecified Patient Disposition: Home Condition: Stable Instructions: Antibiotic Form, Pharyngitis (ED) Additional Instructions: Your rapid strep swab was negative today at [facility]. A throat culture will be sent to the laboratory for further testing. If the test is positive, you will receive a phone call within 48 hours and an appropriate antibiotic will be initiated at that time. Your rapid COVID test were negative Your rapid flu test was negative Your symptoms are likely due to a viral illness, which is not treated with antibiotics. Typically viral infections last 7-10 days, can linger for couple of weeks. It is very important to treat your symptoms. Drink plenty of water, Gatorade, Pedialyte, ice pops or Jell-O. -Alternate Tylenol and Motrin per package directions for fever or pain. You can alternate every 4 hours -Antihistamine medication such as Zyrtec/Claritin/Zhanna during the day can help improve symptoms. -doing daily nasal irrigations can help relieve pressure your sinuses. Things like a Neti pot -Use Flonase twice a day for 5 days then daily to help reduce the inflammation and dry up your sinuses. -You can also use Mucinex. Be sure to drink plenty of water with this medication at least 8 ounces with every dose and it is important to drink 8 to 10 glasses of water per day. Water is a natural decongestant -Eat and drink things that are easy to swallow, like tea or soup, or popsicles. -Oral rinses such as: Salt water gargles and/or may use topical anesthetic (eg. Chloraseptic spray) or lozenges to relieve dryness or throat pain). -Frequent hand washing or hand cabin supervisor is one of the best ways to prevent spread of infection. -Using a vaporizer or humidifier at night will also help thin secretions and help with coughing up phlegm. -Follow up with primary care provider in 7-10 days if condition is not improving - For new or worsening symptoms go directly to the nearest ER Patient Language: Citizen Of [place] Prescriptions: No Action folic acid 1 mg tablet 1 mg PO DAILY Qty: 30 0RF ferrous gluconate 324 mg (38 mg iron) tablet 324 mg PO DAILY divalproex 125 mg tablet,delayed release (DR/EC) PO potassium chloride 20 mEq tablet extended release PO albuterol sulfate 90 mcg/actuation HFA aerosol inhaler 2 puff inhalation QID PRN (Reason: shortness of breath or wheezing) Qty: 6.7 0RF (DME) Aerochamber MV Spacer See Rx Instructions .Route Qty: 1 0RF Rx Instructions: As directed fluticasone propionate [Flonase Allergy Relief] 50 mcg/actuation spray,suspension 1 spray intranasal DAILY Qty: 16 0RF Rx Instructions: administer into each nostril acamprosate 333 mg tablet,delayed release (DR/EC) PO alprazolam 1 mg tablet 1 mg PO TID omeprazole 20 mg capsule,delayed release(DR/EC) 20 mg PO DAILY ergocalciferol (vitamin D2) 1,250 mcg (50,000 unit) capsule 1,250 mcg PO DIRECTED Rx Instructions: WEEKLY-FRIDAY potassium chloride 10 mEq tablet extended release 40 meq PO DAILY furosemide 20 mg tablet 20 mg PO DAILY tramadol 50 mg tablet See Rx Instructions .ROUTE .COMPLEX Rx Instructions: Rx lidocaine HCl [Lidocaine Viscous] 2 % solution 1 applic mucous membrane TID PRN (Reason: pain) 7 Days Qty: 600 0RF lidocaine 5 % adhesive patch,medicated 1 patch topical DAILY Qty: 30 1RF Rx Instructions: leave on most painful area for up to 12 hrs famotidine 20 mg tablet 20 mg PO BID Follow-up/Referrals: Alessandro Gabriel MD [Primary Care Provider, Hospitalist] Time of Disposition: 09:28
[2025-01-18 09:20] LABS: EDCOVIDSCREEN Negative (Negative); EDINFLUASCREEN Negative (Negative); EDINFLUBSCREEN Negative (Negative); EDSTREPNEGPOS1 Negative (Negative)
== END 2025-01-18 09:30 | disposition home or self-care (01) ==
PROVIDERS: Emergency Provider Nurse Practitioner; PCP Internal Medicine
DX: J02.9 Acute pharyngitis, unspecified (principal); Z20.822 Contact with and (suspected) exposure to COVID-19; I10 Essential (primary) hypertension; K21.9 Gastro-esophageal reflux disease without esophagitis; F41.9 Anxiety disorder, unspecified; F17.290 Nicotine dependence, other tobacco product, uncomplicated
CPT/HCPCS: 87081; 87426; 87804; 87880; 99213; G0463